=== PATIENT | female | born 1940 | race Caucasian/White ===

== ENCOUNTER 2023-12-19 08:12 | Inpatient (IN) | payer MEDICARE, SELFPAY ==
[2023-12-18 19:50] VITALS: BP 133/87
[2023-12-18 20:00] VITALS: BP 120/73
[2023-12-18 20:05] LABS: % Basophils 0.3 % (0-2); % Eosinophils 2.5 % (0-6); % Immature Granulocytes 0.3 % (0-0.5); % Monocytes 6.9 % (1.7-9.3); Absolute Eosinophils 0.2 10^3/uL (0-0.7); Absolute Lymphocytes 2.6 10^3/uL (1.2-3.4); Absolute Monocytes 0.6 10^3/uL (0.1-0.6); Absolute Neutrophils 5.4 10^3/uL (1.4-6.5); Hematocrit 39.6 % (37.0-47.0); Hemoglobin 13.8 g/dL (12.0-16.0); Mean Corp Hgb Conc. 34.8 g/dL (33.0-37.0); Mean Corpuscular Hgb 32.1 pg (27.0-31.0); Mean Corpuscular Volume 92.1 fL (81.0-99.0); Mean Platelet Volume 9.4 fL (7.4-10.4); Nucleated Red Blood Cells % 0 %; Platelet Count 282 10^3/uL (130-400); Red Cell Dist. Width 13.5 % (11.5-14.5); White Blood Cell Count 8.8 10^3/uL (4.8-10.8)
[2023-12-18 20:20] LABS: ALT (SGPT) 22 U/L (0-35); AST (SGOT) 38 U/L (14-36); Albumin 4.1 g/dl (3.5-5.0); Alkaline Phosphatase 89 U/L (38-126); Blood Urea Nitrogen 13 mg/dl (7-17); Calcium 9.8 mg/dl (8.4-10.2); Carbon Dioxide 27 mmol/L (22-30); Chloride 104 mmol/L (98-107); Glucose 111 mg/dl (70-99); Sodium 137 mmol/L (135-145); Total Bilirubin 0.6 mg/dl (0.2-1.3); Total Protein 7.1 g/dl (6.3-8.2); eGFR 49.86
[2023-12-18 20:22] LABS: Lipase 39 U/L (23-300)
[2023-12-18] MEDS: NSS 500 IV (22:00)
--- NOTE | 2023-12-18 22:15 | ED.GENMED ---
Addendum entered and electronically signed by Eduardo Cordova MD 12/19/23 02:24:
CT abd/pel report received from [facility], suggestive of possible RLL filling defect along with right hydronephrosis with stent in place - recommending CTA PE study. Notified admitting hospitalist.
Original Note:
History of Present Illness
General
Chief Complaint: Abdominal Symptoms
Source: patient
Exam Limitations: none
Time Seen by Provider: 12/18/23 20:41
Nursing documentation reviewed up to this point in time: agreed with
Travel History
Have you had any contact with someone who has COVID-19?: Unable to Answer
Do you have any symptoms of coronavirus? Fever > 100 degrees, chills, cough, shortness of breath, sore throat, loss of taste or smell, muscle aches, or headache?: No
History of Present Illness
History of Present Illness:
Patient discharged from [facility] yesterday, presents to ED secondary to worsening generalized weakness, along with intermittent abdominal pain and vomiting episode. Upon arrival, patient is found to be hypoxic, requiring oxygen.
During admission, patient was diagnosed with obstructing kidney stone, requiring stent placement, along with fluid. Patient has had upper respiratory symptoms, which now has resolved. During that admission, daughter states that patient had low
oxygen level, requiring oxygen. Patient is scheduled to have stent removed as an outpatient in 10 days. Upon arrival, patient denies any abdominal pain.
Review of Systems
Review of Systems
Allergies reviewed?: Yes
All Other Systems: ROS reviewed and negative except as documented in HPI and ROS
Constitutional: Denies fever or chills
EENT: Reports no symptoms
Respiratory: Reports no symptoms
Cardiac: Reports no symptoms
ABD/GI: Reports abdominal pain, nausea and vomiting; Denies diarrhea
: Reports no symptoms
Musculoskeletal: Reports no symptoms
Skin: Reports no symptoms
Neurological: Reports no symptoms
Phy Exam
Physical Exam
Physical Exam:
Physical Exam
General: no apparent distress, not acutely ill. afebrile. weak appearing. hypoxic
Head: nc/at. eomi
Neck: supple. no meningeal signs.
Heart: s1/s2 regular rate and rhythm, no murmur. equal radial pulses.
Lungs: no acute respiratory distress. clear bilaterally
Abdomen: normal bowel sounds. not tender.
Neuro: alert and oriented. no focal neurological deficits
Skin: no rash
Psychiatric: well kept. interactive and cooperative
Extremities: no edema. no calf tenderness.
Course
Orders/Labs/Results
Orders:
Orders
12/18/23 20:01
Complete Blood Count/With Diff Urgent
Comprehensive Metabolic Panel Urgent
Lipase Urgent
12/18/23 20:02
Electrocardiogram (*1) Urgent
Reason for Study: Abdominal Pain
EKG- Treatment ONCE
12/18/23 20:50
0.9% Sodium Chloride 500 ml [Nss] 500 ml IV BOLUS
12/18/23 20:51
US Legs, Left [US Periph Venous LOWER Ext LT] Urgent
Comment:
Reason For Exam: swelling, recent foot fx
12/18/23 22:49
Urinalysis Reflex To Culture Urgent
Date Specimen was Collected: 12/18/23
Time Specimen was Collected: 22:48
Urine Microscopic Reflex Cult Urgent
Urine Culture Urgent
MJ Source: U
Specimen Description:
Date Specimen was Collected: 12/18/23
Time Specimen was Collected: 22:48
12/18/23 23:13
CefTRIAXone [Rocephin] 1,000 mg IV NOW STA
12/18/23 23:40
Dexamethasone Sod Phosphate [Decadron] 10 mg IV NOW STA
Diphenhydramine [Benadryl] 25 mg IV NOW STA
12/19/23 01:00
CT Abd/pelvis W Iv Cont Urgent
Reason For Exam: flank pain with hx renal stent placement
Abnormal Lab Results
12/18/23 12/18/23
20:01 22:49
MCH 32.1 H pg
(27.0-31.0)
Creatinine 1.1 H mg/dL
(0.6-1.0)
Glucose 111 H mg/dl
(70-99)
AST 38 H U/L
(14-36)
Urine Ketones 1+ A
(Negative)
Ur Occult Blood Reflex 4+ A
(Negative)
Urine Nitrite (Reflex) Positive A
(Negative)
Leukocyte Esterase Rfl 2+ A
(Negative)
Urine RBC >100 A /HPF
(0-2)
Urine WBC (Reflex) 16-20 A /HPF
(0-5)
Urine Bacteria (Reflex) Few A
(Negative)
Urine Albumin (Reflex) 3+ A
(Neg - Trace)
12/18/23 20:01
12/18/23 20:01
Vital Signs
Initial and Last Documented VS:
Initial Vital Signs
Temp Pulse Resp BP Pulse Ox
98.1 F 81 21 133/87 88
12/18/23 19:50 12/18/23 19:50 12/18/23 19:50 12/18/23 19:50 12/18/23 19:50
Last Documented Vital Signs
Temp Pulse Resp BP Pulse Ox
97.6 F 67 18 144/79 93
12/19/23 01:57 12/19/23 01:57 12/19/23 01:57 12/19/23 01:57 12/19/23 01:57
MDM/Problems Addressed
MDM/Problems Addressed:
Patient has been wearing left Ortho boot, secondary to foot fracture, which occurred 3 weeks ago. As such, left lower leg ultrasound obtained to evaluate for potential DVT.
(urology) notified via [facility] - requests CT abd/pel.
UA noted. Rocephin started.
Urine cx and blood cx pending.
*Critical Care Note
Total Time (30-74mins, 75-104mins- exclusive of procedures): Not Applicable
ED Attending Note
-
Portions of this chart may have been created with voice recognition software.� Occasional wrong word or��sound alike� substitutions may have occurred due to the inherent limitations of voice recognition software.
Discharge Plan
Departure
Patient Disposition: Admit
Date of Disposition: 12/18/23
Time of Disposition: 23:17
Presentation/result/management discussed w/ accepting MD/DO: Hospitalist
Discharge Problem:
Urinary tract obstruction by kidney stone, Acute UTI
Interventions
Interventions:
*Risk Screen - Suicide Last Done: 12/18/23 19:50
*General Assessment Last Done: 12/18/23 19:50
*Neglect/Abuse Screening Last Done: 12/18/23 19:50
ED- Fall Risk Assessment Last Done: 12/19/23 00:38
*ED COVID-19 Vaccine History Last Done: 12/18/23 19:50
*Nursing Disposition Last Done: 12/19/23 01:41
SD-Yzascm-Svbivbnnrs Assessment Last Done: 12/19/23 00:38
Discharge Date and Time
Discharge Date/Time: 12/19/23 01:41
[2023-12-18 22:58] LABS: Urine Albumin 3+ (Neg - Trace); Urine Bilirubin Negative (Negative); Urine Character Slightly Cloudy (Clear); Urine Color Amber; Urine Glucose Negative (Negative); Urine Ketone 1+ (Negative); Urine Leukocyte 2+ (Negative); Urine Nitrite Positive (Negative); Urine Occult Blood 4+ (Negative); Urine Urobilinogen Negative (Neg - 1+)
[2023-12-18 23:00] VITALS: BP 115/65
[2023-12-18 23:05] LABS: Urine Red Blood Cell >100 /HPF (0-2); Urine Squamous Cell 0-2 /LPF (Few)
[2023-12-18 23:07] LABS: Urine Bacteria Few (Negative); Urine White Cell 16-20 /HPF (0-5)
--- NOTE | 2023-12-18 23:38 | HPS.HSE ---
Family Physician
-
Family Physician: Tamera Ruby DO
Chief Complaint
-
Weakness
History of Present Illness
83 woman discharged from yesterday, s/p stent, presents with worsening generalized weakness, intermittent abdominal pain and a vomiting episode. In our ED she was found to be hypoxic, requiring oxygen. During her recent
admission to [facility], she was diagnosed with an obstructing kidney stone, had stent placement, along with IV fluids. She also has had upper respiratory symptoms, which now has resolved. She is scheduled to have stent removed as an outpatient in 10
days. Upon arrival, patient denies any abdominal pain. At the time of my interview she was comfortable and dozing. History was from her daughter.
Medical History
Past Medical History
Past Medical History: Reports Other
Additional Past Medical History:
Recent kidney stone
GERD
Mood disorder
Dementia
Asthma
Past Surgical History: Reports Other
Additional Past Surgical History:
Recent stent placement
Social History
Tobacco: Non-smoker
Alcohol: None
Drug: None
Living: Snf
Family History
Family History: Not pertinent
Allergies / Home Medications
Allergies reflects when Allergies were last updated in [facility].
Home Medications with original date entered in [facility]
Allergy/Medication List:
Allergies
Allergy/AdvReac Type Severity Reaction Status Date / Time
Iodinated Contrast Media Allergy Unknown Unknown Verified 12/18/23 19:49
latex Allergy Unknown Unknown Verified 12/18/23 19:49
Home Medications
Lactobacillus rhamnosus GG 10 billion cell capsule (Culturelle) 1 cap PO DAILY 12/18/23
acetaminophen 325 mg tablet (Tylenol) 650 mg PO Q6H PRN mild pain/fever 12/18/23
albuterol sulfate 90 mcg/actuation aerosol inhaler 2 puff inhalation R Q4HPRN PRN wheezing 12/18/23
aspirin 81 mg tablet,delayed release 81 mg PO DAILY 12/18/23
calcium carbonate 600 mg-vitamin D3 20 mcg (800 unit) chewable tablet (Caltrate 600 plus D) 1 tab PO BID@0800,1700 12/18/23
carbamide peroxide 6.5 % ear drops (Ear Wax Drops) 5 drp EACH EAR BID@799,199912/18/23
cranberry extract 250 mg tablet 250 mg PO DAILY 12/18/23
cyanocobalamin (vitamin B-12) 100 mcg tablet 100 mcg PO DAILY 12/18/23
donepezil 10 mg tablet 10 mg PO DAILY@199912/18/23
fexofenadine 180 mg tablet 180 mg PO DAILY 12/18/23
fiber 2 cap PO BID@0800,199912/18/23
gabapentin 300 mg capsule 300 mg PO BID@0800,199912/18/23
guaifenesin 100 mg/5 mL oral liquid 200 mg PO Q6HPRN PRN cough 12/18/23
loperamide 2 mg tablet (Anti-Diarrheal (loperamide)) 2 mg PO Q8HPRN PRN loose stools 12/18/23
magnesium oxide 400 mg PO BID@0800,1700 12/18/23
meclizine 12.5 mg tablet 12.5 mg PO BIDPRN PRN dizziness 12/18/23
memantine 28 mg capsule sprinkle,extended release 24hr 28 mg PO DAILY 12/18/23
miconazole nitrate 2 % topical cream 1 applic topical BID@0800,1999 brenton-area/labia 12/18/23
mineral oil-hydrophil petrolat topical ointment 1 applic topical DAILY B/L arms and legs 12/18/23
mirtazapine 15 mg tablet 7.5 mg PO DAILY@199912/18/23
nystatin 100,000 unit/gram topical powder 1 applic topical TID@0800,1400,2000 breast/abdominal area 12/18/23
omega 4-ymp-ixi-fish oil 1,000 mg (120 mg-180 mg) capsule (Fish Oil) 1 cap PO DAILY 12/18/23
omeprazole 20 mg capsule,delayed release 40 mg PO BID@0800,1700 12/18/23
sertraline 50 mg tablet 50 mg PO DAILY 12/18/23
tamsulosin 0.4 mg capsule 0.4 mg PO DAILY 12/18/23
therapeutic multivitamin 1 tab PO DAILY 12/18/23
zinc oxide 20 % topical ointment 1 applic topical BID@0800,1999 sacrum 12/18/23
Review of Systems
-
Unable to obtain full review of systems at this time due to: Acuity
History Source: Patient
Physical Exam
Vital Signs
Vital Signs
Temp Pulse Resp BP Pulse Ox
98.1 F 70 16 120/73 94
12/18/23 19:50 12/18/23 21:58 12/18/23 21:58 12/18/23 20:00 12/18/23 21:58
Physical Exam
General: Well Developed, Well Nourished, No Apparent Distress and Comfortable
HEENT: NormoCephalic, Nose Appears Normal and Ears Appear Normal
Respiratory: Clear
Cardiac: S1/S2 and Regular Rhythm
GI: Soft, Non Tender and Non Distended
Musculoskeletal: No Clubbing, No Cyanosis and No Edema
Skin: Warm and Dry; No Rash
Psych: Calm
Laboratory Results
-
12/18/23 20:01
12/18/23 20:01
Laboratory Results
Total Bilirubin 0.6 mg/dl (0.2-1.3) 12/18/23 20:01
AST 38 U/L (14-36) H 12/18/23 20:01
ALT 22 U/L (0-35) 12/18/23 20:01
Alkaline Phosphatase 89 U/L (38-126) 12/18/23 20:01
Lipase 39 U/L (23-300) 12/18/23 20:01
Data Reviewed
-
Lab Data: Labs Reviewed by me
Impression/Plan
-
IMPRESSION:
83 woman who comes in with weakness after kidney stone
PLAN:
1. weakness s/p stone and stent, UA shows possible infection. NO WBC rise, no fever.
IV antibiotics
IV fluids
Urology eval in am
2. Otherwise stable, and will give usual meds.
Code: DNR
DVTp with VCD
[2023-12-19] MEDS: BENADRYL 25 MG IV ×2 (00:06→03:45)
[2023-12-19] MEDS: ROCEPHIN 1000 MG IV ×2 (00:06→22:19)
[2023-12-19] MEDS: DECADRON 10 MG IV ×2 (01:15→03:44)
[2023-12-19 01:57] VITALS: BP 144/79
[2023-12-19] MEDS: NSS 1000 IV ×2 (03:11→15:18)
--- NOTE | 2023-12-19 03:25 | PTCARENOTE ---
Addendum entered by Rell Simon RN 12/19/23 06:19:
Operations Staff Specialist Security contacted by radiologist Herber of pts newest CT results. ABA Ramirez made aware. PUBLIC RELATIONS ACCOUNT EXECUTIVE placed order for telemetry and heparin.
Original Note:
Operations Staff Specialist Security contacted by ABA Ramirez pt needed another CT d/t results and that prep was needed. Benadryl and Decadron given IV to pt per order, CT was contacted after. CT informed to bring pt down at 0445.
[2023-12-19 06:46] LABS: Hematocrit 42.2 % (37.0-47.0); Hemoglobin 14.5 g/dL (12.0-16.0); Mean Corp Hgb Conc. 34.4 g/dL (33.0-37.0); Mean Corpuscular Hgb 31.5 pg (27.0-31.0); Mean Corpuscular Volume 91.7 fL (81.0-99.0); Mean Platelet Volume 9.7 fL (7.4-10.4); Platelet Count 276 10^3/uL (130-400); Red Cell Dist. Width 13.2 % (11.5-14.5); White Blood Cell Count 7.4 10^3/uL (4.8-10.8)
[2023-12-19 07:17] LABS: Blood Urea Nitrogen 12 mg/dl (7-17); Calcium 9.1 mg/dl (8.4-10.2); Carbon Dioxide 24 mmol/L (22-30); Chloride 107 mmol/L (98-107); Glucose 159 mg/dl (70-99); Potassium 4.6 mmol/L (3.5-5.1); Sodium 137 mmol/L (135-145); eGFR > 60.00
[2023-12-19 07:30] VITALS: BP 158/82
[2023-12-19] MEDS: ASPIR LOW (ENTERIC COATED) 81 MG PO (08:17)
[2023-12-19] MEDS: FIBERCON 625 MG PO ×2 (08:17→20:25)
[2023-12-19] MEDS: PROTONIX 40 MG PO ×2 (08:17→16:25)
[2023-12-19] MEDS: CLARITIN 10 MG PO (08:17)
[2023-12-19] MEDS: NEURONTIN 300 MG PO ×2 (08:17→20:25)
[2023-12-19] MEDS: MAGNESIUM OXIDE 500 MG PO ×2 (08:17→16:25)
[2023-12-19] MEDS: OSCAL 500 + D 500 MG PO ×2 (08:17→16:25)
[2023-12-19] MEDS: FLOMAX 0.400000000000000022 MG PO (08:17)
[2023-12-19] MEDS: VITAMIN B-12 100 MCG PO (08:17)
[2023-12-19] MEDS: THERAGRAN 1 TABLET PO (08:18)
[2023-12-19] MEDS: NAMENDA 10 MG PO ×2 (08:18→20:25)
[2023-12-19] MEDS: ZOLOFT 50 MG PO (08:18)
[2023-12-19] MEDS: DEBROX EAR DROPS 5 DROP BOTH EARS ×2 (08:18→20:25)
[2023-12-19] MEDS: DESENEX/MITRAZOL/ZEASORB 1 APPLIC TOPICAL ×2 (08:18→20:26)
[2023-12-19] MEDS: VISBIOME 1 CAP PO (08:18)
[2023-12-19] MEDS: HYDROPHOR 1 APPLIC TOPICAL (08:19)
[2023-12-19] MEDS: ZINC OXIDE OINTMENT 1 APPLIC TOPICAL ×2 (08:19→20:26)
[2023-12-19] MEDS: HEPARIN 25000 UNITS/250 ML IV (08:24)
--- NOTE | 2023-12-19 11:13 | W.PN.HOSP.TC ---
Today's Communication/Plan
-
hep gtt
monitor HR and o2 sats
echo
iv abx
await urine culture
Assessment / Plan
Assessment / Plan
#Acute bilateral pulmonary embolism with mild right heart strain
With recent hospitalization ? Provoked due to decreased mobility
Started patient on heparin infusion
Eventual transition to Eliquis
Check echocardiogram
Lower extremity left Doppler negative
Will consult pulmonary
#Left foot fracture with Ortho boot
Venous Doppler negative for DVT
#Recent obstructive renal stone status post ureteral stent placement at [facility] by Dr. Gill
Abnormal UA
On prophylactic antibiotics until culture results
Urology has been consulted in ER
CT abdomen with stent in proper position. Hydronephrosis noted
Records requested.
#Dementia
Continue with memantine and donepezil
Unclear if with behavioral disturbances
#Mood disorder
Continue with sertraline and Remeron
#GERD
Continue with PPI
Neuropathy
Cont with gabapentin
DVT ppx-hep gtt
d/w with daughter Holley over the phone in details
Anticipated Discharge: > 48 hours
Subjective/Interval History
-
Date of Service: December 19, 2023
Denies any chest pain or sob
on room air
Objective Data
-
Labs:
Laboratory Results
12/19/23 12/19/23 12/19/23
06:15 06:15 06:15
WBC Cancelled 7.4
Hgb Cancelled 14.5
Hct Cancelled
Plt Count
APTT
Sodium
Potassium
Chloride
Carbon Dioxide
BUN
Creatinine
Glucose
Calcium
12/19/23 12/19/23 12/19/23
06:15 06:15 12:15
WBC
Hgb
Hct 42.2
Plt Count Cancelled 276
APTT 34.0 Pending
Sodium 137
Potassium 4.6
Chloride 107
Carbon Dioxide 24
BUN 12
Creatinine 0.9
Glucose 159 H
Calcium 9.1
Vital Signs:
Vital Signs
Temp Pulse Resp BP Pulse Ox
97.9 F 66 16 158/82 92
12/19/23 07:30 12/19/23 07:30 12/19/23 07:30 12/19/23 07:30 12/19/23 07:30
I&O
12/18/23 12/19/23 12/20/23
06:59 06:59 06:59
Intake Total 125 / 125
Balance 125 / 125
Physical Exam
-
General: Well Developed and No Apparent Distress
HEENT: Normocephalic, Atraumatic and Moist Mucous Membranes
Respiratory: Clear to Auscultation
Cardiac: Regular Rhythm and S1/S2; Negative Murmur, Rub or Gallop
GI: Soft, Nontender, Nondistended and Normal Bowel Sounds; Negative Organomegaly
Rectal: Deferred by Provider
Musculoskeletal: No Clubbing, No Cyanosis and No Edema
Skin: Negative Rash
Neuro: Awake, No Motor Deficits and Nonfocal/Grossly Intact
Psych: Calm and Apparent Dementia
Data Reviewed
-
Total Time Spent with Patient (in minutes): 56
[2023-12-19] MEDS: TYLENOL 1000 MG PO (12:03)
[2023-12-19] MEDS: MYLICON 80 MG PO (12:03)
--- NOTE | 2023-12-19 12:46 | W.PN.URO.CBU ---
Today's Communication / Plan
-
no gu creative intern[vention if family returns tid=dipika james-xt me
Assessment / Plan
-
stent pain and abd pi=ain after recent stenting Has 6 mm stone rt renal pelvis and some rt sided stranding. no fevr chils or wbc Await ur cxs. AT this poinr will defer to r]urology at [facility] for management of stone and stent in light of
pulm emboli . While at will encourage fluids and watch cxs Antibiotics per cx
Diagnosis
-
Date of Service: December 19, 2023
-
Patient Diagnosis:
stone with stent has stent pain stione not obstrucvting await cxs but sxs probably due to pulm emboli
Post Op Day:
Subjective
-
rlq discomfort
Objective
-
Vital Signs
Temp Pulse Resp BP Pulse Ox
97.9 F 66 16 158/82 92
12/19/23 07:30 12/19/23 07:30 12/19/23 07:30 12/19/23 07:30 12/19/23 07:30
Intake and Output
12/18/23 12/19/23 12/20/23
06:59 06:59 06:59
Intake Total 125 / 125
Balance 125 / 125
Intake:
IV fluids (Total) 125 / 125
Laboratory Results
12/19/23 06:15
12/19/23 06:15
Review of Systems
-
Constitutional: Fatigue
Respiratory: Cough and Trouble Breathing
Abdomen/GI: Abdominal Pain and Nausea
: Frequency and Flank Pain
Physical Exam
-
General - well developed, well nourished, no acute distress
Chest - clear bilaterally
Abdomen - soft, non-tender, positive bowel sounds, no CVAT, no incisional pain or distention
Genitalia - normal
Rectal - normal
Skin - warm & dry with no rash
Neuro - AOx3, no motor deficits
Extremities - no clubbing, no cyanosis, no edema
Incision - clean, dry
Dressing - clean, dry, intact
Counseling
-
per hospitalist
Care Review
Data Reviewed
Discussed with: Hospitalist and Nursing
CT Scan: Image Pers Reviewed
[2023-12-19 12:47] LABS: APTT 142.5 Sec (23.4-35.0)
--- NOTE | 2023-12-19 14:24 | CON.PUL ---
Consultation
Consultation Request
Date/Time Consultation Requested: 12/19/2023
Date/Time Consultation Performed: 12/19/2023
Requesting Provider: Dr. Mo
Performing Provider: Dr. Scott Merritt
Reason for Consultation: Acute pulmonary embolism
Medical History
-
History of Present Illness:
83-year-old woman discharged from [facility] yesterday after placement of urinary stent, presented with generalized weakness, intermittent abdominal pain and vomiting. Found to be hypoxic. During the hospital stay patient was diagnosed
with kidney stone.
Patient unable to provide history.
Evaluation in the hospital included a CT of the chest abdomen and pelvis. She was found to have bilateral pulmonary embolism.
Currently on very low rate ox supplementation.
Not on distress.
Due to to her underlying dementia unable to provide detailed history.
On a heparin drip.
Past Medical History
Past Medical History: Other (See assessment and plan section)
Social History
Tobacco: Non-smoker
Alcohol: None
Drug: None
Living: Senior Living
Family History
Family History: Reviewed & Not Pertinent
Allergies / Home Medications
Allergies
Allergy/AdvReac Type Severity Reaction Status Date / Time
Iodinated Contrast Media Allergy Unknown Unknown Verified 12/18/23 19:49
latex Allergy Unknown Unknown Verified 12/18/23 19:49
Home Medications
�Medication �Instructions �Recorded �Confirmed �Last Taken �Type
Lactobacillus rhamnosus GG 10 1 cap PO DAILY 12/18/23 12/18/23 Unknown History
billion cell capsule (Culturelle)
acetaminophen 325 mg tablet 650 mg PO Q6H PRN mild pain/fever 12/18/23 12/18/23 Unknown History
(Tylenol)
albuterol sulfate 90 mcg/actuation 2 puff inhalation R Q4HPRN PRN 12/18/23 12/18/23 Unknown History
aerosol inhaler wheezing
aspirin 81 mg tablet,delayed 81 mg PO DAILY Blood Clot 12/18/23 12/18/23 Unknown History
release Prevention/Tx
calcium carbonate 600 mg-vitamin 1 tab PO BID@0800,1700 Supplement 12/18/23 12/18/23 Unknown History
D3 20 mcg (800 unit) chewable
tablet (Caltrate 600 plus D)
carbamide peroxide 6.5 % ear drops 5 drp EACH EAR BID@799,1999 EAR 12/18/23 12/18/23 Unknown History
(Ear Wax Drops) WAX
cranberry extract 250 mg tablet 250 mg PO DAILY Supplement 12/18/23 12/18/23 Unknown History
cyanocobalamin (vitamin B-12) 100 100 mcg PO DAILY Supplement 12/18/23 12/18/23 Unknown History
mcg tablet
donepezil 10 mg tablet 10 mg PO DAILY@199912/18/23 12/18/23 Unknown History
fexofenadine 180 mg tablet 180 mg PO DAILY 12/18/23 12/18/23 Unknown History
fiber 2 cap PO BID@08,199912/18/23 12/18/23 Unknown History
gabapentin 300 mg capsule 300 mg PO BID@799,199912/18/23 12/18/23 Unknown History
guaifenesin 100 mg/5 mL oral liquid 200 mg PO Q6HPRN PRN cough 12/18/23 12/18/23 Unknown History
loperamide 2 mg tablet 2 mg PO Q8HPRN PRN loose stools 12/18/23 12/18/23 Unknown History
(Anti-Diarrheal (loperamide))
magnesium oxide 400 mg PO BID@0800,1700 12/18/23 12/18/23 Unknown History
meclizine 12.5 mg tablet 12.5 mg PO BIDPRN PRN dizziness 12/18/23 12/18/23 Unknown History
memantine 28 mg capsule 28 mg PO DAILY 12/18/23 12/18/23 Unknown History
sprinkle,extended release 24hr
miconazole nitrate 2 % topical 1 applic topical BID@799,199912/18/23 12/18/23 Unknown History
cream brenton-area/labia
mineral oil-hydrophil petrolat 1 applic topical DAILY B/L arms 12/18/23 12/18/23 Unknown History
topical ointment and legs
mirtazapine 15 mg tablet 7.5 mg PO DAILY@199912/18/23 12/18/23 Unknown History
nystatin 100,000 unit/gram topical 1 applic topical 12/18/23 12/18/23 Unknown History
powder TID@0800,1400,1999
breast/abdominal area
omega 2-ydd-ftt-fish oil 1,000 mg 1 cap PO DAILY 12/18/23 12/18/23 Unknown History
(120 mg-180 mg) capsule (Fish Oil)
omeprazole 20 mg capsule,delayed 40 mg PO BID@0800,1700 12/18/23 12/18/23 Unknown History
release Gastrointestinal Issue
sertraline 50 mg tablet 50 mg PO DAILY Mental 12/18/23 12/18/23 Unknown History
Health/Anxiety
tamsulosin 0.4 mg capsule 0.4 mg PO DAILY 12/18/23 12/18/23 Unknown History
therapeutic multivitamin 1 tab PO DAILY Supplement 12/18/23 12/18/23 Unknown History
zinc oxide 20 % topical ointment 1 applic topical BID@799,199912/18/23 12/18/23 Unknown History
sacrum
Review of Systems
-
History Source: Patient
All other systems: Negative unless noted
Vitals / Labs / Diagnostic Testing
Vital Signs
Temp Pulse Resp BP Pulse Ox
97.9 F 66 16 158/82 92
12/19/23 07:30 12/19/23 07:30 12/19/23 07:30 12/19/23 07:30 12/19/23 07:30
Lab Data
12/19/23 06:15
12/19/23 06:15
Laboratory Results
12/19/23 12/19/23
06:15 12:06
APTT 34.0 142.5 H
Diagnostic Testing:
Physical Exam
-
HEENT: Normocephalic
Cardiovascular: S1/S2
Respiratory: Clear
GI: Soft and Non Distended
Neurology: Awake
General: Respiratory Distress (n)
Assessment
-
83-year-old woman who recently was discharged from [facility] after developing obstructive uropathy, status post stent placement, found to have kidney stone. Back to the hospital not feeling well. Evaluation including CT chest abdomen
pelvis. Discovered to have bibasilar pulmonary embolism.
Acute respiratory insufficiency-2 L of oxygen.
Acute pulmonary embolism-provoked due to recent hospital stay
CT chest: Reviewed there are central pulmonary arterial filling defects in the right lower lobe pulmonary artery and in the segmental pulmonary arteries of both lower lobes consistent with acute bilateral pulmonary arterial embolic disease.
There is no pericardial or pleural effusion. There is a mild amount of subpleural subsegmental atelectasis and scarring in the basilar segments of both lower lobes and in the lingula.
Recent obstructive kidney stone [facility]: Status post stent.
Conditions present prior admission:
GERD
Kidney stones status post double-J stents [facility] 11/2023
Dementia
neuropathy
History of asthma
Left foot fracture: Orthopedic boot in place
Lower extremity Dopplers negative for DVT
Assessment and plan:
Provoked pulmonary embolism.
Hemodynamically stable, not tachycardic.
Minimal oxygen requirements.
Lower extremity Dopplers without DVT
Continue anticoagulation, okay to transition to oral anticoagulation in the next 24 hours if she remains stable.
Follow PTT.
Would recommend 3 months of anticoagulation as long as the patient is mobile at that time.
-
Incentive spirometry
Wean down oxygen as able. Maintain pulse ox above 90%.
-
Antibiotics for possible UTI.
Recent double-J stents placement.
-
Outpatient pulmonary follow-up.
[2023-12-19 16:00] VITALS: BP 144/71
--- NOTE | 2023-12-19 16:00 | CM ---
Patient seen bedside, unable to conduct initial assessment due to confusion, patient reports she lives with her siblings and her grandmother Yancy. CM left voicemail to [facility] requesting to speak to patients nurse to obtain PLOF, awaiting return call
back. CM spoke with patients daughter, Holley, to conduct initial assessment. Per Holley, patient resides in the memory care unit, uses a walker to ambulate. Holley reports patient has been to [facility] in 2018. Holley confirms patients PCP
Tamera Ruby, pharmacy [facility]. CM will continue to follow for discharge planning needs, per PT, no skilled need.
Plan; return to [facility] when stable
[2023-12-19 18:55] VITALS: BP 127/84
--- NOTE | 2023-12-19 18:55 | PTCARENOTE ---
Pt was changed and depends was soaked with bloody urine. Dr. Mo aware. BP is 127/84. Pt on heparin gtt at 16 ml/hr. If bleeding continues, will hold heparin.
[2023-12-19 20:06] LABS: Hematocrit 38.6 % (37.0-47.0); Hemoglobin 13.5 g/dL (12.0-16.0)
[2023-12-19 20:25] LABS: APTT 179.2 Sec (23.4-35.0)
[2023-12-19] MEDS: ARICEPT 10 MG PO (20:25)
[2023-12-19] MEDS: REMERON 7.5 MG PO (20:25)
[2023-12-19] MEDS: STERILE WATER FOR INJECTION 10 ML IV (22:18)
[2023-12-19 23:37] VITALS: BP 151/85
[2023-12-20] MEDS: HEPARIN 25000 UNITS/250 ML IV (03:46)
[2023-12-20] MEDS: NSS 1000 IV (03:58)
[2023-12-20 04:07] LABS: Hematocrit 36.3 % (37.0-47.0); Hemoglobin 12.5 g/dL (12.0-16.0)
[2023-12-20 04:17] LABS: APTT 78.2 Sec (23.4-35.0)
[2023-12-20 07:00] VITALS: BP 143/85
[2023-12-20] MEDS: DESENEX/MITRAZOL/ZEASORB 1 APPLIC TOPICAL ×2 (07:54→19:40)
[2023-12-20] MEDS: DEBROX EAR DROPS 5 DROP BOTH EARS (07:54)
[2023-12-20] MEDS: ZINC OXIDE OINTMENT 1 APPLIC TOPICAL ×2 (07:56→19:41)
[2023-12-20] MEDS: FLOMAX 0.400000000000000022 MG PO (07:56)
[2023-12-20] MEDS: FIBERCON 625 MG PO ×2 (07:56→19:40)
[2023-12-20] MEDS: NAMENDA 10 MG PO ×2 (07:56→19:40)
[2023-12-20] MEDS: MAGNESIUM OXIDE 500 MG PO ×2 (07:56→16:03)
[2023-12-20] MEDS: VISBIOME 1 CAP PO (07:56)
[2023-12-20] MEDS: CLARITIN 10 MG PO (07:56)
[2023-12-20] MEDS: OSCAL 500 + D 500 MG PO ×2 (07:56→16:03)
[2023-12-20] MEDS: THERAGRAN 1 TABLET PO (07:56)
[2023-12-20] MEDS: VITAMIN B-12 100 MCG PO (07:56)
[2023-12-20] MEDS: PROTONIX 40 MG PO ×2 (07:56→16:03)
[2023-12-20] MEDS: NEURONTIN 300 MG PO ×2 (07:56→19:40)
[2023-12-20] MEDS: ZOLOFT 50 MG PO (07:56)
[2023-12-20] MEDS: ASPIR LOW (ENTERIC COATED) 81 MG PO (07:56)
[2023-12-20] MEDS: HYDROPHOR 1 APPLIC TOPICAL (07:59)
[2023-12-20] MEDS: MAXIPIME 2000 MG IV ×2 (09:15→17:01)
[2023-12-20] MEDS: STERILE WATER FOR INJECTION 10 ML IV ×2 (09:15→17:01)
--- NOTE | 2023-12-20 10:09 | W.PN.PUL3 ---
Today's Communication / Plan
-
AC
Check RLE duplex US
Transition to NOAC tomorrow assuming it is affordable
Maintain SpO2>90%
Assessment
-
83-year-old woman who recently was discharged from [facility] after developing obstructive uropathy, status post stent placement, found to have kidney stone. Back to the hospital not feeling well. Evaluation including CT chest abdomen
pelvis. Discovered to have bibasilar pulmonary embolism.
Acute respiratory insufficiency-2 L of oxygen.
Acute submassive pulmonary embolism- likely provoked due to recent hospital stay
CTA chest: Reviewed there are central pulmonary arterial filling defects in the right lower lobe pulmonary artery and in the segmental pulmonary arteries of both lower lobes consistent with acute bilateral pulmonary arterial embolic disease.
There is no pericardial or pleural effusion. There is a mild amount of subpleural subsegmental atelectasis and scarring in the basilar segments of both lower lobes and in the lingula.
Recent obstructive kidney stone [facility]: Status post stent.
Conditions present prior admission:
GERD
Kidney stones status post double-J stents [facility] 11/2023
Dementia
neuropathy
Morbid obesity
History of asthma
Left foot fracture: Orthopedic boot in place
Lower extremity Dopplers negative for DVT
Assessment and plan:
Provoked pulmonary embolism.
Hemodynamically stable, not tachycardic.
Minimal oxygen requirements.
Left lower extremity Doppler without DVT and normal RV size and systolic function on TTE from 12/19/2023
Check right lower extremity Doppler to r/o DVT
Continue anticoagulation, okay to transition to oral anticoagulation in the next 24 hours if she remains stable.
Follow PTT while on heparin gtt.
Would recommend 3 months of anticoagulation as long as the patient is mobile at that time.
Outpatient hematology consultation recommended as she does carry risk factors for continued provoked PE given her morbid obesity and suspected sedentary lifestyle
-
Incentive spirometry
Wean down oxygen as able. Maintain pulse ox above 90%.
-
Antibiotics for possible UTI.
Recent double-J stents placement.
-
Outpatient pulmonary follow-up.
Total time spent today was 35 minutes for this encounter. Time includes reviewing laboratory test/imaging results, reviewing pertinent medical records, obtaining and reviewing medical history, performing an appropriate exam, ordering medications,
tests and procedures. Time also includes documentation of this encounter, coordinating patient care and communicating with other healthcare professionals. Total time does not include separately billed tests performed on this date of service.
Subjective Data
-
Date of Service:
Date of Service: December 20, 2023
Chief Complaint: Pulmonary Follow Up
Subjective:
Patient seen today at bedside. She feels well and denies shortness of breath. Currently on 2 L/min nasal cannula. She is on heparin drip as well. Per nursing staff, patient has baseline confusion/dementia.
Review of Systems
General: Other (Unable to obtain due to patient's acute clinical status/dementia)
Objective Data
Data Reviewed
Vital Signs / I&O / Oxygen:
Vital Signs
Temp Pulse Resp BP Pulse Ox
97.5 F 66 20 143/85 96
12/20/23 07:00 12/20/23 07:00 12/20/23 07:00 12/20/23 07:00 12/20/23 07:00
Intake and Output
12/19/23 12/20/23 12/21/23
06:59 06:59 06:59
Intake Total 125 / 125 600 / 600
Balance 125 / 125 600 / 600
SaO2 96
Nasal Cannula flow liters per 2
minute
Physical Exam
General: Respiratory Distress (negative), Comfortable and Other (Morbidly obese)
HEENT: Normocephalic and Anicteric
Cardiovascular: S1-S2 and Peripheral Edema (negative)
Respiratory: Wheeze (negative), Crackles (negative), Rhonchi (negative) and Non-Labored Respirations
GI: Soft, Non Tender, Normal Bowel Sounds and Other (Abdominal obesity)
Neurology: Awake and Alert
Skin: Warm, Dry and Cyanosis (negative)
Labs/Micro/Reports
Lab Data
12/19/23 06:15
Laboratory Results
12/19/23 12/19/23 12/20/23
12:06 19:56 03:53
APTT 142.5 H 179.2 H* 78.2 H
Microbiology
12/19/23 05:32 Nose MRSA Screen - Final
No Methicillin Resistant Staphylococcus aureus isolated.
12/18/23 22:49 Urine Urine Culture - Preliminary
Enterococcus species
Pseudomonas aeruginosa
[2023-12-20 10:12] LABS: Hematocrit 39.8 % (37.0-47.0); Hemoglobin 13.6 g/dL (12.0-16.0)
[2023-12-20] MEDS: AMPICILLIN 104 MG IV ×3 (10:14→22:19)
[2023-12-20 10:18] LABS: APTT 86.3 Sec (23.4-35.0)
[2023-12-20 11:00] VITALS: BP 120/69
--- NOTE | 2023-12-20 11:34 | W.PN.HOSP.TC ---
Today's Communication/Plan
-
Monitor urinary output
Continue with heparin for now
Hemoglobin trend daily
Switch to ampicillin and cefepime
Assessment / Plan
Assessment / Plan
#Acute bilateral pulmonary embolism with mild right heart strain
With recent hospitalization ? Provoked due to decreased mobility
Started patient on heparin infusion and continue for now. Patient with mild hematuria likely due to recent ureteral stent placement. Monitor for now. Hemoglobin has been stable.
Eventual transition to Eliquis
ECHO limited study as patient was argumentative. EF 55 to 60%. Diastolic function indeterminate. Right heart pressures could not be determined. Normal right ventricular size. Normal right ventricular systolic function.
Lower extremity left Doppler negative
Will consult pulmonary
#Left foot fracture with Ortho boot
Venous Doppler negative for DVT
#Recent obstructive renal stone status post ureteral stent placement at [place] by Dr. Gill
# Polymicrobial urinary tract infection with Enterococcus and Pseudomonas
Stop ceftriaxone. Patient on ampicillin and cefepime
Urology has been consulted in ER
CT abdomen with stent in proper position. Hydronephrosis noted
Records requested.
#Dementia
Continue with memantine and donepezil
Unclear if with behavioral disturbances
#Mood disorder
Continue with sertraline and Remeron
#GERD
Continue with PPI
Neuropathy
Cont with gabapentin
DVT ppx-hep gtt
d/w with daughter Holley over the phone in details on 12/18 and 12/19
Anticipated Discharge: > 48 hours
Subjective/Interval History
-
Date of Service: December 20, 2023
requiring 2L oxygen
no chest pain or sob
Objective Data
-
Labs:
Laboratory Results
12/20/23 12/20/23 12/20/23
03:53 10:01 16:00
Hgb 12.5 13.6
Hct 36.3 L 39.8
APTT 78.2 H 86.3 H Pending
Vital Signs:
Vital Signs
Temp Pulse Resp BP Pulse Ox
97.4 F 66 16 120/69 95
12/20/23 11:00 12/20/23 11:00 12/20/23 11:00 12/20/23 11:00 12/20/23 11:00
I&O
12/19/23 12/20/23 12/21/23
06:59 06:59 06:59
Intake Total 125 / 125 600 / 600
Balance 125 / 125 600 / 600
Physical Exam
-
General: Well Developed and No Apparent Distress
HEENT: Normocephalic, Atraumatic and Moist Mucous Membranes
Respiratory: Clear to Auscultation
Cardiac: Regular Rhythm and S1/S2; Negative Murmur, Rub or Gallop
GI: Soft, Nontender, Nondistended and Normal Bowel Sounds; Negative Organomegaly
Rectal: Deferred by Provider
Musculoskeletal: No Clubbing, No Cyanosis and No Edema
Skin: Negative Rash
Neuro: Awake, No Motor Deficits and Nonfocal/Grossly Intact
Psych: Calm and Apparent Dementia
Data Reviewed
-
Total Time Spent with Patient (in minutes): 56
[2023-12-20 15:00] VITALS: BP 118/79
[2023-12-20 18:19] LABS: APTT 103.2 Sec (23.4-35.0)
[2023-12-20 19:35] VITALS: BP 115/65
[2023-12-20] MEDS: ARICEPT 10 MG PO (19:40)
[2023-12-20] MEDS: REMERON 7.5 MG PO (19:40)
[2023-12-20] MEDS: DEBROX EAR DROPS 1 DROP BOTH EARS (19:41)
[2023-12-20] MEDS: STERILE WATER FOR INJECTION IV (22:31)
[2023-12-20 23:35] VITALS: BP 136/75
[2023-12-21] MEDS: HEPARIN 25000 UNITS/250 ML IV (00:52)
[2023-12-21] MEDS: STERILE WATER FOR INJECTION 10 ML IV ×3 (01:45→17:06)
[2023-12-21] MEDS: MAXIPIME 2000 MG IV ×3 (01:45→17:06)
[2023-12-21 03:29] VITALS: BP 135/83
[2023-12-21] MEDS: AMPICILLIN 104 MG IV ×2 (04:05→09:29)
[2023-12-21 07:03] LABS: APTT 93.1 Sec (23.4-35.0)
[2023-12-21 07:12] LABS: % Basophils 0.6 % (0-2); % Eosinophils 4.5 % (0-6); % Immature Granulocytes 0.3 % (0-0.5); % Monocytes 6.3 % (1.7-9.3); % Neutrophils 43.3 % (42.2-75.2); Absolute Eosinophils 0.3 10^3/uL (0-0.7); Absolute Lymphocytes 2.9 10^3/uL (1.2-3.4); Absolute Monocytes 0.4 10^3/uL (0.1-0.6); Absolute Neutrophils 2.8 10^3/uL (1.4-6.5); Hematocrit 38.9 % (37.0-47.0); Hemoglobin 13.1 g/dL (12.0-16.0); Mean Corp Hgb Conc. 33.7 g/dL (33.0-37.0); Mean Corpuscular Hgb 31.7 pg (27.0-31.0); Mean Corpuscular Volume 94.2 fL (81.0-99.0); Mean Platelet Volume 9.9 fL (7.4-10.4); Nucleated Red Blood Cells % 0 %; Platelet Count 276 10^3/uL (130-400); Red Blood Cell Count 4.13 10^6/uL (4.20-5.40); Red Cell Dist. Width 13.5 % (11.5-14.5); White Blood Cell Count 6.4 10^3/uL (4.8-10.8)
[2023-12-21 07:33] LABS: Blood Urea Nitrogen 14 mg/dl (7-17); Calcium 8.8 mg/dl (8.4-10.2); Carbon Dioxide 24 mmol/L (22-30); Chloride 112 mmol/L (98-107); Glucose 96 mg/dl (70-99); Sodium 141 mmol/L (135-145)
[2023-12-21 07:36] VITALS: BP 132/67
--- NOTE | 2023-12-21 07:57 | W.PN.HOSP.TC ---
Today's Communication/Plan
-
Will ask ID for input
Continue with heparin drip
Right lower extremity Doppler pending
PT and OT
Assessment / Plan
Assessment / Plan
#Acute bilateral pulmonary embolism with mild right heart strain
With recent hospitalization ? Provoked due to decreased mobility
Started patient on heparin infusion and continue for now. Patient with mild hematuria likely due to recent ureteral stent placement. Monitor for now. Hemoglobin has been stable.
Eventual transition to Eliquis
Right lower extremity Doppler pending
ECHO limited study as patient was argumentative. EF 55 to 60%. Diastolic function indeterminate. Right heart pressures could not be determined. Normal right ventricular size. Normal right ventricular systolic function.
Lower extremity left Doppler negative
Will consult pulmonary
#Left foot fracture with Ortho boot
Venous Doppler negative for DVT
Per daughter patient is able to ambulate with a walker and improved
#Recent obstructive renal stone status post ureteral stent placement at [place] by Dr. Gill
# Polymicrobial urinary tract infection with VRE Enterococcus and Pseudomonas
Culture data noted with clancy resistance to VRE and only susceptible to gentamicin and oral linezolid
Continue with cefepime. May require Zyvox or Gentamycin or may need additional susceptibility
If need for zyvox may need to hold SSRI and remeron
CT abdomen with stent in proper position. Hydronephrosis noted
Records requested.
Will request ID for input
#Dementia
Continue with memantine and donepezil
Unclear if with behavioral disturbances
#Mood disorder
Continue with sertraline and Remeron
#GERD
Continue with PPI
Neuropathy
History of sciatica
Cont with gabapentin
PT/OT ordered
DVT ppx-hep gtt
d/w with daughter Holley over the phone in details on daily basis. Last update 12/20
Anticipated Discharge: > 48 hours
Subjective/Interval History
-
Date of Service: December 21, 2023
on 2L oxygen
no chest pain or sob
Objective Data
-
Labs:
Laboratory Results
12/20/23 12/21/23
23:16 06:41
WBC 6.4
Hgb 13.1
Hct 38.9
Plt Count 276
APTT 116.0 H 93.1 H
Sodium 141
Potassium 4.0
Chloride 112 H
Carbon Dioxide 24
BUN 14
Creatinine 1.0
Glucose 96
Calcium 8.8
Vital Signs:
Vital Signs
Temp Pulse Resp BP Pulse Ox
98.8 F 75 20 135/83 94
12/21/23 03:29 12/21/23 03:29 12/21/23 03:29 12/21/23 03:29 12/21/23 03:29
I&O
12/20/23 12/21/23 12/22/23
06:59 06:59 06:59
Intake Total 600 / 600 810 / 810
Balance 600 / 600 810 / 810
Physical Exam
-
General: Well Developed and No Apparent Distress
HEENT: Normocephalic, Atraumatic and Moist Mucous Membranes
Respiratory: Clear to Auscultation
Cardiac: Regular Rhythm and S1/S2; Negative Murmur, Rub or Gallop
GI: Soft, Nontender, Nondistended and Normal Bowel Sounds; Negative Organomegaly
Rectal: Deferred by Provider
Musculoskeletal: No Clubbing, No Cyanosis and No Edema
Skin: Negative Rash
Neuro: Awake, No Motor Deficits and Nonfocal/Grossly Intact
Psych: Calm and Apparent Dementia
Data Reviewed
-
Total Time Spent with Patient (in minutes): 55
[2023-12-21] MEDS: VITAMIN B-12 100 MCG PO (09:27)
[2023-12-21] MEDS: CLARITIN 10 MG PO (09:27)
[2023-12-21] MEDS: ASPIR LOW (ENTERIC COATED) 81 MG PO (09:27)
[2023-12-21] MEDS: VISBIOME 1 CAP PO (09:27)
[2023-12-21] MEDS: THERAGRAN 1 TABLET PO (09:27)
[2023-12-21] MEDS: PROTONIX 40 MG PO ×2 (09:27→17:06)
[2023-12-21] MEDS: NAMENDA 10 MG PO (09:27)
[2023-12-21] MEDS: FIBERCON 625 MG PO (09:27)
[2023-12-21] MEDS: MAGNESIUM OXIDE 500 MG PO ×2 (09:27→17:06)
[2023-12-21] MEDS: FLOMAX 0.400000000000000022 MG PO (09:27)
[2023-12-21] MEDS: ZOLOFT 50 MG PO (09:27)
[2023-12-21] MEDS: NEURONTIN 300 MG PO (09:27)
[2023-12-21] MEDS: DEBROX EAR DROPS 1 DROP BOTH EARS (09:28)
[2023-12-21] MEDS: OSCAL 500 + D 500 MG PO ×2 (09:28→17:16)
[2023-12-21] MEDS: DESENEX/MITRAZOL/ZEASORB 1 APPLIC TOPICAL (09:28)
[2023-12-21] MEDS: HYDROPHOR 1 APPLIC TOPICAL (09:28)
[2023-12-21] MEDS: ZINC OXIDE OINTMENT 1 APPLIC TOPICAL (09:28)
--- NOTE | 2023-12-21 09:53 | CM ---
CM referral re Eliquis cost.
Verified Pharmacy with [facility].
Per [facility]- medication lookup, cost will be $47 per month.
Plan: back to [facility] when stable.
PT/OT (P)
--- NOTE | 2023-12-21 11:04 | PTCARENOTE ---
Notified provider that the patient had continued dark red blood in her urine and that it was foul smelling.
[2023-12-21 11:30] LABS: Glucose - Point of Care 102 mg/dl (70-99)
[2023-12-21 11:38] VITALS: BP 140/76
[2023-12-21 13:59] LABS: APTT 90.7 Sec (23.4-35.0)
--- NOTE | 2023-12-21 15:22 | CON.ID ---
Consultation
-
Date/Time Consultation Requested: December 21, 2023 1210
Date/Time Consultation Performed: December 21, 2023 1522
Requesting Provider: Dr. Ibrahima Mo
Performing Provider: Dr. Shyla Lucas
Reason for Consultation: VRE, Pseudomonas UTI
Chief Complaint / Past History
Chief Complaint
Shortness of breath and abdominal pain
History of Present Illness
History obtained from her daughter at bedside since patient has dementia and unable to provide full history. She is an 83-year-old female with history of recurrent UTI, nephrolithiasis, who was recently hospitalized at [facility] for 4 days due
to obstructive right uropathy status post right ureter stent placement. She was discharged from the hospital December 16. She was sent to the ER on December 17 due to shortness of breath, hypoxia, nausea, abdominal pain. CAT scan of the abdomen and
pelvis showed large PE, right stent in place with mild to moderate hydronephrosis and mild KAEL-ureteral inflammation. Patient was placed on cefepime. The urine culture came back positive for Pseudomonas and VRE resistant to ampicillin. Per
daughter, patient has been complaining of pain with urination and the abdomen abdominal pain located on the right side. Also she noticed gross hematuria. No fever or chills. There is slight change in her mental status.
Past History
Additional Past Medical History:
Dementia
Asthma
nephrolithiasis
Recent obstructive uropathy s/p right ureter stent
Neuropathy
Sciatica
Mood disorder
Recurrent UTI
Class III obesity BMI 47
left foot fracture
h/o obstipation/perforated bowel s/p repair
B TKA
Allergy History:
Iodinated Contrast Media Allergy (Unknown, Verified 12/18/23 19:49)
Unknown
latex Allergy (Unknown, Verified 12/18/23 19:49)
Unknown
Medications Reviewed: Yes
Current Antibiotics:
Unasyn
Cefepime
Social History
Tobacco: Non-Smoker
Alcohol: None
Drug: None
Living: Retirement ([facility] care)
Family History
Family History: Not Pertinent
Review of Systems
Review of Systems
General: Negative Fever or Chills
Cardiovascular: Negative Chest Pain
Respiratory: Dyspnea; Negative Cough
Gasteroenterology: Nausea
Genital / Urological: Dysuria
Endocrine: Weakness
Neurological: Negative Headache or Dizziness
All systems: All other systems were reviewed and were negative
Vital Signs
Temp Pulse Resp BP Pulse Ox
98.1 F 64 12 140/76 93
12/21/23 11:38 12/21/23 11:38 12/21/23 11:38 12/21/23 11:38 12/21/23 11:38
Physical Exam
Physical Exam
Constitutional: No Acute Distress
Eyes: No Conjunctival Hemorrhage and Sclera Anicteric
Cardiovascular: Regular Rate and S1/S2
Pulmonary: Clear
Gastrointestinal: Soft, Tender (right pelvis), Non Distended and Normal Bowel Sounds
Genito-Urinary: Suprapubic Tenderness (right pelvis); Negative CVA Tenderness
Extremities: Negative Edema
Musculoskeletal: Negative Joint Swelling (Bilateral knees) or Joint Effusion (bilateral knees)
Neurological: Awake and Alert
Psychological: Confused
Lab / Diagnostic Study Results
12/21/23 06:41
12/21/23 06:41
Abs Immat Gran (auto) 0.0 10^3/uL (0-0.05) 12/21/23 06:41
Absolute Neuts (auto) 2.8 10^3/uL (1.4-6.5) 12/21/23 06:41
Absolute Lymphs (auto) 2.9 10^3/uL (1.2-3.4) 12/21/23 06:41
Absolute Monos (auto) 0.4 10^3/uL (0.1-0.6) 12/21/23 06:41
Absolute Basos (auto) 0.0 10^3/uL (0-0.2) 12/21/23 06:41
Immature Gran % 0.3 % (0-0.5) 12/21/23 06:41
Neutrophils % 43.3 % (42.2-75.2) 12/21/23 06:41
Lymphocytes % 45.0 % (20.5-51.1) 12/21/23 06:41
Monocytes % 6.3 % (1.7-9.3) 12/21/23 06:41
Eosinophils % 4.5 % (0-6) 12/21/23 06:41
Basophils % 0.6 % (0-2) 12/21/23 06:41
Ur Squamous Epith Cells 0-2 /LPF (Few) 12/18/23 22:49
Microbiology Results
Micro:
12/18/23 22:49 Urine Culture - Final
Urine Enterococcus faecium - VRE
Pseudomonas aeruginosa
12/19/23 05:32 MRSA Screen - Final
Nose No Methicillin Resistant Staphylococcus aureus isolated.
12/19/23 CTa/p: ACUTE BILATERAL LOWER LOBE PULMONARY ARTERIAL EMBOLIC DISEASE. Mild to moderate right hydronephrosis with a right ureteral stent in normal position. Mild right periureteral inflammation which could be infectious or inflammatory in
etiology. 6.7 mm nonobstructing right intrarenal calculus.
12/19/[address]: SEVERE ACUTE BILATERAL PULMONARY ARTERIAL EMBOLIC DISEASE with suggestion of mild right heart strain.
Assessment / Plan
# Symptomatic complicated UTI
-Recent obstructive uropathy s/p stent placement at [place]' last week
-Ucx: 100K CFU VRE (sensitive to linezolid and gent only), 50K CFU Pseudomonas
- Start gentamicin IV. Follow for nephrotoxicicy/ototoxicity.
(Avoiding linezolid due to drug interaction with sertraline and remeron)
- Continue cefepime (d2) for now.
- DC ampicillin.
-Contact isolation
# Acute Large PE with cardiac strain
Care Review
Plan reviewed with: Other (Pharmacist Getachew)
--- NOTE | 2023-12-21 15:48 | PHA.KIN.INIT ---
Assessment / Plan
- Assessment
Renal Function: Unknown baseline
- Plan
Dosing Weight: 74 kg (adjusted body weight)
Initiate Gentamicin 400mg IV Q24H, which is estimated to provide the following using population-based PK:
Vd 22.1 L
ke 0.159
half-life 4.4 H
Peak 18.5
Trough < 0.5
Give first dose now then Q24H from 12/21 1000.
Consider levels in next few days
Thank you for the consult.
Initial Pharmacokinetics Note
- -
Patient Age: 83
Patient Sex: Female
Antibiotic: Gentamicin
Antibiotic Day #: 1
Indication: Genito-Urinary Tract
Requesting Provider: Dr. Lucas
Pertinent Antimicrobial Allergies:
no pertinent antibiotic allergies
Height / Weight:
Height 5 ft 1 in
Actual Weight 112.746 kg
IBW in k.8
Adjusted BW in k.8
Pertinent Past Medical History: BMI ~47, renal stone s/p uretal stent
- Vital Signs / Lab results
Temp Pulse Resp BP Pulse Ox
98.1 F 64 12 140/76 93
12/21/23 11:38 12/21/23 11:38 12/21/23 11:38 12/21/23 11:38 12/21/23 11:38
Lab Results - Hematology
12/18/23 12/19/23 12/19/23
20:01 06:15 06:15
WBC 8.8 Cancelled 7.4
12/21/23
06:41
WBC 6.4
Lab Results - Chemistry
12/18/23 12/19/23 12/21/23
20:01 06:15 06:41
BUN 13 12 14
Creatinine 1.1 H 0.9 1.0
Albumin 4.1
Lab Results - Urine
12/18/23
22:49
Urine Nitrite (Reflex) Positive A
Leukocyte Esterase Rfl 2+ A
Urine WBC (Reflex) 16-20 A
Ur Squamous Epith Cells 0-2
Urine Bacteria (Reflex) Few A
Microbiology Results
12/18/23 22:49 Urine Culture - Final
Urine Enterococcus faecium - VRE
Pseudomonas aeruginosa
12/19/23 05:32 MRSA Screen - Final
Nose No Methicillin Resistant Staphylococcus aureus isolated.
Concomitant Antimicrobials: cefepime
--- NOTE | 2023-12-21 16:06 | PTCARENOTE ---
Reported off to receiving nurse. No questions indicated at this time.
--- NOTE | 2023-12-21 16:17 | W.PN.PUL3 ---
Today's Communication / Plan
-
AC
Check RLE duplex US
Transition to NOAC tomorrow assuming it is affordable
Maintain SpO2>90%
Assessment
-
83-year-old woman who recently was discharged from [facility] after developing obstructive uropathy, status post stent placement, found to have kidney stone. Back to the hospital not feeling well. Evaluation including CT chest abdomen
pelvis. Discovered to have bibasilar pulmonary embolism.
Acute respiratory insufficiency- on 2 L/min of oxygen.
Acute submassive pulmonary embolism- likely provoked due to recent hospital stay
CTA chest: Reviewed there are central pulmonary arterial filling defects in the right lower lobe pulmonary artery and in the segmental pulmonary arteries of both lower lobes consistent with acute bilateral pulmonary arterial embolic disease.
There is no pericardial or pleural effusion. There is a mild amount of subpleural subsegmental atelectasis and scarring in the basilar segments of both lower lobes and in the lingula.
Recent obstructive kidney stone [facility]: Status post stent.
Conditions present prior admission:
GERD
Kidney stones status post double-J stents [facility] 11/2023
Dementia
neuropathy
Morbid obesity
History of asthma
Left foot fracture: Orthopedic boot in place
Lower extremity Dopplers negative for DVT
Assessment and plan:
Provoked pulmonary embolism.
Hemodynamically stable, not tachycardic.
Minimal oxygen requirements.
Left lower extremity Doppler without DVT and normal RV size and systolic function on TTE from 12/19/2023
Check right lower extremity Doppler to r/o DVT
Continue anticoagulation, okay to transition to oral anticoagulation in the next 24 hours if she remains stable.
Follow PTT while on heparin gtt.
Would recommend 3 months of anticoagulation as long as the patient is mobile at that time.
Outpatient hematology consultation recommended as she does carry risk factors for continued provoked PE given her morbid obesity and suspected sedentary lifestyle
-
Incentive spirometry
Wean down oxygen as able. Maintain pulse ox above 90%.
-
Antibiotics for possible UTI.
Recent double-J stents placement.
-
Outpatient pulmonary follow-up.
Total time spent today was 35 minutes for this encounter. Time includes reviewing laboratory test/imaging results, reviewing pertinent medical records, obtaining and reviewing medical history, performing an appropriate exam, ordering medications,
tests and procedures. Time also includes documentation of this encounter, coordinating patient care and communicating with other healthcare professionals. Total time does not include separately billed tests performed on this date of service.
Subjective Data
-
Date of Service:
Date of Service: December 21, 2023
Chief Complaint: Pulmonary Follow Up
Subjective:
Patient seen today. Remains on heparin drip. On 2 L/min nasal cannula breathing comfortably. No acute events reported overnight. She is eager to go home. Denies chest pain, headache, fevers or chills.
Review of Systems
General: Other (Negative unless mentioned above)
Objective Data
Data Reviewed
Vital Signs / I&O / Oxygen:
Vital Signs
Temp Pulse Resp BP Pulse Ox
98.1 F 64 12 140/76 93
12/21/23 11:38 12/21/23 11:38 12/21/23 11:38 12/21/23 11:38 12/21/23 11:38
Intake and Output
12/20/23 12/21/23 12/22/23
06:59 06:59 06:59
Intake Total 600 / 600 810 / 810
Balance 600 / 600 810 / 810
SaO2 93
Nasal Cannula flow liters per 2
minute
Physical Exam
General: Respiratory Distress (negative), Comfortable and Other (Morbidly obese)
HEENT: Normocephalic and Anicteric
Cardiovascular: S1-S2 and Peripheral Edema (negative)
Respiratory: Wheeze (negative), Crackles (negative), Rhonchi (negative) and Non-Labored Respirations
GI: Soft, Non Tender, Normal Bowel Sounds and Other (Abdominal obesity)
Neurology: Awake and Alert
Skin: Warm, Dry and Cyanosis (negative)
Labs/Micro/Reports
Lab Data
12/21/23 06:41
12/21/23 06:41
Laboratory Results
12/20/23 12/20/23 12/20/23
16:00 17:21 23:16
APTT Cancelled 103.2 H 116.0 H
12/21/23 12/21/23
06:41 13:40
APTT 93.1 H 90.7 H
Microbiology
12/18/23 22:49 Urine Urine Culture - Final
Enterococcus faecium - VRE
Pseudomonas aeruginosa
12/19/23 05:32 Nose MRSA Screen - Final
No Methicillin Resistant Staphylococcus aureus isolated.
[2023-12-21] MEDS: GENTAMICIN 60 MG IV (16:29)
[2023-12-21 16:40] VITALS: BP 111/63
[2023-12-21 19:25] VITALS: BP 119/89
[2023-12-21 23:25] VITALS: BP 136/85
[2023-12-22] VITALS (7 sets, daily range): BP systolic 105–143; BP diastolic 61–78; PULSE 61; O2SAT 94; BMI 47.0
[2023-12-22] MEDS: NEURONTIN 300 MG PO ×3 (00:08→20:03)
[2023-12-22] MEDS: FIBERCON 625 MG PO (00:08)
[2023-12-22] MEDS: NAMENDA 10 MG PO ×3 (00:08→20:03)
[2023-12-22] MEDS: REMERON 7.5 MG PO ×2 (00:08→20:03)
[2023-12-22] MEDS: ARICEPT 10 MG PO ×2 (00:09→20:03)
[2023-12-22] MEDS: ZINC OXIDE OINTMENT 1 APPLIC TOPICAL ×3 (00:09→20:04)
[2023-12-22] MEDS: DEBROX EAR DROPS 1 DROP BOTH EARS ×2 (00:09→20:02)
[2023-12-22] MEDS: DESENEX/MITRAZOL/ZEASORB 1 APPLIC TOPICAL ×3 (00:10→20:04)
[2023-12-22] MEDS: HEPARIN 25000 UNITS/250 ML IV (00:12)
[2023-12-22] MEDS: MAXIPIME 2000 MG IV ×3 (02:33→17:46)
[2023-12-22] MEDS: STERILE WATER FOR INJECTION 10 ML IV ×3 (02:34→17:46)
[2023-12-22 08:03] LABS: % Basophils 0.8 % (0-2); % Eosinophils 6.4 % (0-6); % Immature Granulocytes 0.3 % (0-0.5); % Lymphocytes 34.9 % (20.5-51.1); % Monocytes 5.9 % (1.7-9.3); % Neutrophils 51.7 % (42.2-75.2); Absolute Basophils 0.1 10^3/uL (0-0.2); Absolute Eosinophils 0.4 10^3/uL (0-0.7); Absolute Lymphocytes 2.2 10^3/uL (1.2-3.4); Absolute Monocytes 0.4 10^3/uL (0.1-0.6); Absolute Neutrophils 3.2 10^3/uL (1.4-6.5); Hematocrit 39.6 % (37.0-47.0); Hemoglobin 13.6 g/dL (12.0-16.0); Mean Corp Hgb Conc. 34.3 g/dL (33.0-37.0); Mean Corpuscular Hgb 32.1 pg (27.0-31.0); Mean Corpuscular Volume 93.4 fL (81.0-99.0); Mean Platelet Volume 9.9 fL (7.4-10.4); Nucleated Red Blood Cells % 0 %; Platelet Count 265 10^3/uL (130-400); Red Blood Cell Count 4.24 10^6/uL (4.20-5.40); Red Cell Dist. Width 13.7 % (11.5-14.5); White Blood Cell Count 6.2 10^3/uL (4.8-10.8)
[2023-12-22 08:15] LABS: APTT 76.5 Sec (23.4-35.0)
[2023-12-22 09:24] LABS: Blood Urea Nitrogen 13 mg/dl (7-17); Calcium 8.8 mg/dl (8.4-10.2); Carbon Dioxide 23 mmol/L (22-30); Chloride 109 mmol/L (98-107); Estimated Creatinine Clearance 55 ml/min; Glucose 100 mg/dl (70-99); Potassium 3.7 mmol/L (3.5-5.1); Sodium 137 mmol/L (135-145); eGFR > 60.00
[2023-12-22] MEDS: FLOMAX 0.400000000000000022 MG PO (09:30)
[2023-12-22] MEDS: VITAMIN B-12 100 MCG PO (09:30)
[2023-12-22] MEDS: THERAGRAN 1 TABLET PO (09:30)
[2023-12-22] MEDS: ZOLOFT 50 MG PO (09:30)
[2023-12-22] MEDS: PROTONIX 40 MG PO ×2 (09:30→17:45)
[2023-12-22] MEDS: MAGNESIUM OXIDE 500 MG PO ×2 (09:30→17:46)
[2023-12-22] MEDS: OSCAL 500 + D 500 MG PO ×2 (09:30→17:45)
[2023-12-22] MEDS: CLARITIN 10 MG PO (09:30)
[2023-12-22] MEDS: VISBIOME 1 CAP PO (09:30)
[2023-12-22] MEDS: ASPIR LOW (ENTERIC COATED) 81 MG PO (09:30)
[2023-12-22] MEDS: DEBROX EAR DROPS 5 DROP BOTH EARS (09:30)
--- NOTE | 2023-12-22 11:03 | CM ---
CM reviewed pt with Dr Hong- no set ADC at this time
May need IV abx on dc- awaiting ID final tx plan
Per request, call with dtr and Darius donovan
Update to Dr Hong
PT/OT following- SNF recommendations right now as pt a 1 person assist
Once medical plan determined, CM will coordinate dc planning
Dtr aware pt may need SNF level of care based on dc medical needs
If SNF, pt will require [facility] auth
Discharge Disposition- return to [facility] vs SNF, watch ID tx plan
[2023-12-22] MEDS: FIBERCON PO ×2 (11:28→20:03)
[2023-12-22] MEDS: HYDROPHOR 1 APPLIC TOPICAL (11:29)
[2023-12-22] MEDS: GENTAMICIN 60 MG IV (11:33)
--- NOTE | 2023-12-22 13:48 | W.PN.ID1 ---
Date of Service
Date of Service: December 22, 2023
Today's Communication
Continue IV gentamicin and cefepime.
At time of discharge, IF able to hold sertraline and remeron, transition to Linezolid 600mg po bid (through 12/27/23) and cipro 500mg po bid (through 12/26/23)
Assessment / Plan
# Symptomatic complicated UTI
-Recent obstructive uropathy s/p stent placement at [place] last week
-Ucx: 100K CFU VRE (sensitive to linezolid and gent only), 50K CFU Pseudomonas
- Continue gentamicin IV (d2 of 7) . Follow for nephrotoxicity/ototoxicity.
(Avoiding linezolid due to drug interaction with sertraline and remeron)
- Continue cefepime (d3 of 7)
- At time of discharge, IF able to hold sertraline and remeron, transition to Linezolid 600mg po bid (through 12/27/23) and cipro 500mg po bid (through 12/26/23)
# Acute Large PE
#Additional Past Medical History:
Dementia
Asthma
nephrolithiasis
Recent obstructive uropathy s/p right ureter stent
Neuropathy
Sciatica
Mood disorder
Recurrent UTI
Class III obesity BMI 47
left foot fracture
h/o obstipation/perforated bowel s/p repair
B TKA
Chief Complaint
-: UTI
Subjective / Review of Systems
Right pelvic pain better today. No ringing in the ears.
Vital Signs / Physical Exam
Vital Signs
Vital Signs
Temp Pulse Resp BP Pulse Ox
97.5 F 79 16 105/77 95
12/22/23 13:00 12/22/23 08:00 12/22/23 13:00 12/22/23 08:00 12/22/23 08:00
Physical Exam
Constitutional: No Acute Distress and Comfortable
Cardiovascular: Regular Rate and S1/S2
Gastrointestinal: Tender (right lower abdomen decreased tenderness)
Neurological: Awake and Alert
Objective Data
Lab Data
Lab Results
12/22/23 07:11
12/22/23 07:11
APTT 76.5 Sec (23.4-35.0) H 12/22/23 07:11
Estimated Creat Clear 55 ml/min 12/22/23 07:11
Total Bilirubin 0.6 mg/dl (0.2-1.3) 12/18/23 20:01
AST 38 U/L (14-36) H 12/18/23 20:01
ALT 22 U/L (0-35) 12/18/23 20:01
Alkaline Phosphatase 89 U/L (38-126) 12/18/23 20:01
Most recent labs reviewed.
Micro Results:
12/18/23 22:49 Urine Culture - Final
Urine Enterococcus faecium - VRE
Pseudomonas aeruginosa
12/19/23 05:32 MRSA Screen - Final
Nose No Methicillin Resistant Staphylococcus aureus isolated.
12/19/23 CTa/p: ACUTE BILATERAL LOWER LOBE PULMONARY ARTERIAL EMBOLIC DISEASE. Mild to moderate right hydronephrosis with a right ureteral stent in normal position. Mild right periureteral inflammation which could be infectious or inflammatory in
etiology. 6.7 mm nonobstructing right intrarenal calculus.
12/19/[address]: SEVERE ACUTE BILATERAL PULMONARY ARTERIAL EMBOLIC DISEASE with suggestion of mild right heart strain.
--- NOTE | 2023-12-22 13:48 | W.PN.HOSP.TC ---
Today's Communication/Plan
-
transition to Eliquis
continue Gentamycin
Assessment / Plan
Assessment / Plan
#Acute bilateral pulmonary embolism with mild right heart strain
With recent hospitalization ? Provoked due to decreased mobility
Started patient on heparin infusion and will transition to Eliquis
Right lower extremity Doppler No sonographic evidence for right lower extremity deep venous thrombosis.
Left LE: No sonographic evidence for left lower extremity deep venous thrombosis.
ECHO limited study as patient was argumentative. EF 55 to 60%. Diastolic function indeterminate. Right heart pressures could not be determined. Normal right ventricular size. Normal right ventricular systolic function.
appreciate input from pulmonary
#Left foot fracture with Ortho boot
Venous Doppler negative for DVT
Per daughter patient is able to ambulate with a walker and improved
#Recent obstructive renal stone status post ureteral stent placement at [place] by Dr. Gill
# Polymicrobial urinary tract infection with VRE Enterococcus and Pseudomonas
Culture data noted with clancy resistance to VRE and only susceptible to gentamicin and oral linezolid
Continue with cefepime. Gentamycin 400 mg daily has been ordered
CT abdomen with stent: 1. ACUTE BILATERAL LOWER LOBE PULMONARY ARTERIAL EMBOLIC DISEASE.
2. Mild to moderate right hydronephrosis with a right ureteral stent in normal position. Mild right periureteral inflammation which could be infectious or inflammatory in etiology. 6.7 mm nonobstructing right intrarenal calculus.
3. Multiple small nonobstructing left intrarenal calculi.
4. Mild to moderate chronic bilateral renal disease.
5. Moderate diffuse hepatic steatosis.
6. Severe diffuse pancreatic lipomatosis.
7. Severe colonic diverticulosis.
8. Previous sigmoidectomy and cholecystectomy.
Records requested.
appreciate ID input
#Dementia
Continue with memantine and donepezil
Unclear if with behavioral disturbances
#Mood disorder
Continue with sertraline and Remeron
#GERD
Continue with PPI
Neuropathy
History of sciatica
Cont with gabapentin
PT/OT ordered
DVT ppx-hep gtt
d/w with daughter Holley over the phone in details on daily basis, many questions and concerns 20 minutes in extensive review. update 12/21
total time >50 minutes
Anticipated Discharge: > 48 hours
Subjective/Interval History
-
Date of Service: December 22, 2023
Poor appetite
Objective Data
-
Labs:
Laboratory Results
12/22/23
07:11
WBC 6.2
Hgb 13.6
Hct 39.6
Plt Count 265
APTT 76.5 H
Sodium 137
Potassium 3.7
Chloride 109 H
Carbon Dioxide 23
BUN 13
Creatinine 0.9
Glucose 100 H
Calcium 8.8
Vital Signs:
Vital Signs
Temp Pulse Resp BP Pulse Ox
97.5 F 79 16 105/77 95
12/22/23 13:00 12/22/23 08:00 12/22/23 13:00 12/22/23 08:00 12/22/23 08:00
I&O
12/21/23 12/22/23 12/23/23
06:59 06:59 06:59
Intake Total 810 / 810 650 / 650 240 / 240
Balance 810 / 810 650 / 650 240 / 240
Review of Systems
-
History Source: Coordinated Provider
Constitutional: Denies Fever
Respiratory: Reports No Symptoms
Cardiac: Reports No Symptoms
Abdomen/GI: Reports No Symptoms
Genitourinary: Denies Dysuria
Physical Exam
-
General: Well Developed, Well Nourished, No Apparent Distress and Appears Chronically Ill
HEENT: Normocephalic, Atraumatic and Moist Mucous Membranes
Respiratory: Clear to Auscultation; Negative Wheezes, Rales or Rhonchi
Cardiac: Regular Rhythm and S1/S2
GI: Soft, Nontender and Nondistended
Musculoskeletal: No Clubbing, No Cyanosis and No Edema
Skin: Warm and Dry
Neuro: Awake (somewhat lethargic) and Alert
--- NOTE | 2023-12-22 14:30 | PTCARENOTE ---
[address] Hong regarding Telemetry, recommended to continue to heart monitor, continue to monitor pt closely,
--- NOTE | 2023-12-22 17:14 | W.PN.PUL3 ---
Today's Communication / Plan
-
Transition to oral anticoagulation
Consider polypharmacy with regards to fatigue
Antibiotics per primary service
Follow-up with pulmonary in 3 months regarding anticoagulation for PE
We will sign off. Please call with questions
Assessment
-
83-year-old woman who recently was discharged from [facility] after developing obstructive uropathy, status post stent placement, found to have kidney stone. Back to the hospital not feeling well. Evaluation including CT chest abdomen
pelvis. Discovered to have bibasilar pulmonary embolism.
Acute respiratory insufficiency- on 2 L/min of oxygen.
Acute submassive pulmonary embolism- likely provoked due to recent hospital stay
Recent obstructive kidney stone [facility]: Status post stent.
Conditions present prior admission:
GERD
Kidney stones status post double-J stents [facility] 11/2023
Dementia
neuropathy
Morbid obesity
History of asthma
Left foot fracture: Orthopedic boot in place
Lower extremity Dopplers negative for DVT
Assessment and plan:
At this time, patient appears to be comfortable
Lower extremity Dopplers negative for DVT
Echocardiogram with normal biventricular function, right heart pressures cannot be determined
Moving forward
Continue with treatment for provoked pulmonary embolism
Patient remains on heparin therapy, okay to transition to oral agent. Will defer to primary service
Would recommend 3 months of anticoagulation as long as the patient is mobile at that time, followed by evaluation for discontinuation.
Incentive spirometry
Wean down oxygen as able. Maintain pulse ox above 90%.
Continue oxygen therapy as needed. Presently patient is off oxygen
Antibiotics for possible UTI.
Recent double-J stents placement.
Patient with significant fatigue
Normal serum bicarbonate
Patient is on Aricept, Neurontin, Namenda, Remeron, Zoloft
Consider polypharmacy. Defer to primary service
Once transition to oral anticoagulation, we will sign off. Please call with questions
Subjective Data
-
Date of Service:
Date of Service: December 22, 2023
Chief Complaint: Pulmonary Follow Up
Subjective:
Patient primary complaint is fatigue. Denies chest pain. Denies significant cough, nausea, abdominal pain. Shortness of breath has improved
Objective Data
Data Reviewed
Vital Signs / I&O / Oxygen:
Vital Signs
Temp Pulse Resp BP Pulse Ox
97.5 F 79 16 105/77 95
12/22/23 13:00 12/22/23 08:00 12/22/23 13:00 12/22/23 08:00 12/22/23 08:00
Intake and Output
12/21/23 12/22/23 12/23/23
06:59 06:59 06:59
Intake Total 810 / 810 650 / 650 240 / 240
Balance 810 / 810 650 / 650 240 / 240
SaO2 95
Nasal Cannula flow liters per 2
minute
Physical Exam
General: Comfortable and Other (Morbidly obese)
HEENT: Normocephalic and Anicteric
Cardiovascular: S1-S2, Regular Rhythm, Murmur (n) and Peripheral Edema (negative)
Respiratory: Wheeze (negative), Crackles (negative), Rhonchi (negative), Non-Labored Respirations and Stridor (n)
GI: Soft, Non Distended (Morbidly obese), Non Tender and Normal Bowel Sounds
Neurology: Awake, Alert and No Motor Deficits (Generally weak)
Skin: Warm, Dry and Cyanosis (negative)
Labs/Micro/Reports
Lab Data
12/22/23 07:11
12/22/23 07:11
Laboratory Results
12/22/23
07:11
APTT 76.5 H
Microbiology
12/18/23 22:49 Urine Urine Culture - Final
Enterococcus faecium - VRE
Pseudomonas aeruginosa
12/19/23 05:32 Nose MRSA Screen - Final
No Methicillin Resistant Staphylococcus aureus isolated.
--- NOTE | 2023-12-22 20:00 | PTCARENOTE ---
Heparin gtt turned off at 1999 by this RN and first dose of Eliquis 10mg provided to patient.
[2023-12-22] MEDS: ELIQUIS 10 MG PO (20:03)
[2023-12-23] MEDS: MAXIPIME 2000 MG IV ×3 (02:47→16:52)
[2023-12-23] MEDS: STERILE WATER FOR INJECTION 10 ML IV ×3 (02:47→16:52)
[2023-12-23 03:23] VITALS: BP 118/62
[2023-12-23] MEDS: DESENEX/MITRAZOL/ZEASORB 1 APPLIC TOPICAL ×2 (08:11→19:54)
[2023-12-23] MEDS: DEBROX EAR DROPS 5 DROP BOTH EARS (08:11)
[2023-12-23] MEDS: ZINC OXIDE OINTMENT 1 APPLIC TOPICAL ×2 (08:12→20:08)
[2023-12-23] MEDS: HYDROPHOR 1 APPLIC TOPICAL (08:12)
[2023-12-23] MEDS: PROTONIX 40 MG PO ×2 (08:13→16:52)
[2023-12-23] MEDS: FIBERCON 625 MG PO (08:13)
[2023-12-23] MEDS: VITAMIN B-12 100 MCG PO (08:13)
[2023-12-23] MEDS: NEURONTIN 300 MG PO ×2 (08:13→19:53)
[2023-12-23] MEDS: MAGNESIUM OXIDE 500 MG PO ×2 (08:13→16:48)
[2023-12-23] MEDS: FLOMAX 0.400000000000000022 MG PO (08:13)
[2023-12-23] MEDS: ELIQUIS 10 MG PO ×2 (08:13→19:53)
[2023-12-23] MEDS: CLARITIN 10 MG PO (08:13)
[2023-12-23] MEDS: ZOLOFT 50 MG PO (08:13)
[2023-12-23] MEDS: VISBIOME 1 CAP PO (08:13)
[2023-12-23] MEDS: ASPIR LOW (ENTERIC COATED) 81 MG PO (08:13)
[2023-12-23] MEDS: NAMENDA 10 MG PO ×2 (08:14→19:53)
[2023-12-23] MEDS: GENTAMICIN 60 MG IV (08:14)
[2023-12-23] MEDS: THERAGRAN 1 TABLET PO (08:14)
[2023-12-23] MEDS: OSCAL 500 + D 500 MG PO ×2 (08:14→16:48)
[2023-12-23 08:40] VITALS: BP 138/81
--- NOTE | 2023-12-23 09:30 | PHA.KIN.UP ---
Addendum entered and electronically signed by Daly Chilel [facility] 12/23/23 16:18:
BUN & SCR ordered per protocol
Addendum entered and electronically signed by Daly Chilel [facility] 12/23/23 12:32:
Laboratory Tests
12/23/23
10:38
Gentamicin Peak > 20.0 H*
Goal peak for extended interval dosing is 18-22
Exact value of level unknown - will obtain additional random level at 1800 to give time for peak to clear and assess with a second random level with AM labs to perform PK calculations
Original Note:
Assessment / Plan
- Assessment
Renal Function: No New Labs Today
WBC's are: WNL
In the past 24 hrs, patient has been: Afebrile
- Plan: Continue Present Regimen
Continue: Gent 400mg Q24H
Peak - obtain now
Trough - obtain with AM labs tomorrow
Level will be prior to 1000 dose
Since goal with extended interval dosing is to have low to undetectable levels, will obtain trough a few hours prior to dose being due
Levels drawn after 3rd dose to assess extended interval regimen
- Follow Up
Pharmacy will continue to follow.
FollowUp Pharmacokinetics Note
- -
Patient Age: 83
Patient Sex: Female
Antibiotic: Gentamicin
Antibiotic Day #: 3
Indication: Genito-Urinary Tract
Requesting Provider: Dr. Lucas
Pertinent Antimicrobial Allergies:
no pertinent antibiotic allergies
Height / Weight:
Height 5 ft 1 in
Actual Weight 112.746 kg
IBW in k.8
Adjusted BW in k.8
Pertinent Past Medical History: BMI ~47, renal stone s/p uretal stent
- Vital Signs / Lab Results
Temp Pulse Resp BP Pulse Ox
97.9 F 69 18 138/81 93
12/23/23 08:40 12/23/23 08:40 12/23/23 08:40 12/23/23 08:40 12/23/23 08:40
Lab Results - Hematology
12/21/23 12/22/23
06:41 07:11
WBC 6.4 6.2
Lab Results - Chemistry
12/21/23 12/22/23
06:41 07:11
BUN 14 13
Creatinine 1.0 0.9
Estimated Creat Clear 55
Microbiology Results
12/18/23 22:49 Urine Culture - Final
Urine Enterococcus faecium - VRE
Pseudomonas aeruginosa
Concomitant Antimicrobials:
[2023-12-23 11:30] VITALS: BP 119/71
--- NOTE | 2023-12-23 12:09 | WOUNDNOTE ---
L ANTERIOR LOWER LEG
--- NOTE | 2023-12-23 12:10 | WOUNDNOTE ---
BACK AND SACRUM
--- NOTE | 2023-12-23 12:11 | WOUNDNOTE ---
WON RN note: Patient admitted with Acute UTI and Acute Pulmonary Embolism.
See H&P for complete history.
PMH: Stent with kidney stone, Obesity, Dementia, UTI, sepsis, Ostomy 2018,
Wound Location and type/assessment: Patient admitted with: Tiny L leg abrasion and dry intact scab on abdomen. Asked to see patient by nursing for swelling and pain to labia. Nurse Swetha assisted in turning patient and with skin care to perineum,
patient incontinent of blood tinged urine. No open wounds on Labia, mild swelling and MASD, fungal powder in use. Patient denies any pain to labia at this time. Back with rash, patient states is mildly itchy. Suspect rash related to moisture. Using
oxygen via NC, ear rims intact. Sacrum and heels are intact.
Appetite: Good.
Pressure redistribution devices in place: On Accumax, turning schedule in effect. Pillow under calves.
Plan: Continue to use fungal powder to Labia and skin folds. Dressing changed on L leg with silicone foam. Calazime applied to buttocks/sacrum by nurse after skin care. Asked nurse to change NC tubing to silicone tubing.
Updated care plan and will sign off unless needed.
[2023-12-23 12:17] LABS: Gentamicin Peak > 20.0 ug/ml
[2023-12-23 15:02] VITALS: BP 121/65; PULSE 75; O2SAT 93
[2023-12-23 15:35] VITALS: BP 99/59
--- NOTE | 2023-12-23 15:52 | W.PN.ID1 ---
Addendum entered and electronically signed by Shyla Lucas MD 12/23/23 17:15:
Correction: Continue IV gentamicin (not linezolid) and cefepime for now.
Spoke to Dr. Hong who opted for her to complete the IV gentamicin (d3 of 7) and cefepime (d4 of 7) inpatient then dc to SNF.
Due to PE, stone manipulation and stent removal delayed for 3 months. Prior to urological procedure, should check Ucx and treat bacteruria.
Original Note:
Date of Service
Date of Service: December 23, 2023
Today's Communication
Continue linezolid and cefepime for now.
At time of discharge, IF able to hold sertraline and remeron, transition to Linezolid 600mg po bid (through 12/27/23) and cipro 500mg po bid (through 12/26/23)
Assessment / Plan
# Symptomatic complicated UTI
-Recent obstructive uropathy s/p stent placement at [place] last week
-Ucx: 100K CFU VRE (sensitive to linezolid and gent only), 50K CFU Pseudomonas
- Continue gentamicin IV (d3 of 7) . Monitor for nephrotoxicity/ototoxicity.
appreciate pharmacy for following gentamicin trough and peak. pt currently on the correct dose.
(Avoiding linezolid for now due to drug interaction with sertraline and remeron)
- Continue cefepime (d4 of 7)
- At time of discharge, IF able to hold sertraline and remeron, transition to Linezolid 600mg po bid (through 12/27/23) and cipro 500mg po bid (through 12/26/23)
# Acute Large PE
#Additional Past Medical History:
Dementia
Asthma
nephrolithiasis
Recent obstructive uropathy s/p right ureter stent
Neuropathy
Sciatica
Mood disorder
Recurrent UTI
Class III obesity BMI 47
left foot fracture
h/o obstipation/perforated bowel s/p repair
B TKA
Chief Complaint
-: UTI
Subjective / Review of Systems
Sitting up in chair. Feels better.
No change in hearing.
Vital Signs / Physical Exam
Vital Signs
Vital Signs
Temp Pulse Resp BP Pulse Ox
97.4 F 71 18 119/71 94
12/23/23 11:30 12/23/23 11:30 12/23/23 11:30 12/23/23 11:30 12/23/23 11:30
Physical Exam
Constitutional: No Acute Distress
Gastrointestinal: Soft, Non Tender and Non Distended
Genito-Urinary: Negative CVA Tenderness
Objective Data
Lab Data
Lab Results
12/22/23 07:11
12/22/23 07:11
APTT 76.5 Sec (23.4-35.0) H 12/22/23 07:11
Estimated Creat Clear 55 ml/min 12/22/23 07:11
Total Bilirubin 0.6 mg/dl (0.2-1.3) 12/18/23 20:01
AST 38 U/L (14-36) H 12/18/23 20:01
ALT 22 U/L (0-35) 12/18/23 20:01
Alkaline Phosphatase 89 U/L (38-126) 12/18/23 20:01
Most recent labs reviewed.
Micro Results:
12/18/23 22:49 Urine Culture - Final
Urine Enterococcus faecium - VRE
Pseudomonas aeruginosa
12/19/23 05:32 MRSA Screen - Final
Nose No Methicillin Resistant Staphylococcus aureus isolated.
12/19/23 CTa/p: ACUTE BILATERAL LOWER LOBE PULMONARY ARTERIAL EMBOLIC DISEASE. Mild to moderate right hydronephrosis with a right ureteral stent in normal position. Mild right periureteral inflammation which could be infectious or inflammatory in
etiology. 6.7 mm nonobstructing right intrarenal calculus.
12/19/[address]: SEVERE ACUTE BILATERAL PULMONARY ARTERIAL EMBOLIC DISEASE with suggestion of mild right heart strain.
--- NOTE | 2023-12-23 16:50 | W.PN.HOSP.TC ---
Today's Communication/Plan
-
Continue Gent and Cefepime for now. Timing of holding Eliquis complicated and would need clearance to stop by [facility] with lithotripsy and stent extraction to follow
Assessment / Plan
Assessment / Plan
#Acute bilateral pulmonary embolism with mild right heart strain
With recent hospitalization ? Provoked due to decreased mobility
Started patient on heparin infusion and was transitioned to Eliquis
Right lower extremity Doppler No sonographic evidence for right lower extremity deep venous thrombosis.
Left LE: No sonographic evidence for left lower extremity deep venous thrombosis.
ECHO limited study as patient was argumentative. EF 55 to 60%. Diastolic function indeterminate. Right heart pressures could not be determined. Normal right ventricular size. Normal right ventricular systolic function.
appreciate input from pulmonary
#Left foot fracture with Ortho boot
Venous Doppler negative for DVT
Per daughter patient is able to ambulate with a walker and improved
#Recent obstructive renal stone status post ureteral stent placement at [place] by Dr. Gill
# Polymicrobial urinary tract infection with VRE Enterococcus and Pseudomonas
Culture data noted with clancy resistance to VRE and only susceptible to gentamicin and oral linezolid
Continue with cefepime. Gentamycin 400 mg daily has been ordered
CT abdomen with stent: 1. ACUTE BILATERAL LOWER LOBE PULMONARY ARTERIAL EMBOLIC DISEASE.
2. Mild to moderate right hydronephrosis with a right ureteral stent in normal position. Mild right periureteral inflammation which could be infectious or inflammatory in etiology. 6.7 mm nonobstructing right intrarenal calculus.
3. Multiple small nonobstructing left intrarenal calculi.
4. Mild to moderate chronic bilateral renal disease.
5. Moderate diffuse hepatic steatosis.
6. Severe diffuse pancreatic lipomatosis.
7. Severe colonic diverticulosis.
8. Previous sigmoidectomy and cholecystectomy.
Records requested.
appreciate ID input
Recommendation is for Gent now with transition to Linezolid 600 mg bid through 12/26 vs complete course of abx here with Gent
Discussed with Dr. Sy, feels very strongly that pt should follow up with usual Urologist ([facility]) post dc for stent and stone removal. Timing will be complicated, as should be treated for PE prior to stopping OAC in order to remove
stent/stone
#Dementia
Continue with memantine and donepezil
Unclear if with behavioral disturbances
#Mood disorder
Continue with sertraline and Remeron
#GERD
Continue with PPI
Neuropathy
History of sciatica
Cont with gabapentin
PT/OT ordered
DVT ppx-hep gtt
d/w with daughter Holley over the phone in details, many questions and concerns 20 minutes in extensive review. update 12/21
Anticipated Discharge: > 48 hours
Subjective/Interval History
-
Date of Service: December 23, 2023
Generally appears comfortable
Objective Data
-
Vital Signs:
Vital Signs
Temp Pulse Resp BP Pulse Ox
98.3 F 77 20 99/59 96
12/23/23 15:35 12/23/23 15:35 12/23/23 15:35 12/23/23 15:35 12/23/23 15:35
I&O
12/22/23 12/23/23 12/24/23
06:59 06:59 06:59
Intake Total 650 / 650 420 / 420 120 / 120
Balance 650 / 650 420 / 420 120 / 120
Review of Systems
-
History Source: Coordinated Provider
Constitutional: Denies Fever
Respiratory: Reports No Symptoms
Cardiac: Reports No Symptoms
Abdomen/GI: Reports No Symptoms
Genitourinary: Denies Dysuria
Physical Exam
-
General: Well Developed, Well Nourished, No Apparent Distress and Appears Chronically Ill
HEENT: Normocephalic, Atraumatic and Moist Mucous Membranes
Respiratory: Clear to Auscultation; Negative Wheezes, Rales or Rhonchi
Cardiac: Regular Rhythm and S1/S2
GI: Soft, Nontender and Nondistended
Musculoskeletal: No Clubbing, No Cyanosis and No Edema
Skin: Warm and Dry
Neuro: Awake (somewhat lethargic, but better than yesterday) and Alert
[2023-12-23 19:00] LABS: Gentamicin Random 13.8 ug/ml
[2023-12-23] MEDS: ARICEPT 10 MG PO (19:53)
[2023-12-23] MEDS: REMERON 7.5 MG PO (19:53)
[2023-12-23] MEDS: FIBERCON PO (19:54)
[2023-12-23] MEDS: DEBROX EAR DROPS 1 DROP BOTH EARS (19:54)
[2023-12-23 23:56] VITALS: BP 109/61
[2023-12-24] MEDS: STERILE WATER FOR INJECTION 10 ML IV ×3 (02:54→23:07)
[2023-12-24] MEDS: MAXIPIME 2000 MG IV ×3 (02:54→23:07)
--- NOTE | 2023-12-24 06:02 | PTCARENOTE ---
Pt with a large amount of blood-tinged urine during this shift and throughout the nights of 12/20 and 12/21. Pt was on a heparin drip and then transitioned to Eliquis 10mg BID on 12/21. [employer] Jodie Ramirez notified, order placed for CBC to be
drawn this AM.
[2023-12-24 06:18] LABS: Blood Urea Nitrogen 16 mg/dl (7-17); Estimated Creatinine Clearance 45 ml/min
[2023-12-24 06:27] LABS: Gentamicin Random 5.1 ug/ml
[2023-12-24 07:30] VITALS: BP 113/59
[2023-12-24 07:39] LABS: Hematocrit 39.4 % (37.0-47.0); Hemoglobin 13.2 g/dL (12.0-16.0); Mean Corp Hgb Conc. 33.5 g/dL (33.0-37.0); Mean Corpuscular Hgb 31.4 pg (27.0-31.0); Mean Corpuscular Volume 93.8 fL (81.0-99.0); Mean Platelet Volume 10.1 fL (7.4-10.4); Platelet Count 263 10^3/uL (130-400); Red Cell Dist. Width 13.7 % (11.5-14.5); White Blood Cell Count 7.3 10^3/uL (4.8-10.8)
--- NOTE | 2023-12-24 08:03 | PHA.KIN.UP ---
Addendum entered and electronically signed by Daly Chilel [facility] 12/24/23 16:12:
BUN & SCR ordered per protocol
Original Note:
Assessment / Plan
- Assessment
Renal Function: SCR Increasing
In the past 24 hrs, patient has been: Afebrile
Level Comments: cefepime
Laboratory Tests
12/23/23 12/24/23
18:15 05:39
Random Gentamicin 13.8 5.1
Regimen provided the following patient-specific PK
ke = 0.0873
half-life = 7.94 H
Extrapolated Cmax = 30.3 mcg/ml
Extrapolated Cmin = 4.1 mcg/ml
Vd = 12.6 L (~0.11 L/kg)
- Plan: Adjust Regimen Based on Level
Dose will be adjusted to: dosing by level to ensure Gent clearing appropriately
Repeat Level due (date): random 12/24 0600
Patient-specific PK predicts Gent 240mg Q48H would provide Cmax 19 and Cmin < 0.5
Will hold off on scheduling further dosing at this point
- Follow Up
Pharmacy will continue to follow.
FollowUp Pharmacokinetics Note
- -
Patient Age: 83
Patient Sex: Female
Antibiotic: Gentamicin
Antibiotic Day #: 4
Indication: Genito-Urinary Tract
Requesting Provider: Dr. Lucas
Pertinent Antimicrobial Allergies:
no pertinent antibiotic allergies
Height / Weight:
Height 5 ft 1 in
Actual Weight 112.746 kg
IBW in k.8
Adjusted BW in k.8
Pertinent Past Medical History: BMI ~47, renal stone s/p uretal stent
- Vital Signs / Lab Results
Temp Pulse Resp BP Pulse Ox
97.8 F 71 18 109/61 95
12/23/23 23:56 12/23/23 23:56 12/23/23 23:56 12/23/23 23:56 12/23/23 23:56
Lab Results - Hematology
12/22/23
07:11
WBC 6.2
Lab Results - Chemistry
12/22/23 12/24/23
07:11 05:39
BUN 13 16
Creatinine 0.9 1.1 H
Estimated Creat Clear 55 45
Concomitant Antimicrobials:
Therapeutic Drug Monitoring
Gentamicin Peak > 20.0 ug/ml H* 12/23/23 10:38
Random Gentamicin 5.1 ug/ml 12/24/23 05:39
[2023-12-24] MEDS: DEBROX EAR DROPS 1 DROP BOTH EARS (10:41)
[2023-12-24] MEDS: DESENEX/MITRAZOL/ZEASORB 1 APPLIC TOPICAL ×2 (10:42→20:17)
[2023-12-24] MEDS: HYDROPHOR 1 APPLIC TOPICAL (10:42)
[2023-12-24] MEDS: ZINC OXIDE OINTMENT 1 APPLIC TOPICAL ×2 (10:44→20:18)
[2023-12-24] MEDS: FLUSH (NSS) 2 FLUSH IV (10:52)
[2023-12-24] MEDS: FIBERCON 625 MG PO ×2 (10:52→20:14)
[2023-12-24] MEDS: VITAMIN B-12 100 MCG PO (10:52)
[2023-12-24] MEDS: ELIQUIS 10 MG PO ×2 (10:53→20:12)
[2023-12-24] MEDS: THERAGRAN 1 TABLET PO (10:53)
[2023-12-24] MEDS: ASPIR LOW (ENTERIC COATED) 81 MG PO (10:53)
[2023-12-24] MEDS: MAGNESIUM OXIDE 500 MG PO ×2 (10:53→17:28)
[2023-12-24] MEDS: NEURONTIN 300 MG PO ×2 (10:54→20:11)
[2023-12-24] MEDS: PROTONIX 40 MG PO ×2 (10:54→17:29)
[2023-12-24] MEDS: FLOMAX 0.400000000000000022 MG PO (10:54)
[2023-12-24] MEDS: OSCAL 500 + D 500 MG PO ×2 (10:54→17:29)
[2023-12-24] MEDS: VISBIOME 1 CAP PO (10:55)
[2023-12-24] MEDS: CLARITIN 10 MG PO (11:05)
[2023-12-24] MEDS: NAMENDA 10 MG PO ×2 (11:05→20:15)
[2023-12-24] MEDS: ZOLOFT 50 MG PO (11:05)
--- NOTE | 2023-12-24 12:21 | W.PN.ID1 ---
Addendum entered and electronically signed by Kim Nuñez MD 12/25/23 13:16:
physical exam was done on day on service december 24, 2023 - inadvertently not documented. Addendum as below
Gen: awake, alert, no acute distress
pulm: clear to auscultation
heart: s1/s2, RRR, no m/g/r
abd: soft, ND, NT, NABS
: no suprapubic tenderness
Skin: no rashes
DLOA: PIV no erythema or tenderness
Addendum entered and electronically signed by Kim Nuñez MD 12/24/23 15:21:
reviewed case in detail with Dr Rossi, offered transfer, he declines, he will follow up patient outpatient; aware of the VRE with limited treatment options
would start to taper sertraline, mirtazapine if feasible
Original Note:
Date of Service
Date of Service: December 24, 2023
Today's Communication
awaiting call back from [facility] urology
continue current antibiotics
Assessment / Plan
# Symptomatic complicated UTI
-Recent obstructive uropathy s/p stent placement at [facility] last week
-Ucx: 100K CFU VRE (sensitive to linezolid and gent only), 50K CFU Pseudomonas
- isolate confirmed resistant to daptomycin
- Continue gentamicin IV (d4 of 7) . Monitor for nephrotoxicity/ototoxicity.
appreciate pharmacy for following gentamicin trough and peak. pt has an effective level at this point
(Avoiding linezolid due to drug interaction with sertraline and remeron)
- explored possibility of oritavancin - discussed with clinical pharmacy ([facility]), outpatient case manager and patients adult daugther, unfortunately limited due to formulary etc;
- QTc acceptable for 441
- Continue cefepime (d5 of 7)
- agree that prior to urologic procedures urine culture should be checked and any noted bacteria treated
# Acute Large PE
#Additional Past Medical History:
Dementia
Asthma
nephrolithiasis
Recent obstructive uropathy s/p right ureter stent
Neuropathy
Sciatica
Mood disorder
Recurrent UTI
Class III obesity BMI 47
left foot fracture
h/o obstipation/perforated bowel s/p repair
B TKA
Chief Complaint
-: UTI
Subjective / Review of Systems
Note Dr hassan's previous addendum - 'Due to PE, stone manipulation and stent removal delayed for 3 months. Prior to urological procedure, should check Ucx and treat bacteruria.'
patients urologist is Dr Saab at [facility] - left message at his office with my cell phone to give him update
lab confirmed isolate is resistant to dapto
afebrile
bp stable
without leukocytosis
cr is uptrending now 1.1 with crcl 45
random gent 5.1
would not abruptly stop the sertraline and remeron
Vital Signs / Physical Exam
Vital Signs
Vital Signs
Temp Pulse Resp BP Pulse Ox
97.6 F 66 17 113/59 96
12/24/23 07:30 12/24/23 07:30 12/24/23 07:30 12/24/23 07:30 12/24/23 07:30
Objective Data
Lab Data
Lab Results
12/24/23 05:48
12/24/23 05:39
APTT 76.5 Sec (23.4-35.0) H 12/22/23 07:11
Estimated Creat Clear 45 ml/min 12/24/23 05:39
Total Bilirubin 0.6 mg/dl (0.2-1.3) 12/18/23 20:01
AST 38 U/L (14-36) H 12/18/23 20:01
ALT 22 U/L (0-35) 12/18/23 20:01
Alkaline Phosphatase 89 U/L (38-126) 12/18/23 20:01
Most recent labs reviewed.
Micro Results:
12/18/23 22:49 Urine Culture - Final
Urine Enterococcus faecium - VRE
Pseudomonas aeruginosa
12/19/23 05:32 MRSA Screen - Final
Nose No Methicillin Resistant Staphylococcus aureus isolated.
12/19/23 CTa/p: ACUTE BILATERAL LOWER LOBE PULMONARY ARTERIAL EMBOLIC DISEASE. Mild to moderate right hydronephrosis with a right ureteral stent in normal position. Mild right periureteral inflammation which could be infectious or inflammatory in
etiology. 6.7 mm nonobstructing right intrarenal calculus.
12/19/[address]: SEVERE ACUTE BILATERAL PULMONARY ARTERIAL EMBOLIC DISEASE with suggestion of mild right heart strain.
Care Review
Plan reviewed with: Physician (Dr Caceres - dispo)
[2023-12-24 13:05] VITALS: BP 110/72
--- NOTE | 2023-12-24 13:29 | CM ---
Discussed case with ID and MD to discuss case.
TC to daughter Holley re skilled rehab facilities.
Daughter would like referrals to [facility], [facility] and [facility] for short term rehab.
Discussed with daughter process for skilled rehab, needing to find a bed and obtain and insurance auth which could take a few days.
Daughter Holley will be in this afternoon to see Mom.
Continue IV anbx per ID.
Plan: skilled rehab when medically stable and auth obtained.
[2023-12-24 15:00] VITALS: BP 104/61
--- NOTE | 2023-12-24 17:10 | W.PN.HOSP.TC ---
Today's Communication/Plan
-
continue IV abx, as per ID
Assessment / Plan
Assessment / Plan
#Acute bilateral pulmonary embolism with mild right heart strain
With recent hospitalization ? Provoked due to decreased mobility
Started patient on heparin infusion and was transitioned to Eliquis
Right lower extremity Doppler No sonographic evidence for right lower extremity deep venous thrombosis.
Left LE: No sonographic evidence for left lower extremity deep venous thrombosis.
ECHO limited study as patient was argumentative. EF 55 to 60%. Diastolic function indeterminate. Right heart pressures could not be determined. Normal right ventricular size. Normal right ventricular systolic function.
appreciate input from pulmonary
Gent level today 5.1
#Left foot fracture with Ortho boot
Venous Doppler negative for DVT
Per daughter patient is able to ambulate with a walker and improved
#Recent obstructive renal stone status post ureteral stent placement at [place] by Dr. Gill
# Polymicrobial urinary tract infection with VRE Enterococcus and Pseudomonas
Culture data noted with clancy resistance to VRE and only susceptible to gentamicin and oral linezolid
Continue with cefepime. Gentamycin 400 mg daily has been ordered
CT abdomen with stent: 1. ACUTE BILATERAL LOWER LOBE PULMONARY ARTERIAL EMBOLIC DISEASE.
2. Mild to moderate right hydronephrosis with a right ureteral stent in normal position. Mild right periureteral inflammation which could be infectious or inflammatory in etiology. 6.7 mm nonobstructing right intrarenal calculus.
3. Multiple small nonobstructing left intrarenal calculi.
4. Mild to moderate chronic bilateral renal disease.
5. Moderate diffuse hepatic steatosis.
6. Severe diffuse pancreatic lipomatosis.
7. Severe colonic diverticulosis.
8. Previous sigmoidectomy and cholecystectomy.
Records requested.
appreciate ID input
Recommendation is for Gent now with transition to Linezolid 600 mg bid through 12/26 vs complete course of abx here with Gent
would complete course of abx here, then dc to SNF with planned follow up of renal stone
Discussed with Dr. Sy, feels very strongly that pt should follow up with usual [facility]rologist ([facility]) post dc for stent and stone removal. Timing will be complicated, as should be treated for PE prior to stopping OAC in order to remove
stent/stone
#Dementia
Continue with memantine and donepezil
Unclear if with behavioral disturbances
#Mood disorder
Continue with sertraline and Remeron
#GERD
Continue with PPI
Neuropathy
History of sciatica
Cont with gabapentin
PT/OT ordered
DVT ppx-hep gtt
d/w with daughter Holley over the phone in details, many questions and concerns 20 minutes in extensive review. update 12/21
Anticipated Discharge: > 48 hours
Subjective/Interval History
-
Date of Service: December 24, 2023
Appears comfortable
Objective Data
-
Labs:
Laboratory Results
12/24/23 12/24/23
05:39 05:48
WBC 7.3
Hgb 13.2
Hct 39.4
Plt Count 263
BUN 16
Creatinine 1.1 H
Vital Signs:
Vital Signs
Temp Pulse Resp BP Pulse Ox
97.8 F 80 17 104/61 93
12/24/23 15:00 12/24/23 15:00 12/24/23 15:00 12/24/23 15:00 12/24/23 15:00
I&O
12/23/23 12/24/23 12/25/23
06:59 06:59 06:59
Intake Total 420 / 420 1240 / 1240
Balance 420 / 420 1240 / 1240
Review of Systems
-
History Source: Coordinated Provider
Constitutional: Denies Fever
Respiratory: Reports No Symptoms
Cardiac: Reports No Symptoms
Abdomen/GI: Reports No Symptoms
Genitourinary: Denies Dysuria
Physical Exam
-
General: Well Developed, Well Nourished, No Apparent Distress and Appears Chronically Ill
HEENT: Normocephalic, Atraumatic and Moist Mucous Membranes
Respiratory: Clear to Auscultation; Negative Wheezes, Rales or Rhonchi
Cardiac: Regular Rhythm and S1/S2
GI: Soft, Nontender and Nondistended
Musculoskeletal: No Clubbing, No Cyanosis and No Edema
Skin: Warm and Dry
Neuro: Awake and Alert; Negative Oriented (more conversant than previous visit, but obvious cognitive impairment)
Psych: Calm
[2023-12-24 17:26] LABS: Glucose - Point of Care 114 mg/dl (70-99)
--- NOTE | 2023-12-24 17:49 | PTCARENOTE ---
Patient with c/o new b/l blurry vision upon awakening that lasted a few minutes. Face and eyes cleansed with water, vital signs and blood sugar stable, no notable neuro deficits- patient remains confused but alert and is now eating dinner. Patient
verbalizes blurriness now resolved. Daughter expressed concern as this being new for patient. Dr. Hong made aware.
[2023-12-24] MEDS: DEBROX EAR DROPS 5 DROP BOTH EARS (20:16)
[2023-12-24] MEDS: REMERON 7.5 MG PO (20:16)
[2023-12-24] MEDS: ARICEPT 10 MG PO (20:16)
[2023-12-24 21:01] VITALS: BP 117/60
[2023-12-24 21:15] LABS: Hematocrit 39.9 % (37.0-47.0); Hemoglobin 13.4 g/dL (12.0-16.0)
[2023-12-24 23:23] VITALS: BP 101/55
--- NOTE | 2023-12-25 04:35 | PTCARENOTE ---
~20:45 one episode of bloody urine in bedside commode. AAXO1. VS: BP 117/60, HR 76, O2 96% on 2.5 L, Temp 98.3, and Resp Rate 16. Pt denies SOB, difficulty breathing, dizziness, lightheadedness, and chest pain. Pt states 'I just want to go to
sleep.' Notified ALDA Hicks. New orders placed. Plan of care ongoing.
~23:25 PCT reports second episode of 'bloody urine in bedside commode after vital signs taken.' Pt denies SOB, dizziness, lightheadedness, difficulty breathing, and chest pain. Pt states again 'I just want to go to sleep again.' Notified ALDA
Hephziba Kurt. No new orders at this time. Plan of care ongoing.
[2023-12-25 07:17] VITALS: BP 126/68
[2023-12-25 07:32] LABS: Gentamicin Random 1.1 ug/ml
[2023-12-25 07:40] LABS: Hematocrit 39.5 % (37.0-47.0); Hemoglobin 13.5 g/dL (12.0-16.0); Mean Corp Hgb Conc. 34.2 g/dL (33.0-37.0); Mean Corpuscular Hgb 31.8 pg (27.0-31.0); Mean Corpuscular Volume 92.9 fL (81.0-99.0); Mean Platelet Volume 9.8 fL (7.4-10.4); Platelet Count 234 10^3/uL (130-400); Red Blood Cell Count 4.25 10^6/uL (4.20-5.40); Red Cell Dist. Width 13.8 % (11.5-14.5); White Blood Cell Count 7.1 10^3/uL (4.8-10.8)
[2023-12-25 07:43] LABS: Blood Urea Nitrogen 18 mg/dl (7-17); Estimated Creatinine Clearance 45 ml/min
--- NOTE | 2023-12-25 09:24 | PHA.KIN.UP ---
Assessment / Plan
- Assessment
Renal Function: Stable
WBC's are: WNL
Laboratory Tests
12/24/23 12/25/23
05:39 06:59
Random Gentamicin 5.1 1.1
Level remains > 0.5
PK between levels 5.1 and 1.1:
ke = 0.0605
half-life 11 H
Expected to maintain level > 0.5 for 16H based on ke 0.0605 and level anticipated to be 0.26 in 24H
- Dosing by Levels
Dosing Today: Hold off on dosing today
Will schedule Gentamicin 240mg x1 to be administered tomorrow 12/25 0600
Will re-evaluate for levels tomorrow
- Follow Up
Pharmacy will continue to follow.
FollowUp Pharmacokinetics Note
- -
Patient Age: 83
Patient Sex: Female
Antibiotic: Gentamicin
Antibiotic Day #: 5
Indication: Genito-Urinary Tract
Requesting Provider: Dr. Lucas
Pertinent Antimicrobial Allergies:
no pertinent antibiotic allergies
Height / Weight:
Height 5 ft 1 in
Actual Weight 112.746 kg
IBW in k.8
Adjusted BW in k.8
Pertinent Past Medical History: BMI ~47, renal stone s/p uretal stent
- Vital Signs / Lab Results
Temp Pulse Resp BP Pulse Ox
97.9 F 68 16 126/68 95
12/25/23 07:17 12/25/23 07:17 12/25/23 07:17 12/25/23 07:17 12/25/23 07:17
Lab Results - Hematology
12/24/23 12/25/23
05:48 06:59
WBC 7.3 7.1
Lab Results - Chemistry
12/22/23 12/24/23 12/25/23
07:11 05:39 06:59
BUN 13 16 18 H
Creatinine 0.9 1.1 H 1.1 H
Estimated Creat Clear 55 45 45
Microbiology Results
12/18/23 22:49 Urine Culture - Final
Urine Enterococcus faecium - VRE
Pseudomonas aeruginosa
Concomitant Antimicrobials: Cefepime
Therapeutic Drug Monitoring
Gentamicin Peak > 20.0 ug/ml H* 12/23/23 10:38
Random Gentamicin 1.1 ug/ml 12/25/23 06:59
[2023-12-25] MEDS: VISBIOME 1 CAP PO (10:01)
[2023-12-25] MEDS: CLARITIN 10 MG PO (10:01)
[2023-12-25] MEDS: FIBERCON 625 MG PO ×2 (10:02→20:42)
[2023-12-25] MEDS: NAMENDA 10 MG PO ×2 (10:02→20:42)
[2023-12-25] MEDS: MAGNESIUM OXIDE 500 MG PO ×2 (10:02→17:39)
[2023-12-25] MEDS: NEURONTIN 300 MG PO ×2 (10:02→20:41)
[2023-12-25] MEDS: VITAMIN B-12 100 MCG PO (10:02)
[2023-12-25] MEDS: ASPIR LOW (ENTERIC COATED) 81 MG PO (10:02)
[2023-12-25] MEDS: OSCAL 500 + D 500 MG PO ×2 (10:02→17:39)
[2023-12-25] MEDS: ZOLOFT 50 MG PO (10:02)
[2023-12-25] MEDS: FLOMAX 0.400000000000000022 MG PO (10:02)
[2023-12-25] MEDS: ELIQUIS 10 MG PO ×2 (10:03→20:41)
[2023-12-25] MEDS: PROTONIX 40 MG PO ×2 (10:03→17:39)
[2023-12-25] MEDS: THERAGRAN 1 TABLET PO (10:03)
[2023-12-25] MEDS: MAXIPIME 2000 MG IV ×2 (10:03→21:37)
[2023-12-25] MEDS: STERILE WATER FOR INJECTION 10 ML IV ×2 (10:04→21:37)
[2023-12-25] MEDS: HYDROPHOR 1 APPLIC TOPICAL (10:04)
[2023-12-25] MEDS: ZINC OXIDE OINTMENT 1 APPLIC TOPICAL ×2 (10:05→20:42)
[2023-12-25] MEDS: DESENEX/MITRAZOL/ZEASORB 1 APPLIC TOPICAL ×2 (10:05→20:41)
[2023-12-25] MEDS: DEBROX EAR DROPS 1 DROP BOTH EARS ×2 (10:06→20:41)
--- NOTE | 2023-12-25 13:47 | W.PN.HOSP.TC ---
Today's Communication/Plan
-
continue Gent for now
Assessment / Plan
Assessment / Plan
#Acute bilateral pulmonary embolism with mild right heart strain
With recent hospitalization ? Provoked due to decreased mobility
Started patient on heparin infusion and was transitioned to Eliquis
Right lower extremity Doppler No sonographic evidence for right lower extremity deep venous thrombosis.
Left LE: No sonographic evidence for left lower extremity deep venous thrombosis.
ECHO limited study as patient was argumentative. EF 55 to 60%. Diastolic function indeterminate. Right heart pressures could not be determined. Normal right ventricular size. Normal right ventricular systolic function.
appreciate input from pulmonary
Gent level 5.1
BUN/Creat 18/1.1
#Left foot fracture with Ortho boot
Venous Doppler negative for DVT
Per daughter patient is able to ambulate with a walker and improved
#Recent obstructive renal stone status post ureteral stent placement at [place] by Dr. Gill
# Polymicrobial urinary tract infection with VRE Enterococcus and Pseudomonas
Culture data noted with clancy resistance to VRE and only susceptible to gentamicin and oral linezolid
Continue with cefepime. Gentamycin 400 mg daily has been ordered
CT abdomen with stent: 1. ACUTE BILATERAL LOWER LOBE PULMONARY ARTERIAL EMBOLIC DISEASE.
2. Mild to moderate right hydronephrosis with a right ureteral stent in normal position. Mild right periureteral inflammation which could be infectious or inflammatory in etiology. 6.7 mm nonobstructing right intrarenal calculus.
3. Multiple small nonobstructing left intrarenal calculi.
4. Mild to moderate chronic bilateral renal disease.
5. Moderate diffuse hepatic steatosis.
6. Severe diffuse pancreatic lipomatosis.
7. Severe colonic diverticulosis.
8. Previous sigmoidectomy and cholecystectomy.
Records requested.
appreciate ID input
Recommendation is to continue the Gent
would complete course of abx here, then dc to SNF with planned follow up of renal stone
Discussed with Dr. Sy, feels very strongly that pt should follow up with usual Urologist ([facility]) post dc for stent and stone removal. Timing will be complicated, as should be treated for PE prior to stopping OAC in order to remove
stent/stone
#Dementia
Continue with memantine and donepezil
Unclear if with behavioral disturbances
#Mood disorder
Continue with sertraline and Remeron
#GERD
Continue with PPI
Neuropathy
History of sciatica
Cont with gabapentin
PT/OT ordered
DVT ppx-hep gtt
d/w with daughter Holley over the phone in details, many questions and concerns 20 minutes in extensive review. update 12/21
Pt will need follow up with prior urologist, Dr. Saab post discharge. Discussed with Dr. Armando who recommends pulmonary evaluation prior to undergoing lithotripsy with stent extraction, where Eliquis would have to be placed on hold and
bridging with Heparin, stopping immediately prior to procedure would have to be utilized. The exact management of the stone intervention will be deferred to Dr. Saab. Plan is to dc to SNF, weekly UA with C&S would be appropriate until the
stone can be extracted
Anticipated Discharge: > 48 hours
Subjective/Interval History
-
Date of Service: December 25, 2023
Appears comfortable
Objective Data
-
Labs:
Laboratory Results
12/25/23
06:59
WBC 7.1
Hgb 13.5
Hct 39.5
Plt Count 234
BUN 18 H
Creatinine 1.1 H
Vital Signs:
Vital Signs
Temp Pulse Resp BP Pulse Ox
97.9 F 68 16 126/68 95
12/25/23 07:17 12/25/23 07:17 12/25/23 07:17 12/25/23 07:17 12/25/23 07:17
I&O
12/24/23 12/25/23 12/26/23
06:59 06:59 06:59
Intake Total 1240 / 1240 840 / 840
Balance 1240 / 1240 840 / 840
Review of Systems
-
History Source: Coordinated Provider
Constitutional: Denies Fever
Respiratory: Reports No Symptoms
Cardiac: Reports No Symptoms
Abdomen/GI: Reports No Symptoms
Genitourinary: Denies Dysuria
Physical Exam
-
General: Well Developed, Well Nourished, No Apparent Distress and Appears Chronically Ill
HEENT: Normocephalic, Atraumatic and Moist Mucous Membranes
Respiratory: Clear to Auscultation; Negative Wheezes, Rales or Rhonchi
Cardiac: Regular Rhythm and S1/S2
GI: Soft, Nontender and Nondistended
Musculoskeletal: No Clubbing, No Cyanosis and No Edema
Skin: Warm and Dry
Neuro: Awake and Alert; Negative Oriented (more conversant than previous visit, but obvious cognitive impairment)
Psych: Calm
--- NOTE | 2023-12-25 14:01 | CM ---
Addendum entered by Rocio Parks 12/25/23 15:26:
TC to daughter Holley, she lives in [facility], reviewed options and she chose additional facilities.
Referrals sent via [facility]port.
Addendum entered by Rocio Parks 12/25/23 15:17:
[facility], no beds available.
Original Note:
Patient accepted at [facility] pending bed availability, facility is out of network.
Per liaison [facility], costs would be: for days 1-43 $225 per day, days 44-100 $0.
Per [facility]- [facility], unable to accept.
[facility], interested, currently no beds. will updated daughter.
[2023-12-25 14:07] VITALS: BP 96/55; BP 99/55; PULSE 78; PULSE 81
[2023-12-25 15:11] VITALS: BP 114/63
[2023-12-25] MEDS: ARICEPT 10 MG PO (20:40)
[2023-12-25] MEDS: REMERON 7.5 MG PO (20:41)
[2023-12-25 23:00] VITALS: BP 89/64
[2023-12-26] MEDS: GENTAMICIN 56 MG IV (06:16)
[2023-12-26 07:30] VITALS: BP 121/72
[2023-12-26 08:29] LABS: % Basophils 0.8 % (0-2); % Eosinophils 6.6 % (0-6); % Immature Granulocytes 0.5 % (0-0.5); % Lymphocytes 32.7 % (20.5-51.1); % Monocytes 9.4 % (1.7-9.3); Absolute Basophils 0.1 10^3/uL (0-0.2); Absolute Eosinophils 0.5 10^3/uL (0-0.7); Absolute Lymphocytes 2.5 10^3/uL (1.2-3.4); Absolute Monocytes 0.7 10^3/uL (0.1-0.6); Absolute Neutrophils 3.8 10^3/uL (1.4-6.5); Hematocrit 40.7 % (37.0-47.0); Hemoglobin 13.7 g/dL (12.0-16.0); Mean Corp Hgb Conc. 33.7 g/dL (33.0-37.0); Mean Corpuscular Hgb 32.2 pg (27.0-31.0); Mean Corpuscular Volume 95.5 fL (81.0-99.0); Mean Platelet Volume 9.9 fL (7.4-10.4); Nucleated Red Blood Cells % 0 %; Platelet Count 209 10^3/uL (130-400); Red Blood Cell Count 4.26 10^6/uL (4.20-5.40); Red Cell Dist. Width 13.8 % (11.5-14.5); White Blood Cell Count 7.7 10^3/uL (4.8-10.8)
[2023-12-26 09:07] LABS: Blood Urea Nitrogen 17 mg/dl (7-17); Calcium 9.8 mg/dl (8.4-10.2); Carbon Dioxide 25 mmol/L (22-30); Chloride 106 mmol/L (98-107); Estimated Creatinine Clearance 41 ml/min; Glucose 111 mg/dl (70-99); Potassium 3.9 mmol/L (3.5-5.1); Sodium 138 mmol/L (135-145); eGFR 44.91
[2023-12-26] MEDS: NEURONTIN 300 MG PO ×2 (10:10→21:52)
[2023-12-26] MEDS: VITAMIN B-12 100 MCG PO (10:10)
[2023-12-26] MEDS: ELIQUIS 10 MG PO ×2 (10:10→21:52)
[2023-12-26] MEDS: FIBERCON 625 MG PO ×2 (10:10→21:52)
[2023-12-26] MEDS: MAGNESIUM OXIDE 500 MG PO ×2 (10:10→16:16)
[2023-12-26] MEDS: ASPIR LOW (ENTERIC COATED) 81 MG PO (10:10)
[2023-12-26] MEDS: CLARITIN 10 MG PO (10:10)
[2023-12-26] MEDS: PROTONIX 40 MG PO ×2 (10:10→16:16)
[2023-12-26] MEDS: FLOMAX 0.400000000000000022 MG PO (10:10)
[2023-12-26] MEDS: THERAGRAN 1 TABLET PO (10:11)
[2023-12-26] MEDS: MAXIPIME 2000 MG IV ×2 (10:11→21:56)
[2023-12-26] MEDS: VISBIOME 1 CAP PO (10:11)
[2023-12-26] MEDS: NAMENDA 10 MG PO ×2 (10:11→21:51)
[2023-12-26] MEDS: ZOLOFT 50 MG PO (10:11)
[2023-12-26] MEDS: OSCAL 500 + D 500 MG PO ×2 (10:11→16:16)
[2023-12-26] MEDS: STERILE WATER FOR INJECTION 10 ML IV ×2 (10:11→21:56)
[2023-12-26] MEDS: HYDROPHOR 1 APPLIC TOPICAL (10:13)
[2023-12-26] MEDS: ZINC OXIDE OINTMENT 1 APPLIC TOPICAL ×2 (10:13→21:55)
[2023-12-26] MEDS: DESENEX/MITRAZOL/ZEASORB 1 APPLIC TOPICAL ×2 (10:14→21:54)
[2023-12-26] MEDS: DEBROX EAR DROPS 1 DROP BOTH EARS ×2 (10:14→21:54)
--- NOTE | 2023-12-26 10:22 | CM ---
Addendum entered by Rocio Parks 12/26/23 16:23:
[facility] NPI# [id number]
Dr Venkatesh Brewer NPI# [id number]
Report# [phone]

Patient also accepted at [facility] contact Cecilia [phone]
Daughter Holley updated, she will contact in am with their choice.
Addendum entered by Rocio Parks 12/26/23 16:20:
TCB from daughter Holley, they would like the [facility], left for Dolly Ji from the [facility] requesting NPI numbers.
Continue IV anbx. Per , no anbx on d/c to skilled rehab
Plan: D/C to [facility] Friday, needs insurance auth.
Addendum entered by Rocio Parks 12/26/23 15:52:
TC to daughter Holley
Updated re skilled facilities:
Accepted at [facility]
No bed at [facility], [facility] and [facility].
[facility] is reviewing.
Holley will review with sister Carolina.
Patient will need insurance auth for tentative d/c Friday.
Original Note:
Spoke with patients daughter Carolina bedside.
[facility] out of network and [facility] requested additional information.
Other referrals still (P).
Continue IV anbx.
PT/OT recommending skilled rehab.
Plan: skilled rehab once anbx complete, bed available and insurance auth obtained.
[2023-12-26] MEDS: D5W 25 IV ×2 (13:03→16:17)
[2023-12-26] MEDS: ORBACTIV 1000 MG IV (13:08)
--- NOTE | 2023-12-26 13:53 | W.PN.ID1 ---
Date of Service
Date of Service: December 26, 2023
Today's Communication
- notified that oritavancin available, switched, this will complete the course
- Continue cefepime until discharge on friday
Assessment / Plan
# Symptomatic complicated UTI
-Recent obstructive uropathy s/p stent placement at [place] last week
-Ucx: 100K CFU VRE (sensitive to linezolid and gent only), 50K CFU Pseudomonas
- notified that oritavancin available, switched, this will complete the course
- Continue cefepime until discharge on friday
- agree that prior to urologic procedures urine culture should be checked and any noted bacteria treated
# Acute Large PE
#Additional Past Medical History:
Dementia
Asthma
nephrolithiasis
Recent obstructive uropathy s/p right ureter stent
Neuropathy
Sciatica
Mood disorder
Recurrent UTI
Class III obesity BMI 47
left foot fracture
h/o obstipation/perforated bowel s/p repair
B TKA
Chief Complaint
-: UTI
Subjective / Review of Systems
afebrile
bp stable
without leukocytosis
further slow increase in cr
gent level this am 1.1 - was redosed yesterday
plan to switch to oritavancin
Vital Signs / Physical Exam
Vital Signs
Vital Signs
Temp Pulse Resp BP Pulse Ox
97.8 F 76 17 121/72 95
12/26/23 07:30 12/26/23 07:30 12/26/23 07:30 12/26/23 07:30 12/26/23 07:30
Physical Exam
Constitutional: No Acute Distress
Cardiovascular: Regular Rate and S1/S2; Negative Murmur or Rub
Pulmonary: Clear and Symmetric; Negative Wheezes or Rales
Gastrointestinal: Soft, Non Tender, Non Distended and Normal Bowel Sounds
Genito-Urinary: Negative Suprapubic Tenderness
Skin: Warm and Dry; Negative Rash or Jaundice
Objective Data
Lab Data
Lab Results
12/26/23 08:11
12/26/23 08:11
APTT 76.5 Sec (23.4-35.0) H 12/22/23 07:11
Estimated Creat Clear 41 ml/min 12/26/23 08:11
Total Bilirubin 0.6 mg/dl (0.2-1.3) 12/18/23 20:01
AST 38 U/L (14-36) H 12/18/23 20:01
ALT 22 U/L (0-35) 12/18/23 20:01
Alkaline Phosphatase 89 U/L (38-126) 12/18/23 20:01
Most recent labs reviewed.
Micro Results:
12/18/23 22:49 Urine Culture - Final
Urine Enterococcus faecium - VRE
Pseudomonas aeruginosa
12/19/23 05:32 MRSA Screen - Final
Nose No Methicillin Resistant Staphylococcus aureus isolated.
12/19/23 CTa/p: ACUTE BILATERAL LOWER LOBE PULMONARY ARTERIAL EMBOLIC DISEASE. Mild to moderate right hydronephrosis with a right ureteral stent in normal position. Mild right periureteral inflammation which could be infectious or inflammatory in
etiology. 6.7 mm nonobstructing right intrarenal calculus.
12/19/[address]: SEVERE ACUTE BILATERAL PULMONARY ARTERIAL EMBOLIC DISEASE with suggestion of mild right heart strain.
Care Review
Plan reviewed with: Other Provider (clinical pharmacist - [facility])
[2023-12-26 15:30] VITALS: BP 121/61
--- NOTE | 2023-12-26 17:14 | W.PN.HOSP.TC ---
Today's Communication/Plan
-
As per CM, plan is to dc to SNF once prior auth received
Assessment / Plan
Assessment / Plan
#Acute bilateral pulmonary embolism with mild right heart strain
With recent hospitalization ? Provoked due to decreased mobility
Started patient on heparin infusion and was transitioned to Eliquis
Right lower extremity Doppler No sonographic evidence for right lower extremity deep venous thrombosis.
Left LE: No sonographic evidence for left lower extremity deep venous thrombosis.
ECHO limited study as patient was argumentative. EF 55 to 60%. Diastolic function indeterminate. Right heart pressures could not be determined. Normal right ventricular size. Normal right ventricular systolic function.
appreciate input from pulmonary
Gent level 5.1
BUN/Creat 18/1.1
#Left foot fracture with Ortho boot
Venous Doppler negative for DVT
Per daughter patient is able to ambulate with a walker and improved
#Recent obstructive renal stone status post ureteral stent placement at [place] by Dr. Gill
# Polymicrobial urinary tract infection with VRE Enterococcus and Pseudomonas
Culture data noted with clancy resistance to VRE and only susceptible to gentamicin and oral linezolid
Continue with cefepime. Gentamycin 400 mg daily has been ordered
CT abdomen with stent: 1. ACUTE BILATERAL LOWER LOBE PULMONARY ARTERIAL EMBOLIC DISEASE.
2. Mild to moderate right hydronephrosis with a right ureteral stent in normal position. Mild right periureteral inflammation which could be infectious or inflammatory in etiology. 6.7 mm nonobstructing right intrarenal calculus.
3. Multiple small nonobstructing left intrarenal calculi.
4. Mild to moderate chronic bilateral renal disease.
5. Moderate diffuse hepatic steatosis.
6. Severe diffuse pancreatic lipomatosis.
7. Severe colonic diverticulosis.
8. Previous sigmoidectomy and cholecystectomy.
Records requested.
appreciate ID input
Gent will be stopped. Cefepime to be continued, but will receive 1 dose of Oritavancin
would complete course of abx here, then dc to SNF with planned follow up of renal stone
Discussed with Dr. Sy, feels very strongly that pt should follow up with usual Urologist ([facility]) post dc for stent and stone removal. Timing will be complicated, as should be treated for PE prior to stopping OAC in order to remove
stent/stone. As per dgt, [place], this will be done at [facility]
#Dementia
Continue with memantine and donepezil
Unclear if with behavioral disturbances
#Mood disorder
Continue with sertraline and Remeron
#GERD
Continue with PPI
Neuropathy
History of sciatica
Cont with gabapentin
PT/OT ordered
DVT ppx-hep gtt
d/w with daughter Holley over the phone in details, many questions and concerns 20 minutes in extensive review. update 12/21
Pt will need follow up with prior urologist, Dr. Saab post discharge. Discussed with Dr. Armando who recommends pulmonary evaluation prior to undergoing lithotripsy with stent extraction, where Eliquis would have to be placed on hold and
bridging with Heparin, stopping immediately prior to procedure would have to be utilized. The exact management of the stone intervention will be deferred to Dr. Saab. Plan is to dc to SNF, weekly UA with C&S would be appropriate until the
stone can be extracted
Anticipated Discharge: > 48 hours
Subjective/Interval History
-
Date of Service: December 26, 2023
More alert today
Objective Data
-
Labs:
Laboratory Results
12/26/23
08:11
WBC 7.7
Hgb 13.7
Hct 40.7
Plt Count 209
Sodium 138
Potassium 3.9
Chloride 106
Carbon Dioxide 25
BUN 17
Creatinine 1.2 H
Glucose 111 H
Calcium 9.8
Vital Signs:
Vital Signs
Temp Pulse Resp BP Pulse Ox
97.6 F 77 17 121/61 95
12/26/23 15:30 12/26/23 15:30 12/26/23 15:30 12/26/23 15:30 12/26/23 15:30
I&O
12/25/23 12/26/23 12/27/23
06:59 06:59 06:59
Intake Total 840 / 840 480 / 480
Balance 840 / 840 480 / 480
Review of Systems
-
History Source: Coordinated Provider
Constitutional: Denies Fever
Respiratory: Reports No Symptoms
Cardiac: Reports No Symptoms
Abdomen/GI: Reports No Symptoms
Genitourinary: Denies Dysuria
Physical Exam
-
General: Well Developed, Well Nourished, No Apparent Distress and Appears Chronically Ill
HEENT: Normocephalic, Atraumatic and Moist Mucous Membranes
Respiratory: Clear to Auscultation; Negative Wheezes, Rales or Rhonchi
Cardiac: Regular Rhythm and S1/S2
GI: Soft, Nontender and Nondistended
Musculoskeletal: No Clubbing, No Cyanosis and No Edema
Skin: Warm and Dry
Neuro: Awake and Alert; Negative Oriented (more conversant than previous visit, but obvious cognitive impairment)
Psych: Calm
[2023-12-26] MEDS: REMERON 7.5 MG PO (21:52)
[2023-12-26] MEDS: ARICEPT 10 MG PO (21:53)
[2023-12-26 23:58] VITALS: BP 116/48
[2023-12-27 08:00] VITALS: BP 118/67
[2023-12-27] MEDS: ZOLOFT 50 MG PO (08:32)
[2023-12-27] MEDS: ELIQUIS 10 MG PO ×2 (08:32→20:56)
[2023-12-27] MEDS: ASPIR LOW (ENTERIC COATED) 81 MG PO (08:32)
[2023-12-27] MEDS: OSCAL 500 + D 500 MG PO ×2 (08:32→17:06)
[2023-12-27] MEDS: NEURONTIN 300 MG PO ×2 (08:32→20:56)
[2023-12-27] MEDS: MAGNESIUM OXIDE 500 MG PO ×2 (08:32→17:06)
[2023-12-27] MEDS: VITAMIN B-12 100 MCG PO (08:33)
[2023-12-27] MEDS: DEBROX EAR DROPS 1 DROP BOTH EARS ×2 (08:33→20:58)
[2023-12-27] MEDS: CLARITIN 10 MG PO (08:33)
[2023-12-27] MEDS: THERAGRAN 1 TABLET PO (08:33)
[2023-12-27] MEDS: NAMENDA 10 MG PO ×2 (08:33→20:56)
[2023-12-27] MEDS: PROTONIX 40 MG PO ×2 (08:33→17:06)
[2023-12-27] MEDS: VISBIOME 1 CAP PO (08:33)
[2023-12-27] MEDS: ZINC OXIDE OINTMENT 1 APPLIC TOPICAL ×2 (08:33→20:58)
[2023-12-27] MEDS: FLOMAX 0.400000000000000022 MG PO (08:33)
[2023-12-27] MEDS: FIBERCON 625 MG PO ×2 (08:33→20:56)
[2023-12-27] MEDS: DESENEX/MITRAZOL/ZEASORB 1 APPLIC TOPICAL ×2 (08:34→20:58)
[2023-12-27] MEDS: HYDROPHOR 1 APPLIC TOPICAL (08:34)
[2023-12-27] MEDS: MAXIPIME 2000 MG IV ×2 (10:00→20:57)
[2023-12-27] MEDS: STERILE WATER FOR INJECTION 10 ML IV ×2 (10:00→20:56)
--- NOTE | 2023-12-27 12:23 | CM ---
CM spoke with Rosi from [facility], able to accept patient for SNF. Patient will require auth through insurance, will need updated PT notes before submitting to insurance, TT sent to PT. CM will continue to follow for discharge planning needs.
Plan; submit for auth once PT updates, [facility].
[2023-12-27 15:30] VITALS: BP 108/71
--- NOTE | 2023-12-27 15:54 | W.PN.HOSP.TC ---
Today's Communication/Plan
-
continue Eliquis
As per ID, continue Cefepime until dc
hopefully receive prior auth on Friday to allow dc to SNF
Assessment / Plan
Assessment / Plan
#Acute bilateral pulmonary embolism with mild right heart strain
With recent hospitalization ? Provoked due to decreased mobility
Started patient on heparin infusion and was transitioned to Eliquis 10 mg bid x 7 days (received 10 out of 14 doses to date), then 5mg bid to follow
Right lower extremity Doppler No sonographic evidence for right lower extremity deep venous thrombosis.
Left LE: No sonographic evidence for left lower extremity deep venous thrombosis.
ECHO limited study as patient was argumentative. EF 55 to 60%. Diastolic function indeterminate. Right heart pressures could not be determined. Normal right ventricular size. Normal right ventricular systolic function.
appreciate input from pulmonary
Gent level 5.1
BUN/Creat 18/1.1-->17/1.2
#Left foot fracture with Ortho boot
Venous Doppler negative for DVT
Per daughter patient is able to ambulate with a walker and improved
#Recent obstructive renal stone status post ureteral stent placement at [place] by Dr. Gill
# Polymicrobial urinary tract infection with VRE Enterococcus and Pseudomonas
Culture data noted with clancy resistance to VRE and only susceptible to gentamicin and oral linezolid
Continue with cefepime. Gentamycin 400 mg daily has been ordered
CT abdomen with stent: 1. ACUTE BILATERAL LOWER LOBE PULMONARY ARTERIAL EMBOLIC DISEASE.
2. Mild to moderate right hydronephrosis with a right ureteral stent in normal position. Mild right periureteral inflammation which could be infectious or inflammatory in etiology. 6.7 mm nonobstructing right intrarenal calculus.
3. Multiple small nonobstructing left intrarenal calculi.
4. Mild to moderate chronic bilateral renal disease.
5. Moderate diffuse hepatic steatosis.
6. Severe diffuse pancreatic lipomatosis.
7. Severe colonic diverticulosis.
8. Previous sigmoidectomy and cholecystectomy.
Records requested.
appreciate ID input
Gent will be stopped. Cefepime to be continued, but will receive 1 dose of Oritavancin
would complete course of abx here, then dc to [facility] with planned follow up of renal stone
Discussed with Dr. Sy, feels very strongly that pt should follow up with usual Urologist ([facility]) post dc for stent and stone removal. Timing will be complicated, as should be treated for PE prior to stopping OAC in order to remove
stent/stone. As per dgt, [place], this will be done at [facility]
#Dementia
Continue with memantine and donepezil
Unclear if with behavioral disturbances
#Mood disorder
Continue with sertraline and Remeron
#GERD
Continue with PPI
Neuropathy
History of sciatica
Cont with gabapentin
PT/OT ordered
DVT ppx-hep gtt
d/w with daughter Holley over the phone in details, many questions and concerns 20 minutes in extensive review. update 12/21
Pt will need follow up with prior urologist, Dr. Saab post discharge. Discussed with Dr. Armando who recommends pulmonary evaluation prior to undergoing lithotripsy with stent extraction, where Eliquis would have to be placed on hold and
bridging with Heparin, stopping immediately prior to procedure would have to be utilized. The exact management of the stone intervention will be deferred to Dr. Saab. Plan is to dc to SNF, weekly UA with C&S would be appropriate until the
stone can be extracted
Anticipated Discharge: > 48 hours
Subjective/Interval History
-
Date of Service: December 27, 2023
Sitting up, appears comfortable
Objective Data
-
Vital Signs:
Vital Signs
Temp Pulse Resp BP Pulse Ox
97.7 F 69 18 118/67 95
12/27/23 08:00 12/27/23 08:00 12/27/23 08:00 12/27/23 08:00 12/27/23 08:30
I&O
12/26/23 12/27/23 12/28/23
06:59 06:59 06:59
Intake Total 480 / 480 720 / 720
Balance 480 / 480 720 / 720
Review of Systems
-
History Source: Coordinated Provider
Constitutional: Denies Fever
Respiratory: Reports No Symptoms
Cardiac: Reports No Symptoms
Abdomen/GI: Reports No Symptoms
Genitourinary: Denies Dysuria
Physical Exam
-
General: Well Developed, Well Nourished, No Apparent Distress and Appears Chronically Ill
HEENT: Normocephalic, Atraumatic and Moist Mucous Membranes
Respiratory: Clear to Auscultation; Negative Wheezes, Rales or Rhonchi
Cardiac: Regular Rhythm and S1/S2
GI: Soft, Nontender and Nondistended
Musculoskeletal: No Clubbing, No Cyanosis and No Edema
Skin: Warm and Dry
Neuro: Awake and Alert; Negative Oriented (more conversant than previous visit, but obvious cognitive impairment)
Psych: Calm
[2023-12-27] MEDS: REMERON 7.5 MG PO (20:56)
[2023-12-27] MEDS: ARICEPT 10 MG PO (20:56)
[2023-12-27 23:15] VITALS: BP 125/73
--- NOTE | 2023-12-28 05:43 | PTCARENOTE ---
Pt SpO2 level 92% on room air, oxygen removed from pt and pt is now on room air
[2023-12-28 07:04] LABS: % Basophils 0.7 % (0-2); % Eosinophils 5.5 % (0-6); % Immature Granulocytes 0.4 % (0-0.5); % Lymphocytes 29.6 % (20.5-51.1); % Monocytes 7.3 % (1.7-9.3); % Neutrophils 56.5 % (42.2-75.2); Absolute Basophils 0.1 10^3/uL (0-0.2); Absolute Eosinophils 0.4 10^3/uL (0-0.7); Absolute Lymphocytes 2.2 10^3/uL (1.2-3.4); Absolute Monocytes 0.5 10^3/uL (0.1-0.6); Absolute Neutrophils 4.1 10^3/uL (1.4-6.5); Hematocrit 38.8 % (37.0-47.0); Mean Corp Hgb Conc. 33.5 g/dL (33.0-37.0); Mean Corpuscular Hgb 31.9 pg (27.0-31.0); Mean Corpuscular Volume 95.1 fL (81.0-99.0); Mean Platelet Volume 10.4 fL (7.4-10.4); Nucleated Red Blood Cells % 0 %; Platelet Count 197 10^3/uL (130-400); Red Blood Cell Count 4.08 10^6/uL (4.20-5.40); Red Cell Dist. Width 13.4 % (11.5-14.5); White Blood Cell Count 7.3 10^3/uL (4.8-10.8)
[2023-12-28 07:51] VITALS: BP 121/61
[2023-12-28 08:05] LABS: Blood Urea Nitrogen 22 mg/dl (7-17); Calcium 9.6 mg/dl (8.4-10.2); Carbon Dioxide 29 mmol/L (22-30); Chloride 104 mmol/L (98-107); Estimated Creatinine Clearance 26 ml/min; Glucose 105 mg/dl (70-99); Potassium 3.4 mmol/L (3.5-5.1); Sodium 135 mmol/L (135-145); eGFR 25.88
[2023-12-28] MEDS: CLARITIN 10 MG PO (08:34)
[2023-12-28] MEDS: OSCAL 500 + D 500 MG PO ×2 (08:34→17:03)
[2023-12-28] MEDS: VISBIOME 1 CAP PO (08:34)
[2023-12-28] MEDS: NEURONTIN 300 MG PO ×2 (08:35→20:06)
[2023-12-28] MEDS: THERAGRAN 1 TABLET PO (08:35)
[2023-12-28] MEDS: ASPIR LOW (ENTERIC COATED) 81 MG PO (08:35)
[2023-12-28] MEDS: FIBERCON 625 MG PO ×2 (08:35→20:06)
[2023-12-28] MEDS: FLOMAX 0.400000000000000022 MG PO (08:35)
[2023-12-28] MEDS: PROTONIX 40 MG PO ×2 (08:35→17:03)
[2023-12-28] MEDS: ELIQUIS 10 MG PO ×2 (08:35→20:06)
[2023-12-28] MEDS: VITAMIN B-12 100 MCG PO (08:35)
[2023-12-28] MEDS: NAMENDA 10 MG PO ×2 (08:35→20:06)
[2023-12-28] MEDS: ZOLOFT 50 MG PO (08:35)
[2023-12-28] MEDS: MAGNESIUM OXIDE 500 MG PO ×2 (08:35→17:03)
[2023-12-28] MEDS: DESENEX/MITRAZOL/ZEASORB 1 APPLIC TOPICAL ×2 (08:38→20:11)
[2023-12-28] MEDS: HYDROPHOR 1 APPLIC TOPICAL (08:38)
[2023-12-28] MEDS: DEBROX EAR DROPS 1 DROP BOTH EARS (08:39)
[2023-12-28] MEDS: STERILE WATER FOR INJECTION 10 ML IV (09:29)
[2023-12-28] MEDS: MAXIPIME 2000 MG IV (09:29)
[2023-12-28] MEDS: ZINC OXIDE OINTMENT 1 APPLIC TOPICAL ×2 (09:29→20:12)
--- NOTE | 2023-12-28 11:16 | W.PN.HOSP.TC ---
Addendum entered and electronically signed by Heath Hong MD 12/28/23 11:26:
With slight rise in BUN/Creat will recheck tomorrow to confirm stability
Original Note:
Today's Communication/Plan
-
Continue Eliquis 10 mg bid, decrease to 5 mg bid once received 14 doses
Assessment / Plan
Assessment / Plan
#Acute bilateral pulmonary embolism with mild right heart strain
With recent hospitalization ? Provoked due to decreased mobility
Started patient on heparin infusion and was transitioned to Eliquis 10 mg bid x 7 days (received 12 out of 14 doses to date), then 5mg bid to follow
Right lower extremity Doppler No sonographic evidence for right lower extremity deep venous thrombosis.
Left LE: No sonographic evidence for left lower extremity deep venous thrombosis.
ECHO limited study as patient was argumentative. EF 55 to 60%. Diastolic function indeterminate. Right heart pressures could not be determined. Normal right ventricular size. Normal right ventricular systolic function.
appreciate input from pulmonary
Gent has been stopped
BUN/Creat 18/1.1-->17/1.2-->22/1.9
#Left foot fracture with Ortho boot
Venous Doppler negative for DVT
Per daughter patient is able to ambulate with a walker and improved
#Recent obstructive renal stone status post ureteral stent placement at [place] by Dr. Gill
# Polymicrobial urinary tract infection with VRE Enterococcus and Pseudomonas
Culture data noted with clancy resistance to VRE and only susceptible to gentamicin and oral linezolid
Continue with cefepime. Gentamycin 400 mg daily has been ordered
CT abdomen with stent: 1. ACUTE BILATERAL LOWER LOBE PULMONARY ARTERIAL EMBOLIC DISEASE.
2. Mild to moderate right hydronephrosis with a right ureteral stent in normal position. Mild right periureteral inflammation which could be infectious or inflammatory in etiology. 6.7 mm nonobstructing right intrarenal calculus.
3. Multiple small nonobstructing left intrarenal calculi.
4. Mild to moderate chronic bilateral renal disease.
5. Moderate diffuse hepatic steatosis.
6. Severe diffuse pancreatic lipomatosis.
7. Severe colonic diverticulosis.
8. Previous sigmoidectomy and cholecystectomy.
Records requested.
appreciate ID input
Gent stopped. Cefepime to be continued, but received 1 dose of Oritavancin
would complete Cefepime here, prior to dc, then dc to [facility] with planned follow up of renal stone
Discussed with Dr. Sy, feels very strongly that pt should follow up with usual Urologist ([facility]) post dc for stent and stone removal. Timing will be complicated, as should be treated for PE prior to stopping OAC in order to remove
stent/stone. As per dgt, [place], this will be done at [facility]
#Dementia
Continue with memantine and donepezil
Unclear if with behavioral disturbances
#Mood disorder
Continue with sertraline and Remeron
#GERD
Continue with PPI
Neuropathy
History of sciatica
Cont with gabapentin
PT/OT ordered
DVT ppx-hep gtt
d/w with daughter Holley over the phone in details, many questions and concerns 20 minutes in extensive review. update 12/21
Pt will need follow up with prior urologist, Dr. Saab post discharge. Discussed with Dr. Armando who recommends pulmonary evaluation prior to undergoing lithotripsy with stent extraction, where Eliquis will be 6-12 weeks of therapy, then would
have to be placed on hold and bridging with Heparin, stopping immediately prior to procedure would have to be utilized. The exact management of the stone intervention will be deferred to Dr. Saab. Plan is to dc to [facility], weekly UA with C&S would
be appropriate until the stone can be extracted
Anticipated Discharge: 24 - 48 hours
Subjective/Interval History
-
Date of Service: December 28, 2023
Appears comfortable, more alert and conversant today
Objective Data
-
Labs:
Laboratory Results
05/05/24
06:09
WBC 7.3
Hgb 13.0
Hct 38.8
Plt Count 197
Sodium 135
Potassium 3.4 L
Chloride 104
Carbon Dioxide 29
BUN 22 H
Creatinine 1.9 H
Glucose 105 H
Calcium 9.6
Vital Signs:
Vital Signs
Temp Pulse Resp BP Pulse Ox
97.9 F 67 18 121/61 96
12/28/23 07:51 12/28/23 07:51 12/28/23 07:51 12/28/23 07:51 12/28/23 08:00
I&O
12/27/23 12/28/23 12/29/23
06:59 06:59 06:59
Intake Total 720 / 720 420 / 420
Balance 720 / 720 420 / 420
Review of Systems
-
History Source: Coordinated Provider
Constitutional: Denies Fever
Respiratory: Reports No Symptoms
Cardiac: Reports No Symptoms
Abdomen/GI: Reports No Symptoms
Genitourinary: Denies Dysuria
Physical Exam
-
General: Well Developed, Well Nourished, No Apparent Distress and Appears Chronically Ill
HEENT: Normocephalic, Atraumatic and Moist Mucous Membranes
Respiratory: Clear to Auscultation; Negative Wheezes, Rales or Rhonchi
Cardiac: Regular Rhythm and S1/S2
GI: Soft, Nontender and Nondistended
Musculoskeletal: No Clubbing, No Cyanosis and No Edema
Skin: Warm and Dry
Neuro: Awake and Alert; Negative Oriented (more conversant than previous visit, but obvious cognitive impairment)
Psych: Calm
--- NOTE | 2023-12-28 12:20 | CM ---
CM spoke with patients daughter, Holley [phone], to provide update. CM discussed [facility] can offer patient a bed for tomorrow, CM awaiting PT/OT notes to submit authorization. TT sent to PT/OT to request patient seen today to submit auth
for SNF. Per PT note, patient refused PT. CM will continue to follow for discharge planning needs.
Plan; [facility] has bed for patient tomorrow, need PT/OT notes to submit for insurance auth.
[2023-12-28 15:49] VITALS: BP 121/78
[2023-12-28 16:15] VITALS: BP 114/75
[2023-12-28] MEDS: ARICEPT 10 MG PO (20:05)
[2023-12-28] MEDS: REMERON 7.5 MG PO (20:06)
[2023-12-28] MEDS: DEBROX EAR DROPS 5 DROP BOTH EARS (20:11)
[2023-12-28] MEDS: STERILE WATER FOR INJECTION IV (20:51)
[2023-12-28 23:55] VITALS: BP 112/55
[2023-12-29 06:51] LABS: Blood Urea Nitrogen 27 mg/dl (7-17); Calcium 9.6 mg/dl (8.4-10.2); Carbon Dioxide 27 mmol/L (22-30); Chloride 102 mmol/L (98-107); Estimated Creatinine Clearance 22 ml/min; Glucose 115 mg/dl (70-99); Potassium 3.5 mmol/L (3.5-5.1); Sodium 136 mmol/L (135-145); eGFR 20.57
[2023-12-29 07:25] VITALS: BP 140/75
[2023-12-29] MEDS: PROTONIX 40 MG PO ×2 (08:07→16:32)
[2023-12-29] MEDS: FIBERCON 625 MG PO ×2 (08:07→20:20)
[2023-12-29] MEDS: CLARITIN 10 MG PO (08:08)
[2023-12-29] MEDS: NEURONTIN 300 MG PO ×2 (08:08→20:21)
[2023-12-29] MEDS: VITAMIN B-12 100 MCG PO (08:08)
[2023-12-29] MEDS: ZOLOFT 50 MG PO (08:08)
[2023-12-29] MEDS: MAGNESIUM OXIDE 500 MG PO ×2 (08:08→16:32)
[2023-12-29] MEDS: FLOMAX 0.400000000000000022 MG PO (08:08)
[2023-12-29] MEDS: ASPIR LOW (ENTERIC COATED) 81 MG PO (08:08)
[2023-12-29] MEDS: NAMENDA 10 MG PO ×2 (08:08→20:21)
[2023-12-29] MEDS: OSCAL 500 + D 500 MG PO ×2 (08:08→16:32)
[2023-12-29] MEDS: THERAGRAN 1 TABLET PO (08:09)
[2023-12-29] MEDS: VISBIOME 1 CAP PO (08:09)
[2023-12-29] MEDS: ELIQUIS 10 MG PO (08:09)
[2023-12-29] MEDS: DEBROX EAR DROPS 1 DROP BOTH EARS (08:10)
[2023-12-29] MEDS: DESENEX/MITRAZOL/ZEASORB 1 APPLIC TOPICAL ×2 (08:10→20:21)
[2023-12-29] MEDS: ZINC OXIDE OINTMENT 1 APPLIC TOPICAL ×2 (08:11→20:22)
[2023-12-29] MEDS: HYDROPHOR 1 APPLIC TOPICAL (08:11)
[2023-12-29] MEDS: STERILE WATER FOR INJECTION IV ×2 (08:51→22:14)
[2023-12-29 09:05] VITALS: BP 113/52; PULSE 68; O2SAT 97
--- NOTE | 2023-12-29 09:55 | CM ---
Addendum entered by Rocio Parks 12/29/23 11:22:
d/c on hold due to increased Cr.
Cecilia from [facility] updated.
Bed will be available tomorrow.
Spoke with [place] from [facility], will withdraw auth request.
Will need to re-initiate authorization when medically stable.
Original Note:
Authorization for skilled rehab initiated with [facility] and [facility] Sudhir/Deepika p# [phone]
Clinicals faxed to [phone]
Pended reference #[id number]
Facility [facility], NPI# [id number]
Accepting MD: Dr Do NPI# [id number]
Await insurance auth.
--- NOTE | 2023-12-29 11:26 | W.PN.HOSP.TC ---
Today's Communication/Plan
-
Await urine studies
Start patient IV fluids
Trend BMP
Assessment / Plan
Assessment / Plan
#Acute bilateral pulmonary embolism with mild right heart strain
With recent hospitalization ? Provoked due to decreased mobility
Started patient on heparin infusion and was transitioned to Eliquis 10 mg bid x 7 days (received 12 out of 14 doses to date), then 5mg bid to follow
Right lower extremity Doppler No sonographic evidence for right lower extremity deep venous thrombosis.
Left LE: No sonographic evidence for left lower extremity deep venous thrombosis.
ECHO limited study as patient was argumentative. EF 55 to 60%. Diastolic function indeterminate. Right heart pressures could not be determined. Normal right ventricular size. Normal right ventricular systolic function.
appreciate input from pulmonary
#Left foot fracture with Ortho boot
Venous Doppler negative for DVT
Per daughter patient is able to ambulate with a walker and improved
#Recent obstructive renal stone status post ureteral stent placement at [place] by Dr. Gill
#Polymicrobial urinary tract infection with VRE Enterococcus and Pseudomonas
Culture data noted with clancy resistance to VRE and only susceptible to gentamicin and oral linezolid
Continue with cefepime. Gentamycin 400 mg daily has been ordered
appreciate ID input
Gent stopped. Cefepime to be continued, but received 1 dose of Oritavancin
would complete Cefepime here, prior to dc, then dc to SNF with planned follow up of renal stone
Per Dr. Sy, feels very strongly that pt should follow up with usual Urologist ([facility]) post dc for stent and stone removal. Timing will be complicated, as should be treated for PE prior to stopping OAC in order to remove stent/stone.
As per Carolina valenzuela, this will be done at [facility]
#MARJORIE likely multifactorial in the setting of renal stone status post stent placement, prerenal versus antibiotics
Urine studies are pending including eosinophils
Did receive gentamicin earlier in hospitalization
Start patient on normal saline and trend
If no improvement will need to ask nephro for input
#Dementia
Continue with memantine and donepezil
Unclear if with behavioral disturbances
#Mood disorder
Continue with sertraline and Remeron
#GERD
Continue with PPI
Neuropathy
History of sciatica
Cont with gabapentin
PT/OT ordered
DVT ppx-Eliquis
Pt will need follow up with prior urologist, Dr. Saab post discharge. Discussed with Dr. Armando who recommends pulmonary evaluation prior to undergoing lithotripsy with stent extraction, where Eliquis will be 6-12 weeks of therapy, then would
have to be placed on hold and bridging with Heparin, stopping immediately prior to procedure would have to be utilized. The exact management of the stone intervention will be deferred to Dr. Saab. Plan is to dc to SNF, weekly UA with C&S would
be appropriate until the stone can be extracted
Anticipated Discharge: Within 24 hours
Subjective/Interval History
-
Date of Service: December 29, 2023
Sitting in chair
singing
in good spirits
sister at bedside
Objective Data
-
Labs:
Laboratory Results
12/29/23
05:37
Sodium 136
Potassium 3.5
Chloride 102
Carbon Dioxide 27
BUN 27 H
Creatinine 2.3 H
Glucose 115 H
Calcium 9.6
Vital Signs:
Vital Signs
Temp Pulse Resp BP Pulse Ox
98.4 F 63 16 140/75 98
12/29/23 07:25 12/29/23 07:25 12/29/23 07:25 12/29/23 07:25 12/29/23 07:25
I&O
12/28/23 12/29/23 12/30/23
06:59 06:59 06:59
Intake Total 420 / 420 720 / 720
Balance 420 / 420 720 / 720
Physical Exam
-
General: Well Developed, Well Nourished, No Apparent Distress and Appears Chronically Ill
HEENT: Normocephalic, Atraumatic and Moist Mucous Membranes
Respiratory: Clear to Auscultation; Negative Wheezes, Rales or Rhonchi
Cardiac: Regular Rhythm and S1/S2
GI: Soft, Nontender and Nondistended
Musculoskeletal: No Clubbing, No Cyanosis and No Edema
Skin: Warm and Dry
Neuro: Awake and Alert; Negative Oriented (more conversant than previous visit, but obvious cognitive impairment)
Psych: Calm
Data Reviewed
-
Total Time Spent with Patient (in minutes): 55
[2023-12-29 11:50] LABS: Urine Sodium 61 mmol/L (30-90)
[2023-12-29] MEDS: NSS 1000 IV ×2 (12:42→22:17)
[2023-12-29 12:46] LABS: Body Fluid for Eosinophils 3% Eosinophils seen
[2023-12-29 15:15] VITALS: BP 115/79
--- NOTE | 2023-12-29 15:54 | W.PN.ID1 ---
Date of Service
Date of Service: December 29, 2023
Today's Communication
Observe off abx.
ID will sign off.
Assessment / Plan
# S/p Symptomatic complicated UTI
-Recent obstructive uropathy s/p stent placement at [place] last week
-Ucx: 100K CFU VRE (sensitive to linezolid and gent only), 50K CFU Pseudomonas
-Completed 5 days of gentamicin followed by 1 dose of oritavancin.
-Completed 9 days of cefepime
- prior to urologic procedures, urine culture should be checked and any noted bacteria treated
# MARJORIE
# Acute Large PE
#Additional Past Medical History:
Dementia
Asthma
nephrolithiasis
Recent obstructive uropathy s/p right ureter stent
Neuropathy
Sciatica
Mood disorder
Recurrent UTI
Class III obesity BMI 47
left foot fracture
h/o obstipation/perforated bowel s/p repair
B TKA
Chief Complaint
-: UTI
Subjective / Review of Systems
No new complaints.
Vital Signs / Physical Exam
Vital Signs
Vital Signs
Temp Pulse Resp BP Pulse Ox
97.7 F 65 16 115/79 95
12/29/23 15:15 12/29/23 15:15 12/29/23 15:15 12/29/23 15:15 12/29/23 15:15
Physical Exam
Constitutional: Comfortable
Cardiovascular: Regular Rate and S1/S2
Gastrointestinal: Soft, Non Tender and Non Distended
Genito-Urinary: Negative CVA Tenderness
Objective Data
Lab Data
Lab Results
12/28/23 06:09
12/29/23 05:37
APTT 76.5 Sec (23.4-35.0) H 12/22/23 07:11
Estimated Creat Clear 22 ml/min 12/29/23 05:37
Total Bilirubin 0.6 mg/dl (0.2-1.3) 12/18/23 20:01
AST 38 U/L (14-36) H 12/18/23 20:01
ALT 22 U/L (0-35) 12/18/23 20:01
Alkaline Phosphatase 89 U/L (38-126) 12/18/23 20:01
Most recent labs reviewed.
Micro Results:
12/18/23 22:49 Urine Culture - Final
Urine Enterococcus faecium - VRE
Pseudomonas aeruginosa
12/19/23 05:32 MRSA Screen - Final
Nose No Methicillin Resistant Staphylococcus aureus isolated.
12/19/23 CTa/p: ACUTE BILATERAL LOWER LOBE PULMONARY ARTERIAL EMBOLIC DISEASE. Mild to moderate right hydronephrosis with a right ureteral stent in normal position. Mild right periureteral inflammation which could be infectious or inflammatory in
etiology. 6.7 mm nonobstructing right intrarenal calculus.
12/19/[address]: SEVERE ACUTE BILATERAL PULMONARY ARTERIAL EMBOLIC DISEASE with suggestion of mild right heart strain.
[2023-12-29] MEDS: ARICEPT 10 MG PO (20:21)
[2023-12-29] MEDS: DEBROX EAR DROPS 5 DROP BOTH EARS (20:21)
[2023-12-29] MEDS: REMERON 7.5 MG PO (20:21)
[2023-12-29 23:00] VITALS: BP 142/78
[2023-12-30 07:48] VITALS: BP 129/67
[2023-12-30] MEDS: NSS 1000 IV ×2 (07:54→18:00)
[2023-12-30 08:48] LABS: Blood Urea Nitrogen 29 mg/dl (7-17); Calcium 8.8 mg/dl (8.4-10.2); Carbon Dioxide 29 mmol/L (22-30); Chloride 106 mmol/L (98-107); Estimated Creatinine Clearance 18 ml/min; Glucose 101 mg/dl (70-99); Potassium 3.4 mmol/L (3.5-5.1); Sodium 137 mmol/L (135-145); eGFR 16.97
[2023-12-30] MEDS: ASPIR LOW (ENTERIC COATED) 81 MG PO (10:37)
[2023-12-30] MEDS: OSCAL 500 + D 500 MG PO ×2 (10:37→17:59)
[2023-12-30] MEDS: NEURONTIN 300 MG PO ×2 (10:37→20:09)
[2023-12-30] MEDS: THERAGRAN 1 TABLET PO (10:37)
[2023-12-30] MEDS: FLOMAX 0.400000000000000022 MG PO (10:37)
[2023-12-30] MEDS: ZOLOFT 50 MG PO (10:37)
[2023-12-30] MEDS: VITAMIN B-12 100 MCG PO (10:37)
[2023-12-30] MEDS: NAMENDA 10 MG PO ×2 (10:38→20:08)
[2023-12-30] MEDS: MAGNESIUM OXIDE 500 MG PO ×2 (10:38→17:58)
[2023-12-30] MEDS: CLARITIN 10 MG PO (10:38)
[2023-12-30] MEDS: HYDROPHOR 1 APPLIC TOPICAL (10:38)
[2023-12-30] MEDS: FIBERCON 625 MG PO ×2 (10:38→20:08)
[2023-12-30] MEDS: VISBIOME 1 CAP PO (10:38)
[2023-12-30] MEDS: PROTONIX 40 MG PO ×2 (10:38→17:58)
[2023-12-30] MEDS: ZINC OXIDE OINTMENT 1 APPLIC TOPICAL ×2 (10:42→20:10)
[2023-12-30] MEDS: KCL ELIXIR 20 MEQ PO (10:43)
--- NOTE | 2023-12-30 10:50 | W.PN.HOSP.TC ---
Today's Communication/Plan
-
Creatinine up trended
Bladder scan protocol
Nephrology input
Out of bed eventual SNF once ready
Assessment / Plan
Assessment / Plan
#Acute bilateral pulmonary embolism with mild right heart strain
With recent hospitalization ? Provoked due to decreased mobility
Started patient on heparin infusion and was transitioned to Eliquis 10 mg bid x 7 days (received 12 out of 14 doses to date), then 5mg bid to follow
Right lower extremity Doppler No sonographic evidence for right lower extremity deep venous thrombosis.
Left LE: No sonographic evidence for left lower extremity deep venous thrombosis.
ECHO limited study as patient was argumentative. EF 55 to 60%. Diastolic function indeterminate. Right heart pressures could not be determined. Normal right ventricular size. Normal right ventricular systolic function.
appreciate input from pulmonary
#Left foot fracture with Ortho boot
Venous Doppler negative for DVT
Per daughter patient is able to ambulate with a walker and improved
#Recent obstructive renal stone status post ureteral stent placement at [facility] by Dr. Gill
#Polymicrobial urinary tract infection with VRE Enterococcus and Pseudomonas
Culture data noted with clancy resistance to VRE and only susceptible to gentamicin and oral linezolid only.
s/p cefepime course. Gentamycin 400 mg daily has been ordered and patient completed course. Did receive 1 dose of oritavancin.
appreciate ID input
dc to SNF with planned follow up of renal stone
Per Dr. Sy, feels very strongly that pt should follow up with usual Urologist ([facility]) post dc for stent and stone removal. Timing will be complicated, as should be treated for PE prior to stopping OAC in order to remove stent/stone.
As per Carolina valenzuela, this will be done at [facility]
#MARJORIE likely multifactorial in the setting of renal stone status post stent placement, prerenal versus antibiotics vs. AIN
FENA indeterminant. 3% eosinophils noted
Did receive gentamicin earlier in hospitalization
Start patient on normal saline and trend
Bladder scan ordered
Creatinine uptrending we will ask nephrology for input
#Dementia
Continue with memantine and donepezil
Unclear if with behavioral disturbances
#Mood disorder
Continue with sertraline and Remeron
#GERD
Continue with PPI
Neuropathy
History of sciatica
Cont with gabapentin
Hypokalemia
replete/monitor
PT/OT ordered recs SNF once ready.
DVT ppx-Eliquis
Pt will need follow up with prior urologist, Dr. Saab post discharge. Discussed with Dr. Armando who recommends pulmonary evaluation prior to undergoing lithotripsy with stent extraction, where Eliquis will be 6-12 weeks of therapy, then would
have to be placed on hold and bridging with Heparin, stopping immediately prior to procedure would have to be utilized. The exact management of the stone intervention will be deferred to Dr. Saab. Plan is to dc to SNF, weekly UA with C&S would
be appropriate until the stone can be extracted
d.w with daughter Carolina at bedside in details. All questions answered.
Anticipated Discharge: > 48 hours
Subjective/Interval History
-
Date of Service: December 30, 2023
States sleepy this morning
Objective Data
-
Labs:
Laboratory Results
12/30/23
08:13
Sodium 137
Potassium 3.4 L
Chloride 106
Carbon Dioxide 29
BUN 29 H
Creatinine 2.7 H
Glucose 101 H
Calcium 8.8
Vital Signs:
Vital Signs
Temp Pulse Resp BP Pulse Ox
97.5 F 75 17 129/67 96
12/30/23 07:48 12/30/23 07:48 12/30/23 07:48 12/30/23 07:48 12/30/23 07:48
I&O
12/29/23 12/30/23 12/31/23
06:59 06:59 06:59
Intake Total 720 / 720 360 / 360
Balance 720 / 720 360 / 360
Physical Exam
-
General: Well Developed, Well Nourished, No Apparent Distress and Appears Chronically Ill
HEENT: Normocephalic, Atraumatic and Moist Mucous Membranes
Respiratory: Clear to Auscultation; Negative Wheezes, Rales or Rhonchi
Cardiac: Regular Rhythm and S1/S2
GI: Soft, Nontender and Nondistended
Musculoskeletal: No Clubbing, No Cyanosis and No Edema
Skin: Warm and Dry
Psych: Calm and Apparent Dementia
Data Reviewed
-
Total Time Spent with Patient (in minutes): 55
[2023-12-30] MEDS: DESENEX/MITRAZOL/ZEASORB 1 APPLIC TOPICAL ×2 (12:00→20:09)
[2023-12-30] MEDS: STERILE WATER FOR INJECTION IV (12:15)
--- NOTE | 2023-12-30 12:20 | CM ---
D/C on hold due to lab values.
Cecilia from [facility] updated, will need to check bed availability when ready for d/c.
Authorization will be needed for skilled rehab with [facility] and [facility] p# [phone]
Clinicals will need to be faxed to [phone].
Plan: skilled rehab when medically stable.
Daughter Holley updated.
--- NOTE | 2023-12-30 12:43 | W.CON.NEPH ---
Consultation
-
Date/Time Consultation Requested: 12/30/2023 9:00 AM
Date/Time Consultation Performed: 12/30/2023 12:30 PM
Requesting Provider: Chely
Performing Provider: Dagoberto
Reason for Consultation: Acute kidney
Medical History
-
Chief Complaint: Acute kidney injury
History of Present Illness:
The patient is an 83-year-old female discharged from [facility] over a week ago s/p right ureter stent stent for obstructing nephrolith, who presented with worsening generalized weakness, intermittent abdominal pain and a vomiting
episode. In our ED she was found to be hypoxic, requiring oxygen. The patient has a history of depression and is maintained chronically on sertraline. She has ongoing bladder instability and is maintained on tamsulosin and remains on omeprazole
for GERD. On presentation to the hospital as she was short of breath she underwent CT of chest with IV contrast and was found to have significant bilateral pulmonary embolism burden. She was then placed on heparin drip. Over the course of her
admission she developed VRE and Pseudomonas in her urine which was only susceptible to gentamicin. She underwent her gentamicin course. Over the course of her admission she has now developed acute renal failure with her creatinine escalating from
0.9 on admission now up to 2.7. She continues to have ongoing issues with pleuritic chest pain and dysuria. Gentamicin had been stopped by ID
Past Medical History
Dementia
Asthma
nephrolithiasis
Recent obstructive uropathy s/p right ureter stent
Neuropathy
Sciatica
Mood disorder
Recurrent UTI
Class III obesity BMI 47
left foot fracture
h/o obstipation/perforated bowel s/p repair
B TKA
Social History
Tobacco: Non-Smoker
Alcohol: None
Drug: None
Family History
no CKD
Allergies / Home Medications
Allergy/AdvReac Type Severity Reaction Status Date / Time
Iodinated Contrast Media Allergy Unknown Unknown Verified 12/18/23 19:49
latex Allergy Unknown Unknown Verified 12/18/23 19:49
�Medication �Instructions �Recorded �Confirmed �Type
Lactobacillus rhamnosus GG 10 1 cap PO DAILY probiotic 12/18/23 12/18/23 History
billion cell capsule (Culturelle)
acetaminophen 325 mg tablet 650 mg PO Q6H PRN mild pain/fever 12/18/23 12/18/23 History
(Tylenol)
albuterol sulfate 90 mcg/actuation 2 puff inhalation R Q4HPRN PRN 12/18/23 12/18/23 History
aerosol inhaler wheezing
aspirin 81 mg tablet,delayed 81 mg PO DAILY Blood Clot 12/18/23 12/18/23 History
release Prevention/Tx
calcium carbonate 600 mg-vitamin 1 tab PO BID@0800,1700 Supplement 12/18/23 12/18/23 History
D3 20 mcg (800 unit) chewable
tablet (Caltrate 600 plus D)
carbamide peroxide 6.5 % ear drops 5 drp EACH EAR BID@08,1999 ear 12/18/23 12/18/23 History
(Ear Wax Drops) wax
cranberry extract 250 mg tablet 250 mg PO DAILY Supplement 12/18/23 12/18/23 History
cyanocobalamin (vitamin B-12) 100 100 mcg PO DAILY Supplement 12/18/23 12/18/23 History
mcg tablet
donepezil 10 mg tablet 10 mg PO DAILY@1999 cognitive 12/18/23 12/18/23 History
impairment
fexofenadine 180 mg tablet 180 mg PO DAILY Allergies 12/18/23 12/18/23 History
fiber 2 cap PO BID@08,1999 Constipation 12/18/23 12/18/23 History
gabapentin 300 mg capsule 300 mg PO BID@0800,1999 Pain 12/18/23 12/18/23 History
guaifenesin 100 mg/5 mL oral liquid 200 mg PO Q6HPRN PRN cough 12/18/23 12/18/23 History
loperamide 2 mg tablet 2 mg PO Q8HPRN PRN loose stools 12/18/23 12/18/23 History
(Anti-Diarrheal (loperamide))
magnesium oxide 400 mg PO BID@0800,1700 Supplement 12/18/23 12/18/23 History
meclizine 12.5 mg tablet 12.5 mg PO BIDPRN PRN dizziness 12/18/23 12/18/23 History
memantine 28 mg capsule 28 mg PO DAILY cognitive impairment 12/18/23 12/18/23 History
sprinkle,extended release 24hr
miconazole nitrate 2 % topical 1 applic topical BID@00,199912/18/23 12/18/23 History
cream [place]-area/labia
mineral oil-hydrophil petrolat 1 applic topical DAILY B/L arms 12/18/23 12/18/23 History
topical ointment and legs
mirtazapine 15 mg tablet 7.5 mg PO DAILY@1999 sleep 12/18/23 12/18/23 History
nystatin 100,000 unit/gram topical 1 applic topical 12/18/23 12/18/23 History
powder TID@0800,1400,1999
breast/abdominal area
omega 9-uhz-dwv-fish oil 1,000 mg 1 cap PO DAILY Supplement 12/18/23 12/18/23 History
(120 mg-180 mg) capsule (Fish Oil)
omeprazole 20 mg capsule,delayed 40 mg PO BID@0800,1700 12/18/23 12/18/23 History
release Gastrointestinal Issue
sertraline 50 mg tablet 50 mg PO DAILY Mental 12/18/23 12/18/23 History
Health/Anxiety
tamsulosin 0.4 mg capsule 0.4 mg PO DAILY Urinary Issue 12/18/23 12/18/23 History
therapeutic multivitamin 1 tab PO DAILY Supplement 12/18/23 12/18/23 History
zinc oxide 20 % topical ointment 1 applic topical BID@799,199912/18/23 12/18/23 History
sacrum
Review of Systems
-
History Source: Patient
All other systems: Negative unless noted
Constitutional: Fatigue
EENT: No Symptoms
Respiratory: Other (Ongoing pleuritic chest pain nasal cannula oxygen for shortness of breath)
Cardiac: No Symptoms
: Dysuria, Frequency and Difficulty Voiding
Musculoskeletal: Other (Lower extremity bilateral knee pain difficult ambulation, right foot boot/pain)
Skin: No Symptoms
Neurological: No Symptoms
Endocrine: No Symptoms
Hematologic/Lymphatic: No Symptoms
Physical Exam
Vital Signs
Vital Signs
Temp Pulse Resp BP Pulse Ox
97.5 F 75 17 129/67 96
12/30/23 07:48 12/30/23 07:48 12/30/23 07:48 12/30/23 07:48 12/30/23 07:48
Lab Results
12/28/23 06:09
12/30/23 08:13
WBC 7.3 10^3/uL (4.8-10.8) 12/28/23 06:09
RBC 4.08 10^6/uL (4.20-5.40) L 12/28/23 06:09
Hgb 13.0 g/dL (12.0-16.0) 12/28/23 06:09
Hct 38.8 % (37.0-47.0) 12/28/23 06:09
Plt Count 197 10^3/uL (130-400) 12/28/23 06:09
Sodium 137 mmol/L (135-145) 12/30/23 08:13
Potassium 3.4 mmol/L (3.5-5.1) L 12/30/23 08:13
Chloride 106 mmol/L (98-107) 12/30/23 08:13
Carbon Dioxide 29 mmol/L (22-30) 12/30/23 08:13
BUN 29 mg/dl (7-17) H 12/30/23 08:13
Creatinine 2.7 mg/dL (0.6-1.0) H 12/30/23 08:13
eGFR 16.97 12/30/23 08:13
Glucose 101 mg/dl (70-99) H 12/30/23 08:13
Calcium 8.8 mg/dl (8.4-10.2) 12/30/23 08:13
Albumin 4.1 g/dl (3.5-5.0) 12/18/23 20:01
Physical Exam
General: AOx3, Nontoxic , NAD,obese, chronically ill appearing
HEENT: PERRL, EOMI, Anicteric, Conjunctivae Clear, Ear/Nose Intact, Hearing Normal, Oropharynx Clear/Moist, Dentition Intact, Facial Symmetry, Neck Supple, Neck: Trachea Midline, No JVD and No Thyromegaly, no Bruits
Respiratory: Clear to auscultation bilaterally with normal lung exersion, decreased breath sounds to bases
Cardiac: S1/S2 and Regular Rate/Rhythm , distant heart sound
Breast: Deferred by me
Abdomen: Soft, Nontender, Nondistended, Normal Bowel Sounds and No Hepatosplenomegaly
Rectal: Deferred by Provider
Genito-urinary: No Costovertebral Tenderness
Extremities: No Clubbing, No Cyanosis and some trace edema
Skin: No Rash or open lesions
Neuro: Nonfocal/Grossly Intact, CN II-XII (Intact) and Strength (Musculoskeletal exam 5 out of 5 both upper and lower extremities)
Hematologic/Lymphatic: No Cervical Lymphadenopathy, No Submandibular Lymphadenopathy and No Supraclavicular Lymphadenopathy
Psych: Mood/afflect pleasant, Insight/judgement good and Appropriate
Vascular: plus 1 pedal and radial pulses
Data Reviewed
-
CT Scan: Report Reviewed by me (Abdomen pelvis CT reviewed no obstructive uropathy stent noted in right ureter)
Medical Tests (Nuc Med, Echo etc): Image Personally Visualized and interpreted (EKG personally reviewed sinus rhythm with anterior T wave abnormalities at 74 bpm)
Labs: Labs Reviewed by me (BMP CBC, urine study)
Assessment/Plan
-
Impression:
MARJORIE
Acute bilateral pulmonary embolism
Left foot fracture with Ortho boot
Complicated VRE UTI (status post gentamicin therapy)
History of recent right ureter stent placement at [facility] for obstructing right nephrolith
Dementia
Depression
Bladder instability
Neuropathy
Plan:
MARJORIE:
-Suspect due to contrast administration from CT in combination with gentamicin administration
-Gentamicin now off, positive urine eosinophils of 3% likely consistent with drug-induced acute interstitial nephritis
-Fractional excretion of sodium not consistent with prerenal stimulus
-Check bladder scan with low threshold for Kaba catheter placement given chronic bladder instability
-No acute dialysis recommendation at this time
-Will check kidney and bladder ultrasound
-Hold any further nephrotoxins, no NSAIDs
-Initial urinalysis contaminated due to underlying UTI
-Volume status difficult to ascertain given gross body habitus
--- NOTE | 2023-12-30 15:10 | WOUNDNOTE ---
ROSANA WHEELER NOTE: Followed up with patient via nurse Arreola who reports no new skin changes. Will sign off unless needed.
[2023-12-30] MEDS: ARICEPT 10 MG PO (20:08)
[2023-12-30] MEDS: REMERON 7.5 MG PO (20:09)
[2023-12-30 23:30] VITALS: BP 139/75
[2023-12-31 06:21] LABS: Blood Urea Nitrogen 29 mg/dl (7-17); Carbon Dioxide 28 mmol/L (22-30); Chloride 108 mmol/L (98-107); Estimated Creatinine Clearance 16 ml/min; Glucose 89 mg/dl (70-99); Sodium 138 mmol/L (135-145); eGFR 14.38
[2023-12-31 08:00] VITALS: BP 131/69
[2023-12-31] MEDS: OSCAL 500 + D 500 MG PO ×2 (08:38→17:54)
[2023-12-31] MEDS: CLARITIN 10 MG PO (08:38)
[2023-12-31] MEDS: NEURONTIN 300 MG PO (08:38)
[2023-12-31] MEDS: FIBERCON 625 MG PO ×2 (08:38→20:06)
[2023-12-31] MEDS: PROTONIX 40 MG PO (08:38)
[2023-12-31] MEDS: VISBIOME 1 CAP PO (08:38)
[2023-12-31] MEDS: FLOMAX 0.400000000000000022 MG PO (08:38)
[2023-12-31] MEDS: VITAMIN B-12 100 MCG PO (08:38)
[2023-12-31] MEDS: MAGNESIUM OXIDE 500 MG PO ×2 (08:38→17:54)
[2023-12-31] MEDS: ASPIR LOW (ENTERIC COATED) 81 MG PO (08:38)
[2023-12-31] MEDS: NAMENDA 10 MG PO ×2 (08:39→20:06)
[2023-12-31] MEDS: THERAGRAN 1 TABLET PO (08:39)
[2023-12-31] MEDS: ZOLOFT 50 MG PO (08:39)
[2023-12-31] MEDS: HYDROPHOR 1 APPLIC TOPICAL (08:39)
[2023-12-31] MEDS: DESENEX/MITRAZOL/ZEASORB 1 APPLIC TOPICAL ×2 (08:39→20:07)
[2023-12-31] MEDS: ZINC OXIDE OINTMENT 1 APPLIC TOPICAL ×2 (08:40→21:28)
[2023-12-31 09:14] LABS: Anti Streptolysin Negative (Negative)
[2023-12-31 11:14] VITALS: BP 108/54; PULSE 68; O2SAT 99
[2023-12-31] MEDS: ELIQUIS 5 MG PO ×2 (11:48→20:06)
[2023-12-31 12:05] VITALS: BP 109/55; PULSE 69; O2SAT 96
--- NOTE | 2023-12-31 12:12 | CM ---
TC from daughter Holley requesting and updated.
CM updated daughter that patient is not for d/c today due ot lab values.
Once patient is medically stable CM will will see if bed available ([facility]) and request insurance authorization.
Patient now has Kaba catheter.
Continue to monitor lab values.
PT/OT- skilled rehab.
Plan; Skilled rehab once bed available and insurance [facility] obtained ([facility])
--- NOTE | 2023-12-31 12:38 | W.PN.HOSP.TC ---
Today's Communication/Plan
-
trend bmp
hold remeron/gabapentin/PPI
nephro recs
oob
Assessment / Plan
Assessment / Plan
#MARJORIE likely multifactorial in the setting of renal stone status post stent placement, prerenal versus antibiotics vs. AIN
FENA indeterminant. 3% eosinophils noted
Did receive gentamicin earlier in hospitalization
s/p NS without much improvement
Cr uptrended. await to plateau.
Bladder scan ordered and require prasad catheter placement due to severe retention/criticial I&O
Renal bladder US without hydro.
Hold PPI too.
appreciate nephro recs
#Acute bilateral pulmonary embolism with mild right heart strain
With recent hospitalization ? Provoked due to decreased mobility
Started patient on heparin infusion and was transitioned to Eliquis 10 mg bid x 7 days completed course and now on 5mg bid to follow
Right lower extremity Doppler No sonographic evidence for right lower extremity deep venous thrombosis.
Left LE: No sonographic evidence for left lower extremity deep venous thrombosis.
ECHO limited study as patient was argumentative. EF 55 to 60%. Diastolic function indeterminate. Right heart pressures could not be determined. Normal right ventricular size. Normal right ventricular systolic function.
appreciate input from pulmonary
#Left foot fracture with Ortho boot
Venous Doppler negative for DVT
Per daughter patient is able to ambulate with a walker and improved
#Recent obstructive renal stone status post ureteral stent placement at [place] by Dr. Gill
#Polymicrobial urinary tract infection with VRE Enterococcus and Pseudomonas
Culture data noted with clancy resistance to VRE and only susceptible to gentamicin and oral linezolid only.
s/p cefepime course. Gentamycin 400 mg daily has been ordered and patient completed course. Did receive 1 dose of oritavancin.
appreciate ID input
dc to [facility] with planned follow up of renal stone
Per Dr. Sy, feels very strongly that pt should follow up with usual [facility]rologist ([facility]) post dc for stent and stone removal. Timing will be complicated, as should be treated for PE prior to stopping OAC in order to remove stent/stone.
As per dgt, Carolina, this will be done at [facility]
#Dementia
Continue with memantine and donepezil
Unclear if with behavioral disturbances
#Mood disorder
Continue with sertraline.
#Lethargy in morning
-holding remeron and gabapentin
#GERD
Hold PPI as concern for AIN.
Neuropathy
History of sciatica
PT/OT/Tylenol
Hypokalemia
replete/monitor
PT/OT ordered recs SNF once ready.
DVT ppx-Eliquis
Pt will need follow up with prior urologist, Dr. Saab post discharge. Discussed with Dr. Armando who recommends pulmonary evaluation prior to undergoing lithotripsy with stent extraction, where Eliquis will be 6-12 weeks of therapy, then would
have to be placed on hold and bridging with Heparin, stopping immediately prior to procedure would have to be utilized. The exact management of the stone intervention will be deferred to Dr. Saab. Plan is to dc to SNF, weekly UA with C&S would
be appropriate until the stone can be extracted
d.w with daughter Holley over the phone in details.
Anticipated Discharge: > 48 hours
Subjective/Interval History
-
Date of Service: December 31, 2023
required prasad catheter placement overnight
ate her breakfast with assistance
wants to go back to sleep
Objective Data
-
Labs:
Laboratory Results
12/31/23
05:12
Sodium 138
Potassium 4.0
Chloride 108 H
Carbon Dioxide 28
BUN 29 H
Creatinine 3.1 H
Glucose 89
Calcium 9.0
Vital Signs:
Vital Signs
Temp Pulse Resp BP Pulse Ox
97.4 F 90 24 131/69 97
12/31/23 08:00 12/31/23 08:00 12/31/23 08:00 12/31/23 08:00 12/31/23 08:00
I&O
12/30/23 12/31/23 01/01/24
06:59 06:59 06:59
Intake Total 360 / 360 1140 / 1140
Output Total 1000 / 1000
Balance 360 / 360 140 / 140
Physical Exam
-
General: Well Developed, Well Nourished, No Apparent Distress and Appears Chronically Ill
HEENT: Normocephalic, Atraumatic and Moist Mucous Membranes
Respiratory: Clear to Auscultation; Negative Wheezes, Rales or Rhonchi
Cardiac: Regular Rhythm and S1/S2
GI: Soft, Nontender and Nondistended
Genito-urinary: Prasad
Musculoskeletal: No Clubbing, No Cyanosis and No Edema
Skin: Warm
Psych: Calm and Apparent Dementia
Data Reviewed
-
Total Time Spent with Patient (in minutes): 55
--- NOTE | 2023-12-31 15:16 | W.PN.NEPH.PH ---
Today's Communication / Plan
-
maintain prasad
follow labs
Assessment/Plan
-
Impression:
MARJORIE
Acute bilateral pulmonary embolism
Left foot fracture with Ortho boot
Complicated VRE UTI (status post gentamicin therapy)
History of recent right ureter stent placement at [facility] for obstructing right nephrolith
Dementia
Depression
Bladder instability
Neuropathy
Plan:
MARJORIE:
-Suspect due to contrast administration from CT in combination with gentamicin administration
-off cefepime, PPI, Gentamicin, positive urine eosinophils of 3% likely consistent with drug-induced acute interstitial nephritis,
-UA with UTI, Fractional excretion of sodium not consistent with prerenal stimulus
-s/p prasad today with mild hematuria and non oliguric
-cr cont to increase, No acute dialysis recommendation at this time
no hydro on renal US , non obst stone
-Hold any further nephrotoxins, no NSAIDs
-Volume status difficult to ascertain given gross body habitus
BP are stable
monitor labs for now
-
-
Date of Service: December 31, 2023
CC / HPI / ROS
-
Chief Complaint:
MARJORIE
History of Present Illness:
cr up at 3.1, k normal
BP stable, non oliguric, prasad placed for retention
no fever
Review of Systems:
no cp or sob at rest
confused baseline, limited history
Labs
-
Labs:
WBC 7.3 10^3/uL (4.8-10.8) 12/28/23 06:09
RBC 4.08 10^6/uL (4.20-5.40) L 12/28/23 06:09
Hgb 13.0 g/dL (12.0-16.0) 12/28/23 06:09
Hct 38.8 % (37.0-47.0) 12/28/23 06:09
Plt Count 197 10^3/uL (130-400) 12/28/23 06:09
Sodium 138 mmol/L (135-145) 12/31/23 05:12
Potassium 4.0 mmol/L (3.5-5.1) 12/31/23 05:12
Chloride 108 mmol/L (98-107) H 12/31/23 05:12
Carbon Dioxide 28 mmol/L (22-30) 12/31/23 05:12
BUN 29 mg/dl (7-17) H 12/31/23 05:12
Creatinine 3.1 mg/dL (0.6-1.0) H 12/31/23 05:12
eGFR 14.38 12/31/23 05:12
Glucose 89 mg/dl (70-99) 12/31/23 05:12
Calcium 9.0 mg/dl (8.4-10.2) 12/31/23 05:12
Albumin 4.1 g/dl (3.5-5.0) 12/18/23 20:01
Physical Exam
-
Vital Signs:
Vital Signs
Temp Pulse Resp BP Pulse Ox
97.4 F 90 24 131/69 97
12/31/23 08:00 12/31/23 08:00 12/31/23 08:00 12/31/23 08:00 12/31/23 08:00
Cardiovascular:: Regular rate and rhythm
Respiratory:: Bilateral: CTA
Lung Excursion:: Normal
Abdomen:: Nontender and Soft
Extremity Edema:: +1: Bilateral:
Prasad Catheter: Yes
[2023-12-31 16:00] VITALS: BP 103/56
[2023-12-31 16:06] VITALS: BP 103/56
[2023-12-31] MEDS: ARICEPT 10 MG PO (20:06)
[2023-12-31 23:47] VITALS: BP 130/57
[2024-01-01 07:09] LABS: % Basophils 0.6 % (0-2); % Eosinophils 4.3 % (0-6); % Immature Granulocytes 0.4 % (0-0.5); % Lymphocytes 24.2 % (20.5-51.1); % Monocytes 5.9 % (1.7-9.3); % Neutrophils 64.6 % (42.2-75.2); Absolute Basophils 0.1 10^3/uL (0-0.2); Absolute Eosinophils 0.4 10^3/uL (0-0.7); Absolute Monocytes 0.5 10^3/uL (0.1-0.6); Absolute Neutrophils 5.4 10^3/uL (1.4-6.5); Hematocrit 34.3 % (37.0-47.0); Hemoglobin 11.8 g/dL (12.0-16.0); Mean Corp Hgb Conc. 34.4 g/dL (33.0-37.0); Mean Platelet Volume 10.7 fL (7.4-10.4); Nucleated Red Blood Cells % 0 %; Platelet Count 178 10^3/uL (130-400); Red Blood Cell Count 3.69 10^6/uL (4.20-5.40); Red Cell Dist. Width 13.5 % (11.5-14.5); White Blood Cell Count 8.3 10^3/uL (4.8-10.8)
[2024-01-01 07:28] LABS: Blood Urea Nitrogen 32 mg/dl (7-17); Calcium 9.6 mg/dl (8.4-10.2); Carbon Dioxide 26 mmol/L (22-30); Chloride 108 mmol/L (98-107); Estimated Creatinine Clearance 14 ml/min; Glucose 103 mg/dl (70-99); Potassium 3.4 mmol/L (3.5-5.1); Sodium 141 mmol/L (135-145); eGFR 12.02
[2024-01-01 07:30] VITALS: BP 134/68
[2024-01-01] MEDS: CLARITIN 10 MG PO (08:26)
[2024-01-01] MEDS: FLOMAX 0.400000000000000022 MG PO (08:26)
[2024-01-01] MEDS: VITAMIN B-12 100 MCG PO (08:26)
[2024-01-01] MEDS: VISBIOME 1 CAP PO (08:26)
[2024-01-01] MEDS: ZOLOFT 50 MG PO (08:26)
[2024-01-01] MEDS: ASPIR LOW (ENTERIC COATED) 81 MG PO (08:26)
[2024-01-01] MEDS: FIBERCON 625 MG PO ×2 (08:26→20:22)
[2024-01-01] MEDS: OSCAL 500 + D 500 MG PO ×2 (08:26→15:48)
[2024-01-01] MEDS: MAGNESIUM OXIDE 500 MG PO ×2 (08:26→15:48)
[2024-01-01] MEDS: THERAGRAN 1 TABLET PO (08:28)
[2024-01-01] MEDS: NAMENDA 10 MG PO ×2 (08:28→20:22)
[2024-01-01] MEDS: ELIQUIS 5 MG PO ×2 (08:28→20:22)
[2024-01-01] MEDS: DESENEX/MITRAZOL/ZEASORB 1 APPLIC TOPICAL ×2 (08:31→21:10)
[2024-01-01] MEDS: HYDROPHOR 1 APPLIC TOPICAL (08:31)
[2024-01-01] MEDS: ZINC OXIDE OINTMENT 1 APPLIC TOPICAL ×2 (08:32→21:10)
--- NOTE | 2024-01-01 09:44 | PTCARENOTE ---
Patient received awake and alert, forgetful at times. Able to follow simple commands. Needs assist with meals , appetite good , no swallowing difficulty noted.
[2024-01-01 10:13] LABS: Magnesium 2.7 mg/dl (1.6-2.3)
[2024-01-01 10:43] LABS: Urine Sodium 112 mmol/L (30-90)
--- NOTE | 2024-01-01 11:15 | W.PN.HOSP.TC ---
Today's Communication/Plan
-
Hold gabapentin/ppi/remeron
Trend cr
monitor urine
nephro recs
Assessment / Plan
Assessment / Plan
#MARJORIE likely multifactorial in the setting of renal stone status post stent placement, prerenal versus antibiotics vs. AIN vs. ARVIND
FENA indeterminant. 3% eosinophils noted
Did receive gentamicin earlier in hospitalization
s/p NS without much improvement
Cr uptrended. await to plateau.
Bladder scan ordered and require prasad catheter placement due to severe retention/critical I&O
Renal bladder US without hydro.
Hold PPI too.
Repeat FENA on 12/31 with intrinsic renal pattern
Mild hematuria noted.
appreciate nephro recs
#Acute bilateral pulmonary embolism with mild right heart strain
With recent hospitalization ? Provoked due to decreased mobility
Started patient on heparin infusion and was transitioned to Eliquis 10 mg bid x 7 days completed course and now on 5mg bid to follow
Right lower extremity Doppler No sonographic evidence for right lower extremity deep venous thrombosis.
Left LE: No sonographic evidence for left lower extremity deep venous thrombosis.
ECHO limited study as patient was argumentative. EF 55 to 60%. Diastolic function indeterminate. Right heart pressures could not be determined. Normal right ventricular size. Normal right ventricular systolic function.
appreciate input from pulmonary
#Left foot fracture with Ortho boot
Venous Doppler negative for DVT
Per daughter patient is able to ambulate with a walker and improved
#Recent obstructive renal stone status post ureteral stent placement at [facility] by Dr. Gill
#Polymicrobial urinary tract infection with VRE Enterococcus and Pseudomonas
Culture data noted with clancy resistance to VRE and only susceptible to gentamicin and oral linezolid only.
s/p cefepime course. Gentamycin 400 mg daily has been ordered and patient completed course. Did receive 1 dose of oritavancin.
appreciate ID input
dc to SNF with planned follow up of renal stone
Per Dr. Sy, feels very strongly that pt should follow up with usual Urologist ([facility]) post dc for stent and stone removal. Timing will be complicated, as should be treated for PE prior to stopping OAC in order to remove stent/stone.
As per dgt, Carolina, this will be done at [facility]
#Dementia
Continue with memantine and donepezil
Unclear if with behavioral disturbances
#Mood disorder
Continue with sertraline.
#Lethargy
-holding remeron and gabapentin
-Improved with holding above meds.
#GERD
Hold PPI as concern for AIN.
Neuropathy
History of sciatica
PT/OT/Tylenol
Hypokalemia
replete/monitor
PT/OT ordered recs SNF once ready.
DVT ppx-Eliquis
Pt will need follow up with prior urologist, Dr. Saab post discharge. Discussed with Dr. Armando who recommends pulmonary evaluation prior to undergoing lithotripsy with stent extraction, where Eliquis will be 6-12 weeks of therapy, then would
have to be placed on hold and bridging with Heparin, stopping immediately prior to procedure would have to be utilized. The exact management of the stone intervention will be deferred to Dr. Saab. Plan is to dc to SNF, weekly UA with C&S would
be appropriate until the stone can be extracted
d.w with daughter Holley over the phone in details.
Anticipated Discharge: > 48 hours
Subjective/Interval History
-
Date of Service: January 01, 2024
More awake this morning
waiting for breakfast
Objective Data
-
Labs:
Laboratory Results
01/01/24
06:22
WBC 8.3
Hgb 11.8 L
Hct 34.3 L
Plt Count 178
Sodium 141
Potassium 3.4 L
Chloride 108 H
Carbon Dioxide 26
BUN 32 H
Creatinine 3.6 H
Glucose 103 H
Calcium 9.6
Vital Signs:
Vital Signs
Temp Pulse Resp BP Pulse Ox
98.1 F 72 17 134/68 97
01/01/24 07:30 01/01/24 07:30 01/01/24 07:30 01/01/24 07:30 01/01/24 07:30
I&O
12/31/23 01/01/24 01/02/24
06:59 06:59 06:59
Intake Total 1140 / 1140 1440 / 1440
Output Total 1000 / 1000 1300 / 1300
Balance 140 / 140 140 / 140
Physical Exam
-
General: Well Developed, Well Nourished, No Apparent Distress and Appears Chronically Ill
HEENT: Normocephalic, Atraumatic and Moist Mucous Membranes
Respiratory: Clear to Auscultation; Negative Wheezes, Rales or Rhonchi
Cardiac: Regular Rhythm and S1/S2
GI: Soft, Nontender and Nondistended
Genito-urinary: Prasad (Blood tinged urine. )
Musculoskeletal: No Clubbing, No Cyanosis and No Edema
Skin: Warm
Psych: Calm and Apparent Dementia
Data Reviewed
-
Total Time Spent with Patient (in minutes): 55
--- NOTE | 2024-01-01 11:28 | CM ---
Patient seen bedside with daughter Carolina.
BUN/Cr 32 and 3.6
PT/OT recommending skilled rehab.
They would still like [facility] when medically stable.
Patient will need [facility] auth.
If bed available at [place]
Facility [facility], HOLLY# [id number]
Accepting MD: Dr Do NPI# [id number]
real estate salesperson-Cecilia [phone]
Plan: skilled rehab when medically stable, bed available and insurance auth obtained.
[2024-01-01 15:22] VITALS: BP 108/68
--- NOTE | 2024-01-01 15:23 | W.PN.NEPH.PH ---
Today's Communication / Plan
-
follow labs , suspect cr reaching peak
Assessment/Plan
-
Impression:
MARJORIE
Acute bilateral pulmonary embolism
Left foot fracture with Ortho boot
Complicated VRE UTI (status post gentamicin therapy)
History of recent right ureter stent placement at [facility] for obstructing right nephrolith
Dementia
Depression
Bladder instability
Neuropathy
Plan:
MARJORIE:
-Suspect due to contrast administration from CT in combination with gentamicin administration
-off cefepime, PPI, Gentamicin, positive urine eosinophils of 3% likely consistent with drug-induced acute interstitial nephritis,
-UA with UTI, Fractional excretion of sodium not consistent with prerenal stimulus even on repeat
-s/p prasad for retention with mild hematuria and remains non oliguric
-cr cont to increase 3.6,no clear etiology of rise in cr specially culprit meds have been on hold
if cr to increase could get repeat renal US, last done on 12/29 non obst caliculi
reaplce k
No acute dialysis recommendation at this time
avoid nephrotoxins, no NSAIDs
-Volume status difficult to ascertain given gross body habitus
BP are stable
monitor labs for now
d/w nursing
-
-
Date of Service: January 01, 2024
CC / HPI / ROS
-
Chief Complaint:
MARJORIE
History of Present Illness:
cr up at 3.6, k low 3.4
BP stable, non oliguric, prasad placed for retention on 12/30
no fever
Review of Systems:
no cp or sob at rest
improving confusion per staff
less jerky movements
no c/o itching
Labs
-
Labs:
WBC 8.3 10^3/uL (4.8-10.8) 01/01/24 06:22
RBC 3.69 10^6/uL (4.20-5.40) L 01/01/24 06:22
Hgb 11.8 g/dL (12.0-16.0) L 01/01/24 06:22
Hct 34.3 % (37.0-47.0) L 01/01/24 06:22
Plt Count 178 10^3/uL (130-400) 01/01/24 06:22
Sodium 141 mmol/L (135-145) 01/01/24 06:22
Potassium 3.4 mmol/L (3.5-5.1) L 01/01/24 06:22
Chloride 108 mmol/L (98-107) H 01/01/24 06:22
Carbon Dioxide 26 mmol/L (22-30) 01/01/24 06:22
BUN 32 mg/dl (7-17) H 01/01/24 06:22
Creatinine 3.6 mg/dL (0.6-1.0) H 01/01/24 06:22
eGFR 12.02 01/01/24 06:22
Glucose 103 mg/dl (70-99) H 01/01/24 06:22
Calcium 9.6 mg/dl (8.4-10.2) 01/01/24 06:22
Albumin 4.1 g/dl (3.5-5.0) 12/18/23 20:01
Physical Exam
-
Vital Signs:
Vital Signs
Temp Pulse Resp BP Pulse Ox
98.1 F 71 18 108/68 97
01/01/24 15:22 01/01/24 15:22 01/01/24 15:22 01/01/24 15:22 01/01/24 15:22
Cardiovascular:: Regular rate and rhythm
Respiratory:: Bilateral: CTA
Lung Excursion:: Normal
Abdomen:: Nontender and Soft
Extremity Edema:: None: Bilateral:
Prasad Catheter: Yes
[2024-01-01] MEDS: KCL 20 MEQ PO (15:58)
--- NOTE | 2024-01-01 20:14 | PTCARENOTE ---
Pt is belligerent, yelling and cursing at staff. Attempting to reorient, without success. Berating and making demands towards RN. Daughter Holley called at pt's instruction. Pt nasty towards daughter on the telephone, hung up on daughter.
[2024-01-01] MEDS: ARICEPT 10 MG PO (20:22)
--- NOTE | 2024-01-01 22:52 | PTCARENOTE ---
Addendum entered by Abida Cartwright RN 01/02/24 01:55:
Pt verbalizing 'wanting to , wishing to fall asleep and not wake up' PEDIATRICIAN/MEDICAL DOCTOR and RN supervisor machine workers aware. Psych consult placed and Medsitter to be obtained.
Original Note:
Pt refusing vital signs, care, turns, and removing O2. Will continue to reattempt.
[2024-01-02] VITALS (7 sets, daily range): BP systolic 93–147; BP diastolic 59–89; PULSE 64; O2SAT 96–97; BMI 40.0
--- NOTE | 2024-01-02 00:20 | RR ---
A Rapid Response was called on this patient, please see Rapid Response form.
Pt found face down on floor by PCT passing room. Pt face down near bathroom with SCDs in place, bleeding noted from face. Assisted back to be x4. Bleeding noted to be coming from nares, after cleansing face no further bleeding noted. Pt denies
headache, pain, dizziness, nausea. Neuro check performed, WNL. CT scan studies ordered, transported in bed.
[2024-01-02 00:25] LABS: Glucose - Point of Care 119 mg/dl (70-99)
--- NOTE | 2024-01-02 00:47 | W.PN.UPDATE ---
Addendum entered and electronically signed by ALDA Wood 01/02/24 01:12:
ct head negative for skull fx, or bleed
no nasal fx or other fx of facial bones
Original Note:
Update Note
Progress Note Update
0020 pt unwitnessed all
pt found on floor by bathroom with blood on floor. At first it was unclear where blood was coming. With assist of multiple staff members, pt lifted into bed. After cleaning pt up, blood was noted to be epistaxis. Once cleaned up, no further
bleeding noted. Will closely monitor at pt is on eliquis. Nose palpated, pt denies pain. Does appear swollen. Can have ice pack.
PT doesn't think she got dizzy. She doesn't remember why she got oob without assistance. but was connected to SCD, so likely became tangled.
bp 100/68 HR 80
currently neurochecks normal. moves all extremities. Denies pain anywhere.
does keep saying 'let me just ' and ' i wish i would fall asleep and not wake up'
Per nurse- even prior to fall moods very labile, goes from begin agitated and beligerant to calm and cooperative.
Plan:
Check CT head and facial bones stat to r/o head bleed and nasal fx
Repeat ct head in 6 hr as pt on eliquis
ice back to nose if she can tolerate.
check hh in am
medsitter and bed alarm
depending on CT results may need to hold eliquis
neuro checks : q 2 hr x2, then q4h x 24 hr---call Md for neuro changes
psych consult for labile mood , and wanting to ''
[2024-01-02 07:05] LABS: Hematocrit 32.2 % (37.0-47.0); Hemoglobin 11.4 g/dL (12.0-16.0)
[2024-01-02] MEDS: VITAMIN B-12 100 MCG PO (07:38)
[2024-01-02] MEDS: ASPIR LOW (ENTERIC COATED) 81 MG PO (07:38)
[2024-01-02] MEDS: THERAGRAN 1 TABLET PO (07:38)
[2024-01-02] MEDS: CLARITIN 10 MG PO (07:38)
[2024-01-02] MEDS: VISBIOME 1 CAP PO (07:38)
[2024-01-02] MEDS: OSCAL 500 + D 500 MG PO ×2 (07:38→16:32)
[2024-01-02] MEDS: MAGNESIUM OXIDE 500 MG PO ×2 (07:38→16:32)
[2024-01-02] MEDS: FLOMAX 0.400000000000000022 MG PO (07:38)
[2024-01-02] MEDS: ELIQUIS 5 MG PO ×2 (07:38→20:20)
[2024-01-02] MEDS: HYDROPHOR 1 APPLIC TOPICAL (07:39)
[2024-01-02] MEDS: DESENEX/MITRAZOL/ZEASORB 1 APPLIC TOPICAL ×2 (07:39→20:20)
[2024-01-02] MEDS: ZOLOFT 50 MG PO (07:45)
[2024-01-02] MEDS: FIBERCON 625 MG PO ×2 (07:45→20:20)
[2024-01-02] MEDS: NAMENDA 10 MG PO ×2 (07:46→20:20)
[2024-01-02] MEDS: TYLENOL 650 MG PO (07:55)
--- NOTE | 2024-01-02 08:36 | PN.CDI ---
CDI
- -
CDI:
Physician Documentation Request
Admit Date: 12/19/23 08:12
Dear Doctor Chely,
Clinical Indicators:
Patient admitted with acute bilateral pulmonary embolism.
12/31 PN, 'Lethargy-holding remeron and gabapentin -Improved with holding above meds.'
12/31 Nephrology PN, 'MARJORIE..cr cont to increase 3.6...improving confusion per staff less jerky movements '
Based on the above, could you clarify the most likely etiology of the confusion/altered mental status:
Toxic Metabolic Encephalopathy
Lethargy only
Other
Use of terms such as suspected, likely, concern for, or probable (associated with a specific diagnosis that is being evaluated, monitored, or treated as if it exists) are acceptable and can be coded in the inpatient setting, when documented at the
time of discharge.
Thank you,
MAHIN Wren RN
CDI Specialist
available via tiger text
Please use your independent medical judgment in providing your response.
[2024-01-02] MEDS: ZINC OXIDE OINTMENT TOPICAL (09:00)
[2024-01-02 09:21] LABS: Blood Urea Nitrogen 31 mg/dl (7-17); Calcium 9.6 mg/dl (8.4-10.2); Carbon Dioxide 29 mmol/L (22-30); Chloride 105 mmol/L (98-107); Estimated Creatinine Clearance 12 ml/min; Glucose 98 mg/dl (70-99); Potassium 3.2 mmol/L (3.5-5.1); Sodium 139 mmol/L (135-145); eGFR 10.92
--- NOTE | 2024-01-02 09:29 | PTCARENOTE ---
Patient's daughter was called this am and informed about fall last night. Patient's daughter is asking about restarting Remeron as per daughter patient can sun down at night and become angry and try to leave. RN informed daughter that she will
discuss with doctor.
--- NOTE | 2024-01-02 12:09 | W.PN.NEPH.PH ---
Today's Communication / Plan
-
500 cc normal saline to be given
Follow BMP
No acute HD indication yet
Maintain Prasad
Replete potassium
Assessment/Plan
-
Impression:
MARJORIE
Acute bilateral pulmonary embolism
Left foot fracture with Ortho boot
Complicated VRE UTI (status post gentamicin therapy)
History of recent right ureter stent placement at [facility] for obstructing right nephrolith
Dementia
Depression
Bladder instability
Neuropathy
Plan:
MARJORIE:
-Continues to worsen with creatinine up to 3.9 but remains nonoliguric
-Hemodynamically labile
-Will provide 500 cc normal saline
-Suspect due to contrast administration from CT in combination with gentamicin administration
-off cefepime, PPI, Gentamicin, positive urine eosinophils of 3% likely consistent with drug-induced acute interstitial nephritis,
-UA with UTI, Fractional excretion of sodium not consistent with prerenal stimulus even on repeat
-s/p prasad for retention with mild hematuria and remains non oliguric
-
if cr to increase could get repeat renal US, last done on 12/29 non obst caliculi
reaplce k
No acute dialysis recommendation at this time
avoid nephrotoxins, no NSAIDs
-Volume status difficult to ascertain given gross body habitus
BP are stable
monitor labs for now
d/w nursing
-
-
Date of Service: January 02, 2024
CC / HPI / ROS
-
Chief Complaint:
MARJORIE
History of Present Illness:
cr up at 3.9
Blood pressure labile,
prasad placed for retention on 12/30
no fever
Potassium low at 3.2
Review of Systems:
no cp or sob at rest
Nonoliguric via Prasad
improving confusion per staff
less jerky movements
no c/o itching
Labs
-
Labs:
WBC 8.3 10^3/uL (4.8-10.8) 01/01/24 06:22
RBC 3.69 10^6/uL (4.20-5.40) L 01/01/24 06:22
Hgb 11.4 g/dL (12.0-16.0) L 01/02/24 05:53
Hct 32.2 % (37.0-47.0) L 01/02/24 05:53
Plt Count 178 10^3/uL (130-400) 01/01/24 06:22
Sodium 139 mmol/L (135-145) 01/02/24 08:06
Potassium 3.2 mmol/L (3.5-5.1) L 01/02/24 08:06
Chloride 105 mmol/L (98-107) 01/02/24 08:06
Carbon Dioxide 29 mmol/L (22-30) 01/02/24 08:06
BUN 31 mg/dl (7-17) H 01/02/24 08:06
Creatinine 3.9 mg/dL (0.6-1.0) H 01/02/24 08:06
eGFR 10.92 01/02/24 08:06
Glucose 98 mg/dl (70-99) 01/02/24 08:06
Calcium 9.6 mg/dl (8.4-10.2) 01/02/24 08:06
Albumin 4.1 g/dl (3.5-5.0) 12/18/23 20:01
Physical Exam
-
Vital Signs:
Vital Signs
Temp Pulse Resp BP Pulse Ox
97.9 F 68 18 108/80 96
01/02/24 07:43 01/02/24 07:43 01/02/24 07:43 01/02/24 07:43 01/02/24 07:43
Cardiovascular:: Regular rate and rhythm
Respiratory:: Bilateral: Coarse
Lung Excursion:: Normal
Abdomen:: Nontender and Soft
Bowel Sounds:: Decreased
Extremity Edema:: None: Bilateral:
Prasad Catheter: Yes
--- NOTE | 2024-01-02 12:11 | W.PN.HOSP.TC ---
Today's Communication/Plan
-
Fluid challenge
trend cr
Tele sitter
Assessment / Plan
Assessment / Plan
#MARJORIE likely multifactorial in the setting of renal stone status post stent placement, prerenal versus antibiotics vs. AIN vs. ARVIND
FENA indeterminant. 3% eosinophils noted
Did receive gentamicin earlier in hospitalization
s/p NS without much improvement
Cr uptrended to 3.9. await to plateau.
Bladder scan ordered and require prasad catheter placement due to severe retention/critical I&O
Renal bladder US without hydro.
Hold PPI too.
Repeat FENA on 12/31 with intrinsic renal pattern
Mild hematuria noted.
Fluid bolus challenge today
appreciate nephro recs
#Acute bilateral pulmonary embolism with mild right heart strain
With recent hospitalization ? Provoked due to decreased mobility
Started patient on heparin infusion and was transitioned to Eliquis 10 mg bid x 7 days completed course and now on 5mg bid to follow
Right lower extremity Doppler No sonographic evidence for right lower extremity deep venous thrombosis.
Left LE: No sonographic evidence for left lower extremity deep venous thrombosis.
ECHO limited study as patient was argumentative. EF 55 to 60%. Diastolic function indeterminate. Right heart pressures could not be determined. Normal right ventricular size. Normal right ventricular systolic function.
appreciate input from pulmonary
#Left foot fracture with Ortho boot
Venous Doppler negative for DVT
Per daughter patient is able to ambulate with a walker and improved
#Recent obstructive renal stone status post ureteral stent placement at [place] [facility] by Dr. Gill
#Polymicrobial urinary tract infection with VRE Enterococcus and Pseudomonas
Culture data noted with clancy resistance to VRE and only susceptible to gentamicin and oral linezolid only.
s/p cefepime course. Gentamycin 400 mg daily has been ordered and patient completed course. Did receive 1 dose of oritavancin.
appreciate ID input
dc to SNF with planned follow up of renal stone
Per Dr. Sy, feels very strongly that pt should follow up with usual Urologist ([facility]) post dc for stent and stone removal. Timing will be complicated, as should be treated for PE prior to stopping OAC in order to remove stent/stone.
As per dgtCarolina, this will be done at [facility]
#Dementia
# Toxic metabolic encephalopathy likely secondary to delirium
Continue with memantine and donepezil
Unclear if with behavioral disturbances
Psych conulted
# Overnight fall on 12/31
-CT head initial negative and 6 hours later negative for acute pathology
-CT facial negative
-Telemetry sitter ordered
-Fall precaution ongoing-sensor position changed to pt back
#Mood disorder
Continue with sertraline and restart remeron
#Lethargy
-Improved with holding gabapentin
#GERD
Hold PPI as concern for AIN.
Neuropathy
History of sciatica
PT/OT/Tylenol
Hypokalemia
replete/monitor
PT/OT ordered recs SNF once ready.
DVT ppx-Eliquis
Pt will need follow up with prior urologist, Dr. Saab post discharge. Discussed with Dr. Armando who recommends pulmonary evaluation prior to undergoing lithotripsy with stent extraction, where Eliquis will be 6-12 weeks of therapy, then would
have to be placed on hold and bridging with Heparin, stopping immediately prior to procedure would have to be utilized. The exact management of the stone intervention will be deferred to Dr. Saab. Plan is to dc to SNF, weekly UA with C&S would
be appropriate until the stone can be extracted
d.w with daughter Holley over the phone in details.
Anticipated Discharge: > 48 hours
Subjective/Interval History
-
Date of Service: January 02, 2024
Overnight events noted
This morning patient awake remains confused
Denies any headache or facial pain
Remains with Prasad catheter
Objective Data
-
Labs:
Laboratory Results
01/02/24 01/02/24
05:53 08:06
Hgb 11.4 L
Hct 32.2 L
Sodium Cancelled 139
Potassium Cancelled 3.2 L
Chloride Cancelled 105
Carbon Dioxide Cancelled 29
BUN Cancelled 31 H
Creatinine Cancelled 3.9 H
Glucose Cancelled 98
Calcium Cancelled 9.6
Vital Signs:
Vital Signs
Temp Pulse Resp BP Pulse Ox
97.9 F 68 18 108/80 96
01/02/24 07:43 01/02/24 07:43 01/02/24 07:43 01/02/24 07:43 01/02/24 07:43
I&O
01/01/24 01/02/24 01/03/24
06:59 06:59 06:59
Intake Total 1440 / 1440 600 / 600
Output Total 1300 / 1300 1150 / 1150
Balance 140 / 140 -550 / -550
Data Reviewed
-
Total Time Spent with Patient (in minutes): 58
[2024-01-02] MEDS: NSS 500 IV (12:19)
[2024-01-02] MEDS: KLOR-CON 20 MEQ PO (12:19)
--- NOTE | 2024-01-02 14:26 | CON.MD ---
Consultation - Medical
-
patient seen chart reviewed. discussed with nursing who reports patient is very cooperative and more pleasant today. sister, Geena, at bedside. this consult ordered by patient after being found down last night on the floor with a bloody nose said
'let me '. the patient has endured years of poor health (over ten years) and has been in memory care for the past eight years or so. her over ten years ago. he had taken care of her prior. the patient was unaware that she was
taking two antidepressants zoloft 50 mg and remeron 7.5 mg. sister said she had only noted her sister to be depressed recently when sister confided in her that sometimes she would rather be given her many medical problems but patient and
sister both say she would never take her own life. the patient sleeps too much she reports. she has no energy but given her medical issues that is to be expected at this point. she does not enjoy much but she said she enjoyed the conversation we
had today and talking with her family . she is not suicidal. there is nothing to suggest psychosis. prior to recently her only psych rx was for dementia.she is taking aricept 10 mg daily and namenda 28 mg daily
past psych hx see above
medical hx patient was recently rx at [facility] for kidney stone. she has a stent in place. she was brought here from [facility] for weakness abd pain and vomiting and was found to be hypoxic. she also has a PE. foot fx. the patient is being rx as
well for UTI. noted bc of zoloft and remeron could not use linezolid alternative antibiotics were recommended. she also has hx of crf w creatinine almost four, gerd neuropathy (takes gabapentin) hepatic steatosis pancreatic lipomatosis
diverticulosis hx sigmoidectomy and cholecystectomy
fh dementia
substance abuse none
social hx patient is one of six children. she has two kids of her own and grandkids . family is supportive. sister describes a wonderful childhood with a very attentive mother. over ten years ago
mse alert and cooperative. patient appeared very sleepy at times then it would be clear she was indeed listening and she would smile and sometimes comment. mood was neutral. she admitted she did have thoughts at times it would be easier to
and she was tired. she was not suicidal. affect okay intelligence average but impaired by neurocognitive issues. insight judgment fair.
dx unspecified depression superimposed on depression
plan would dc remeron bc of c/o 'sleepy all the time.' increase zoloft to 75 mg . it may help w depression however patient seems to be realistic regarding the magnitude of medical issues and her lack of a long future most likely. we discussed
whether she might be appropriate for hospice . sister asked whether hospitalist might call her daughters to discuss whether this might be a reasonable way to go. i do not see any imminent risk of suicidality here. staff raised issue of 'mood
lability'. sister told me patient was always the most outspoken member of the family and would always speak her mind. i would suspect that what we are seeing is more of a character trait rather than eg the affective labilify of a mood disorder and
she did not strike me at this point as having the behavioral dyscontrol of dementia...at least when i saw her she was quite appropriate psych will check in on her tomorrow.
[2024-01-02] MEDS: ZINC OXIDE OINTMENT 1 APPLIC TOPICAL (20:20)
[2024-01-02] MEDS: ARICEPT 10 MG PO (20:20)
[2024-01-03 06:00] VITALS: BMI 39.8
[2024-01-03 07:11] VITALS: BP 148/93
[2024-01-03 08:18] LABS: % Basophils 0.9 % (0-2); % Eosinophils 4.6 % (0-6); % Immature Granulocytes 0.4 % (0-0.5); % Lymphocytes 27.4 % (20.5-51.1); % Monocytes 5.6 % (1.7-9.3); % Neutrophils 61.1 % (42.2-75.2); Absolute Basophils 0.1 10^3/uL (0-0.2); Absolute Eosinophils 0.4 10^3/uL (0-0.7); Absolute Lymphocytes 2.2 10^3/uL (1.2-3.4); Absolute Monocytes 0.4 10^3/uL (0.1-0.6); Absolute Neutrophils 4.8 10^3/uL (1.4-6.5); Hematocrit 33.8 % (37.0-47.0); Hemoglobin 11.8 g/dL (12.0-16.0); Mean Corp Hgb Conc. 34.9 g/dL (33.0-37.0); Mean Corpuscular Hgb 32.2 pg (27.0-31.0); Mean Corpuscular Volume 92.1 fL (81.0-99.0); Mean Platelet Volume 10.5 fL (7.4-10.4); Nucleated Red Blood Cells % 0 %; Platelet Count 191 10^3/uL (130-400); Red Blood Cell Count 3.67 10^6/uL (4.20-5.40); Red Cell Dist. Width 13.1 % (11.5-14.5); White Blood Cell Count 7.9 10^3/uL (4.8-10.8)
[2024-01-03] MEDS: VITAMIN B-12 100 MCG PO (08:40)
[2024-01-03] MEDS: NAMENDA 10 MG PO ×2 (08:40→20:15)
[2024-01-03] MEDS: FIBERCON 625 MG PO ×2 (08:40→20:15)
[2024-01-03] MEDS: ZOLOFT 75 MG PO (08:40)
[2024-01-03] MEDS: MAGNESIUM OXIDE 500 MG PO (08:40)
[2024-01-03] MEDS: ASPIR LOW (ENTERIC COATED) 81 MG PO (08:40)
[2024-01-03] MEDS: ELIQUIS 5 MG PO ×2 (08:40→20:15)
[2024-01-03] MEDS: OSCAL 500 + D 500 MG PO (08:40)
[2024-01-03] MEDS: VISBIOME 1 CAP PO (08:40)
[2024-01-03] MEDS: CLARITIN 10 MG PO (08:40)
[2024-01-03] MEDS: FLOMAX 0.400000000000000022 MG PO (08:40)
[2024-01-03] MEDS: THERAGRAN 1 TABLET PO (08:40)
[2024-01-03] MEDS: ZINC OXIDE OINTMENT 1 APPLIC TOPICAL ×2 (08:41→21:11)
[2024-01-03] MEDS: DESENEX/MITRAZOL/ZEASORB 1 APPLIC TOPICAL ×2 (08:42→20:15)
[2024-01-03] MEDS: HYDROPHOR 1 APPLIC TOPICAL (08:42)
[2024-01-03 08:47] LABS: Blood Urea Nitrogen 33 mg/dl (7-17); Calcium 9.5 mg/dl (8.4-10.2); Carbon Dioxide 27 mmol/L (22-30); Chloride 107 mmol/L (98-107); Estimated Creatinine Clearance 12 ml/min; Glucose 91 mg/dl (70-99); Potassium 3.8 mmol/L (3.5-5.1); Sodium 139 mmol/L (135-145); eGFR 12.02
--- NOTE | 2024-01-03 11:49 | W.PN.NEPH.PH ---
Today's Communication / Plan
-
Follow BMP
Prasad maintain
Assessment/Plan
-
Impression:
MARJORIE
Acute bilateral pulmonary embolism
Left foot fracture with Ortho boot
Complicated VRE UTI (status post gentamicin therapy)
History of recent right ureter stent placement at [facility] for obstructing right nephrolith
Dementia
Depression
Bladder instability
Neuropathy
Plan:
MARJORIE:
-Creatinine improved to 3.6 today remains nonoliguric
-Hemodynamically stable
-Suspect due to contrast administration from CT in combination with gentamicin administration and AIN
-off cefepime, PPI, Gentamicin, positive urine eosinophils of 3% likely consistent with drug-induced acute interstitial nephritis,
-UA with UTI, Fractional excretion of sodium not consistent with prerenal stimulus even on repeat
-s/p prasad for retention with mild hematuria and remains non oliguric
No acute dialysis recommendation at this time
avoid nephrotoxins, no NSAIDs
monitor labs for now
d/w nursing
-
-
Date of Service: January 03, 2024
CC / HPI / ROS
-
Chief Complaint:
MARJORIE
History of Present Illness:
cr down to 3 point
Blood pressure stable
prasad placed for retention on 12/30
no fever
Review of Systems:
no cp or sob at rest
Nonoliguric via Prasad
improving confusion per staff
Labs
-
Labs:
WBC 7.9 10^3/uL (4.8-10.8) 01/03/24 06:51
RBC 3.67 10^6/uL (4.20-5.40) L 01/03/24 06:51
Hgb 11.8 g/dL (12.0-16.0) L 01/03/24 06:51
Hct 33.8 % (37.0-47.0) L 01/03/24 06:51
Plt Count 191 10^3/uL (130-400) 01/03/24 06:51
Sodium 139 mmol/L (135-145) 01/03/24 06:51
Potassium 3.8 mmol/L (3.5-5.1) 01/03/24 06:51
Chloride 107 mmol/L (98-107) 01/03/24 06:51
Carbon Dioxide 27 mmol/L (22-30) 01/03/24 06:51
BUN 33 mg/dl (7-17) H 01/03/24 06:51
Creatinine 3.6 mg/dL (0.6-1.0) H 01/03/24 06:51
eGFR 12.02 01/03/24 06:51
Glucose 91 mg/dl (70-99) 01/03/24 06:51
Calcium 9.5 mg/dl (8.4-10.2) 01/03/24 06:51
Albumin 4.1 g/dl (3.5-5.0) 12/18/23 20:01
Physical Exam
-
Vital Signs:
Vital Signs
Temp Pulse Resp BP Pulse Ox
98.1 F 67 20 148/93 95
01/03/24 07:11 01/03/24 07:11 01/03/24 07:11 01/03/24 07:11 01/03/24 07:11
Cardiovascular:: Regular rate and rhythm
Respiratory:: Bilateral: CTA
Lung Excursion:: Normal
Abdomen:: Nontender
Bowel Sounds:: Normal
Extremity Edema:: None: Bilateral:
Prasad Catheter: Yes
--- NOTE | 2024-01-03 12:08 | W.PN.HOSP.TC ---
Today's Communication/Plan
-
Continue to trend creatinine
Continue with Prasad catheter
Fall precautions continuous
Continues with telesitter
Assessment / Plan
Assessment / Plan
#MARJORIE likely multifactorial in the setting of renal stone status post stent placement, prerenal versus antibiotics vs. AIN vs. ARVIND
FENA indeterminant. 3% eosinophils noted
Did receive gentamicin earlier in hospitalization
s/p NS without much improvement
Bladder scan ordered and require prasad catheter placement due to severe retention/critical I&O
Renal bladder US without hydro.
Hold PPI too.
Repeat FENA on 12/31 with intrinsic renal pattern
Mild hematuria noted.
Status post IV fluid bolus on 01/01 with improvement in creatinine 3.6 today
appreciate nephro recs
#Acute bilateral pulmonary embolism with mild right heart strain
With recent hospitalization ? Provoked due to decreased mobility
Started patient on heparin infusion and was transitioned to Eliquis 10 mg bid x 7 days completed course and now on 5mg bid to follow
Right lower extremity Doppler No sonographic evidence for right lower extremity deep venous thrombosis.
Left LE: No sonographic evidence for left lower extremity deep venous thrombosis.
ECHO limited study as patient was argumentative. EF 55 to 60%. Diastolic function indeterminate. Right heart pressures could not be determined. Normal right ventricular size. Normal right ventricular systolic function.
appreciate input from pulmonary
#Left foot fracture with Ortho boot
Venous Doppler negative for DVT
Per daughter patient is able to ambulate with a walker and improved
#Recent obstructive renal stone status post ureteral stent placement at [place] by Dr. Gill
#Polymicrobial urinary tract infection with VRE Enterococcus and Pseudomonas
Culture data noted with clancy resistance to VRE and only susceptible to gentamicin and oral linezolid only.
s/p cefepime course. Gentamycin 400 mg daily has been ordered and patient completed course. Did receive 1 dose of oritavancin.
appreciate ID input
dc to SNF with planned follow up of renal stone
Per Dr. Sy, feels very strongly that pt should follow up with usual Urologist ([facility]) post dc for stent and stone removal. Timing will be complicated, as should be treated for PE prior to stopping OAC in order to remove stent/stone.
As per [place], this will be done at [facility]
#Dementia
# Toxic metabolic encephalopathy likely secondary to delirium
Continue with memantine and donepezil
Unclear if with behavioral disturbances
Remeron was discontinued. Sertraline dose increased to 75 mg daily.
Melatonin for insomnia at night
Psych conulted
# Overnight fall on 12/31
-CT head initial negative and 6 hours later negative for acute pathology
-CT facial negative
-Telemetry sitter ordered
-Fall precaution ongoing-sensor position changed to pt back
#Mood disorder
Continue with sertraline and dose adjusted per psych
#Lethargy
-Improved with holding gabapentin
#GERD
Hold PPI as concern for AIN.
Neuropathy
History of sciatica
PT/OT/Tylenol
Hypokalemia
replete/monitor
PT/OT ordered recs SNF once ready.
DVT ppx-Eliquis
Pt will need follow up with prior urologist, Dr. Saab post discharge. Discussed with Dr. Armando who recommends pulmonary evaluation prior to undergoing lithotripsy with stent extraction, where Eliquis will be 6-12 weeks of therapy, then would
have to be placed on hold and bridging with Heparin, stopping immediately prior to procedure would have to be utilized. The exact management of the stone intervention will be deferred to Dr. Saab. Plan is to dc to SNF, weekly UA with C&S would
be appropriate until the stone can be extracted
d.w with daughter Holley over the phone in details 8,9,10 and 11.
Anticipated Discharge: > 48 hours
Subjective/Interval History
-
Date of Service: January 03, 2024
Denies any pain
States feeling better and hungry wants to eat breakfast
Objective Data
-
Labs:
Laboratory Results
01/03/24
06:51
WBC 7.9
Hgb 11.8 L
Hct 33.8 L
Plt Count 191
Sodium 139
Potassium 3.8
Chloride 107
Carbon Dioxide 27
BUN 33 H
Creatinine 3.6 H
Glucose 91
Calcium 9.5
Vital Signs:
Vital Signs
Temp Pulse Resp BP Pulse Ox
98.1 F 67 20 148/93 95
01/03/24 07:11 01/03/24 07:11 01/03/24 07:11 01/03/24 07:11 01/03/24 07:11
I&O
01/02/24 01/03/24 01/04/24
06:59 06:59 06:59
Intake Total 600 / 600 540 / 540
Output Total 1150 / 1150 700 / 700 1100 / 1100
Balance -550 / -550 -160 / -160 -1100 / -1100
Physical Exam
-
General: Well Developed, Well Nourished, No Apparent Distress and Appears Chronically Ill
HEENT: Normocephalic, Atraumatic, Moist Mucous Membranes and Other (Contusion on chin and around eyes noted)
Respiratory: Clear to Auscultation; Negative Wheezes, Rales or Rhonchi
Cardiac: Regular Rhythm and S1/S2
GI: Soft, Nontender and Nondistended
Genito-urinary: Prasad (Blood tinged urine. )
Musculoskeletal: No Clubbing, No Cyanosis and No Edema
Skin: Warm
Neuro: Awake
Psych: Calm and Apparent Dementia
[2024-01-03 15:48] VITALS: BP 157/87
--- NOTE | 2024-01-03 16:47 | PTCARENOTE ---
Assumed care of patient at 0700. Oriented to self. VSS. Drowsy, wakes to tactile stimuli. Dr. Mo aware of drowsiness. Kaba putting out punch colored urine, clot free. Repositioned for comfort. Remote video monitoring in place.
[2024-01-03] MEDS: MAGNESIUM OXIDE PO ×3 (16:59→17:57)
[2024-01-03] MEDS: OSCAL 500 + D PO ×3 (16:59→17:57)
[2024-01-03] MEDS: TYLENOL 650 MG PO (17:51)
[2024-01-03] MEDS: ARICEPT 10 MG PO (20:15)
[2024-01-03] MEDS: MELATONIN 3 MG PO (21:19)
[2024-01-03 23:05] VITALS: BP 136/76
[2024-01-04 06:00] VITALS: BMI 39.5
[2024-01-04 07:07] LABS: Blood Urea Nitrogen 35 mg/dl (7-17); Calcium 9.5 mg/dl (8.4-10.2); Carbon Dioxide 26 mmol/L (22-30); Chloride 105 mmol/L (98-107); Estimated Creatinine Clearance 12 ml/min; Glucose 98 mg/dl (70-99); Potassium 3.4 mmol/L (3.5-5.1); Sodium 139 mmol/L (135-145); eGFR 12.02
[2024-01-04 07:21] VITALS: BP 137/78
[2024-01-04] MEDS: THERAGRAN 1 TABLET PO (09:53)
[2024-01-04] MEDS: ASPIR LOW (ENTERIC COATED) 81 MG PO (09:53)
[2024-01-04] MEDS: FLOMAX 0.400000000000000022 MG PO (09:53)
[2024-01-04] MEDS: ZOLOFT 75 MG PO (09:54)
[2024-01-04] MEDS: NAMENDA 10 MG PO ×2 (09:54→21:41)
[2024-01-04] MEDS: FIBERCON 625 MG PO ×2 (09:54→21:41)
[2024-01-04] MEDS: VITAMIN B-12 100 MCG PO (09:54)
[2024-01-04] MEDS: OSCAL 500 + D 500 MG PO ×2 (09:54→17:15)
[2024-01-04] MEDS: MAGNESIUM OXIDE 500 MG PO ×2 (09:54→17:14)
[2024-01-04] MEDS: CLARITIN 10 MG PO (09:54)
[2024-01-04] MEDS: ELIQUIS 5 MG PO ×2 (09:54→21:41)
[2024-01-04] MEDS: VISBIOME 1 CAP PO (09:54)
[2024-01-04] MEDS: DESENEX/MITRAZOL/ZEASORB 1 APPLIC TOPICAL ×2 (09:55→21:42)
[2024-01-04] MEDS: ZINC OXIDE OINTMENT 1 APPLIC TOPICAL ×2 (09:55→21:41)
[2024-01-04] MEDS: HYDROPHOR 1 APPLIC TOPICAL (09:55)
--- NOTE | 2024-01-04 11:34 | W.PN.UPDATE ---
Update Note
Progress Note Update
Pt seen, resting in bed, calm, cooperative. Answering though limited eye contact. Mood is okay, affect pleasant. Tolerating increased Zoloft 75 mg - day 2, denies side effects. No agitation. Placed on melatonin last night. No further SI
evident or noted since 12/31- when pt reportedly expressed some passive wish to .
Imp: Dementia with behavior disturbance, R/o depression. Mood/affect appear good/stable.
Rec: continue current medications for dementia; monitor response on increased Zoloft
Psychiatry will follow
--- NOTE | 2024-01-04 11:42 | W.PN.HOSP.TC ---
Today's Communication/Plan
-
Chronic creatinine
IV fluids
Assistance with feeding
Assessment / Plan
Assessment / Plan
#MARJORIE likely multifactorial in the setting of renal stone status post stent placement, prerenal versus antibiotics vs. AIN vs. ARVIND
FENA indeterminant. 3% eosinophils noted
Did receive gentamicin earlier in hospitalization
s/p NS without much improvement
Bladder scan ordered and require prasad catheter placement due to severe retention/critical I&O
Renal bladder US without hydro.
Hold PPI too.
Repeat FENA on 12/31 with intrinsic renal pattern
Mild hematuria noted.
Status post IV fluid bolus on 01/01 and creatinine elevated but now worsening at 3.6 today
Patient requires assistance with feeding and oral hydration. Trial off normal saline 1 L.
appreciate nephro recs
#Acute bilateral pulmonary embolism with mild right heart strain
With recent hospitalization ? Provoked due to decreased mobility
Started patient on heparin infusion and was transitioned to Eliquis 10 mg bid x 7 days completed course and now on 5mg bid to follow
Right lower extremity Doppler No sonographic evidence for right lower extremity deep venous thrombosis.
Left LE: No sonographic evidence for left lower extremity deep venous thrombosis.
ECHO limited study as patient was argumentative. EF 55 to 60%. Diastolic function indeterminate. Right heart pressures could not be determined. Normal right ventricular size. Normal right ventricular systolic function.
appreciate input from pulmonary
#Left foot fracture with Ortho boot
Venous Doppler negative for DVT
Per daughter patient is able to ambulate with a walker and improved
#Recent obstructive renal stone status post ureteral stent placement at [facility] by Dr. Gill
#Polymicrobial urinary tract infection with VRE Enterococcus and Pseudomonas
Culture data noted with clancy resistance to VRE and only susceptible to gentamicin and oral linezolid only.
s/p cefepime course. Gentamycin 400 mg daily has been ordered and patient completed course. Did receive 1 dose of oritavancin.
appreciate ID input
dc to [facility] with planned follow up of renal stone
Per Dr. Sy, feels very strongly that pt should follow up with usual Urologist ([facility]) post dc for stent and stone removal. Timing will be complicated, as should be treated for PE prior to stopping OAC in order to remove stent/stone.
As per [place], this will be done at [facility]
#Dementia
# Toxic metabolic encephalopathy likely secondary to delirium
Continue with memantine and donepezil
Unclear if with behavioral disturbances
Remeron was discontinued. Sertraline dose increased to 75 mg daily.
Melatonin for insomnia at night
Please assist with feeding at all times. Please wake her up past 8 am for breakfast. Encourage oral intake/hydration.
Psych conulted
# Overnight fall on 12/31
-CT head initial negative and 6 hours later negative for acute pathology
-CT facial negative
-Telemetry sitter ordered
-Fall precaution ongoing-sensor position changed to pt back
#Mood disorder
Continue with sertraline and dose adjusted per psych
#Lethargy
-Improved with holding gabapentin
#GERD
Hold PPI as concern for AIN.
Neuropathy
History of sciatica
PT/OT/Tylenol
Hypokalemia
replete/monitor
PT/OT ordered recs SNF once ready.
DVT ppx-Eliquis
Pt will need follow up with prior urologist, Dr. Saab post discharge. Discussed with Dr. Armando who recommends pulmonary evaluation prior to undergoing lithotripsy with stent extraction, where Eliquis will be 6-12 weeks of therapy, then would
have to be placed on hold and bridging with Heparin, stopping immediately prior to procedure would have to be utilized. The exact management of the stone intervention will be deferred to Dr. Saab. Plan is to dc to SNF, weekly UA with C&S would
be appropriate until the stone can be extracted
d.w with daughter Holley over the phone in details on daily basis
Anticipated Discharge: > 48 hours
Subjective/Interval History
-
Date of Service: January 04, 2024
States she is tired and sleepy this morning
not interested in breakfast
Objective Data
-
Labs:
Laboratory Results
01/04/24
06:14
Sodium 139
Potassium 3.4 L
Chloride 105
Carbon Dioxide 26
BUN 35 H
Creatinine 3.6 H
Glucose 98
Calcium 9.5
Vital Signs:
Vital Signs
Temp Pulse Resp BP Pulse Ox
98.2 F 71 19 136/76 94
01/03/24 23:05 01/03/24 23:05 01/03/24 23:05 01/03/24 23:05 01/03/24 23:05
I&O
01/03/24 01/04/24 01/05/24
06:59 06:59 06:59
Intake Total 540 / 540
Output Total 700 / 700 2099 / 2099
Balance -160 / -160 -2100 / -2099
Physical Exam
-
General: Well Developed, Well Nourished, No Apparent Distress and Appears Chronically Ill
HEENT: Normocephalic, Atraumatic, Moist Mucous Membranes and Other (Contusion on chin and around eyes noted)
Respiratory: Clear to Auscultation; Negative Wheezes, Rales or Rhonchi
Cardiac: Regular Rhythm and S1/S2
GI: Soft, Nontender and Nondistended
Genito-urinary: Prasad (Blood tinged urine. )
Musculoskeletal: No Clubbing, No Cyanosis and No Edema
Skin: Warm
Neuro: Awake
Psych: Calm and Apparent Dementia
Data Reviewed
-
Total Time Spent with Patient (in minutes): 55
[2024-01-04] MEDS: NSS 1000 IV (12:16)
[2024-01-04] MEDS: KCL ELIXIR 20 MEQ PO (12:19)
--- NOTE | 2024-01-04 12:50 | W.PN.NEPH.PH ---
Today's Communication / Plan
-
Follow BMP
Maintain Prasad
Assessment/Plan
-
Impression:
MARJORIE
Acute bilateral pulmonary embolism
Left foot fracture with Ortho boot
Complicated VRE UTI (status post gentamicin therapy)
History of recent right ureter stent placement at [facility] for obstructing right nephrolith
Dementia
Depression
Bladder instability
Neuropathy
Plan:
MARJORIE:
-Creatinine stable at 3.6 today, hopefully creatinine has now plateaued and patient remains nonoliguric
-Hemodynamically stable, weights down
-Suspect due to contrast administration from CT in combination with gentamicin administration and AIN
-off cefepime, PPI, Gentamicin, positive urine eosinophils of 3% likely consistent with drug-induced acute interstitial nephritis,
-UA with UTI, Fractional excretion of sodium not consistent with prerenal stimulus even on repeat
-s/p prasad for retention with mild hematuria and remains non oliguric
No acute dialysis recommendation at this time
avoid nephrotoxins, no NSAIDs
monitor labs for now
-
-
Date of Service: January 04, 2024
CC / HPI / ROS
-
Chief Complaint:
MARJORIE
History of Present Illness:
Creatinine stable at 3.6
Blood pressure stable
prasad placed for retention on 12/30
no fever
Review of Systems:
no cp or sob at rest
Nonoliguric via Prasad
improving confusion per staff
Weights down
Labs
-
Labs:
WBC 7.9 10^3/uL (4.8-10.8) 01/03/24 06:51
RBC 3.67 10^6/uL (4.20-5.40) L 01/03/24 06:51
Hgb 11.8 g/dL (12.0-16.0) L 01/03/24 06:51
Hct 33.8 % (37.0-47.0) L 01/03/24 06:51
Plt Count 191 10^3/uL (130-400) 01/03/24 06:51
Sodium 139 mmol/L (135-145) 01/04/24 06:14
Potassium 3.4 mmol/L (3.5-5.1) L 01/04/24 06:14
Chloride 105 mmol/L (98-107) 01/04/24 06:14
Carbon Dioxide 26 mmol/L (22-30) 01/04/24 06:14
BUN 35 mg/dl (7-17) H 01/04/24 06:14
Creatinine 3.6 mg/dL (0.6-1.0) H 01/04/24 06:14
eGFR 12.02 01/04/24 06:14
Glucose 98 mg/dl (70-99) 01/04/24 06:14
Calcium 9.5 mg/dl (8.4-10.2) 01/04/24 06:14
Albumin 4.1 g/dl (3.5-5.0) 12/18/23 20:01
Physical Exam
-
Vital Signs:
Vital Signs
Temp Pulse Resp BP Pulse Ox
98 F 62 18 137/78 92
01/04/24 07:21 01/04/24 07:21 01/04/24 07:21 01/04/24 07:21 01/04/24 07:21
Cardiovascular:: Regular rate and rhythm
Respiratory:: Bilateral: CTA
Lung Excursion:: Normal
Abdomen:: Nontender and Soft
Bowel Sounds:: Normal
Extremity Edema:: None: Bilateral:
Prasad Catheter: Yes
[2024-01-04 15:31] VITALS: BP 127/64
[2024-01-04] MEDS: ARICEPT 10 MG PO (21:41)
[2024-01-04] MEDS: MELATONIN 3 MG PO (21:41)
[2024-01-04 23:30] VITALS: BP 129/67
[2024-01-05 06:00] VITALS: BMI 39.4
[2024-01-05 07:30] VITALS: BP 148/77
[2024-01-05] MEDS: FIBERCON 625 MG PO ×2 (07:53→21:10)
[2024-01-05] MEDS: THERAGRAN 1 TABLET PO (07:53)
[2024-01-05] MEDS: NAMENDA 10 MG PO ×2 (07:53→21:11)
[2024-01-05] MEDS: VITAMIN B-12 100 MCG PO (07:53)
[2024-01-05] MEDS: ASPIR LOW (ENTERIC COATED) 81 MG PO (07:54)
[2024-01-05] MEDS: FLOMAX 0.400000000000000022 MG PO (07:54)
[2024-01-05] MEDS: CLARITIN 10 MG PO (07:54)
[2024-01-05] MEDS: OSCAL 500 + D 500 MG PO ×2 (07:54→16:17)
[2024-01-05] MEDS: VISBIOME 1 CAP PO (07:54)
[2024-01-05] MEDS: ZOLOFT 75 MG PO (07:54)
[2024-01-05] MEDS: MAGNESIUM OXIDE 500 MG PO ×2 (07:54→16:17)
[2024-01-05] MEDS: ELIQUIS 5 MG PO ×2 (07:55→21:10)
[2024-01-05] MEDS: HYDROPHOR 1 APPLIC TOPICAL (08:00)
[2024-01-05] MEDS: ZINC OXIDE OINTMENT 1 APPLIC TOPICAL ×2 (08:01→21:11)
[2024-01-05] MEDS: DESENEX/MITRAZOL/ZEASORB 1 APPLIC TOPICAL ×2 (08:01→21:11)
[2024-01-05 08:59] LABS: Blood Urea Nitrogen 35 mg/dl (7-17); Carbon Dioxide 26 mmol/L (22-30); Chloride 108 mmol/L (98-107); Estimated Creatinine Clearance 14 ml/min; Glucose 98 mg/dl (70-99); Potassium 3.5 mmol/L (3.5-5.1); Sodium 142 mmol/L (135-145); eGFR 13.84
--- NOTE | 2024-01-05 09:37 | W.PN.HOSP.TC ---
Today's Communication/Plan
-
Recheck labs in the morning
Discharge planning
Assessment / Plan
Assessment / Plan
Gen-awake, alert, NAD
HEENT-NC, AT, anicteric, clear oral mm
Neck-supple
CV-reg, no M, +S1/S2
Lungs-clear B/L
Abd-soft, NT, ND
Ext-no edema
Musculoskeletal-no cyanosis, clubbing
Skin-warm and dry
MARJORIE - likely multifactorial in the setting of renal stone status post stent placement, prerenal versus antibiotics vs. AIN vs. ARVIND. Creatinine coming down, 3.2 today.
FENA indeterminant. 3% eosinophils noted
Did receive gentamicin earlier in hospitalization
s/p NS without much improvement
Bladder scan ordered and require prasad catheter placement due to severe retention/critical I&O
Renal bladder US without hydro.
Hold PPI too.
Repeat FENA on 12/31 with intrinsic renal pattern
Mild hematuria noted.
Status post IV fluid bolus on 01/01 and creatinine elevated but now worsening at 3.6 today
Patient requires assistance with feeding and oral hydration. Trial off normal saline 1 L.
appreciate nephro recs
Acute bilateral pulmonary embolism with mild right heart strain
With recent hospitalization ? Provoked due to decreased mobility
Started patient on heparin infusion and was transitioned to Eliquis 10 mg bid x 7 days completed course and now on 5mg bid to follow
Right lower extremity Doppler No sonographic evidence for right lower extremity deep venous thrombosis.
Left LE: No sonographic evidence for left lower extremity deep venous thrombosis.
ECHO limited study as patient was argumentative. EF 55 to 60%. Diastolic function indeterminate. Right heart pressures could not be determined. Normal right ventricular size. Normal right ventricular systolic function.
appreciate input from pulmonary
Left foot fracture with Ortho boot
Venous Doppler negative for DVT
Per daughter patient is able to ambulate with a walker and improved
Recent obstructive renal stone status post ureteral stent placement at [place] by Dr. Gill
Polymicrobial urinary tract infection with VRE Enterococcus and Pseudomonas
Culture data noted with clancy resistance to VRE and only susceptible to gentamicin and oral linezolid only.
s/p cefepime course. Gentamycin 400 mg daily has been ordered and patient completed course. Did receive 1 dose of oritavancin.
appreciate ID input
dc to SNF with planned follow up of renal stone
Per Dr. Sy, feels very strongly that pt should follow up with usual [facility]rologist ([facility]) post dc for stent and stone removal. Timing will be complicated, as should be treated for PE prior to stopping OAC in order to remove stent/stone.
As per [place], this will be done at [facility]
Dementia
Toxic metabolic encephalopathy likely secondary to delirium
Continue with memantine and donepezil
Unclear if with behavioral disturbances
Remeron was discontinued. Sertraline dose increased to 75 mg daily.
Melatonin for insomnia at night
Please assist with feeding at all times. Please wake her up past 8 am for breakfast. Encourage oral intake/hydration.
Psych conulted
Overnight fall on 12/31
-CT head initial negative and 6 hours later negative for acute pathology
-CT facial negative
-Telemetry sitter ordered
-Fall precaution ongoing-sensor position changed to pt back
Mood disorder
Continue with sertraline and dose adjusted per psych
Lethargy
-Improved with holding gabapentin
GERD
Hold PPI as concern for AIN.
Neuropathy
History of sciatica
PT/OT/Tylenol
Hypokalemia
replete/monitor
Dispo -awaiting placement in SNF, hopefully tomorrow. I spoke with patient's daughter Holley on the phone with an update.
Pt will need follow up with prior urologist, Dr. Saab post discharge. Discussed with Dr. Armando who recommends pulmonary evaluation prior to undergoing lithotripsy with stent extraction, where Eliquis will be 6-12 weeks of therapy, then would
have to be placed on hold and bridging with Heparin, stopping immediately prior to procedure would have to be utilized. The exact management of the stone intervention will be deferred to Dr. Saab. Plan is to dc to SNF, weekly UA with C&S would
be appropriate until the stone can be extracted
Anticipated Discharge: Within 24 hours
Subjective/Interval History
-
Date of Service: January 05, 2024
Patient seen and examined. No complaints. Asking to go home.
Objective Data
-
Labs:
Laboratory Results
01/05/24
07:58
Sodium 142
Potassium 3.5
Chloride 108 H
Carbon Dioxide 26
BUN 35 H
Creatinine 3.2 H
Glucose 98
Calcium 9.0
Vital Signs:
Vital Signs
Temp Pulse Resp BP Pulse Ox
98.2 F 69 18 148/77 93
01/05/24 07:30 01/05/24 07:30 01/05/24 07:30 01/05/24 07:30 01/05/24 07:30
I&O
01/04/24 01/05/24 01/06/24
06:59 06:59 06:59
Output Total 2099 / 2099 1500 / 1500
Balance -2100 / -2100 -1500 / -1500
Review of Systems
-
Unable to obtain full review of systems at this time due to: Dementia
--- NOTE | 2024-01-05 10:02 | CM ---
Addendum entered by Reta Baird 01/05/24 14:33:
Patient accepted to [facility] and admissions person Sharda is working on auth and will call to patient daughter to confirm SS#.
Addendum entered by Reta Baird 01/05/24 14:00:
[facility] now with no beds. CM spoke with patient daughter and she indicated that her first choice is for [facility] and CM spoke with Sharda who indicated that they would start auth after confirming ability to accept. CM will continue to
follow for discharge planning needs.
Original Note:
Patient now stable per physician, CM called to [facility] and updated referral sent, requesting confirmation of available bed and acceptance. Patient will need auth and updated agreement with family. CM will continue to follow for discharge
planning needs.
Plan; SNF
--- NOTE | 2024-01-05 11:16 | W.PN.NEPH.PH ---
Today's Communication / Plan
-
- Cr improving, continue to trend
Assessment/Plan
-
Impression:
MARJORIE
Acute bilateral pulmonary embolism
Left foot fracture with Ortho boot
Complicated VRE UTI (status post gentamicin therapy)
History of recent right ureter stent placement at [facility] for obstructing right nephrolith
Dementia
Depression
Bladder instability
Neuropathy
Plan:
MARJORIE:
-Creatinine stable at 3.2 today, peak 3.9
-Hemodynamically stable, weights down
-Suspect due to contrast administration from CT in combination with gentamicin administration and AIN
-off cefepime, PPI, Gentamicin, positive urine eosinophils of 3% and peripheral eosinophilia noted. likely consistent with drug-induced acute interstitial nephritis.
-UA with UTI, Fractional excretion of sodium not consistent with prerenal stimulus even on repeat
-s/p prasad for retention with mild hematuria and remains non oliguric
No acute dialysis recommendation at this time
avoid nephrotoxins, no NSAIDs
monitor labs for now
-
-
Date of Service: January 05, 2024
CC / HPI / ROS
-
Chief Complaint:
MARJORIE
History of Present Illness:
Creatinine improved at 3.2
Blood pressure stable
prasad placed for retention on 12/30
no fever
Review of Systems:
no cp or sob at rest
Nonoliguric via Prasad
improving confusion per staff
Weights down
Labs
-
Labs:
WBC 7.9 10^3/uL (4.8-10.8) 01/03/24 06:51
RBC 3.67 10^6/uL (4.20-5.40) L 01/03/24 06:51
Hgb 11.8 g/dL (12.0-16.0) L 01/03/24 06:51
Hct 33.8 % (37.0-47.0) L 01/03/24 06:51
Plt Count 191 10^3/uL (130-400) 01/03/24 06:51
Sodium 142 mmol/L (135-145) 01/05/24 07:58
Potassium 3.5 mmol/L (3.5-5.1) 01/05/24 07:58
Chloride 108 mmol/L (98-107) H 01/05/24 07:58
Carbon Dioxide 26 mmol/L (22-30) 01/05/24 07:58
BUN 35 mg/dl (7-17) H 01/05/24 07:58
Creatinine 3.2 mg/dL (0.6-1.0) H 01/05/24 07:58
eGFR 13.84 01/05/24 07:58
Glucose 98 mg/dl (70-99) 01/05/24 07:58
Calcium 9.0 mg/dl (8.4-10.2) 01/05/24 07:58
Albumin 4.1 g/dl (3.5-5.0) 12/18/23 20:01
Physical Exam
-
Vital Signs:
Vital Signs
Temp Pulse Resp BP Pulse Ox
98.2 F 69 18 148/77 93
01/05/24 07:30 01/05/24 07:30 01/05/24 07:30 01/05/24 07:30 01/05/24 07:30
Cardiovascular:: Regular rate and rhythm
Respiratory:: Bilateral: Coarse
Lung Excursion:: Normal
Abdomen:: Nontender and Soft
Bowel Sounds:: Normal
Extremity Edema:: None: Bilateral:
Prasad Catheter: Yes
[2024-01-05] MEDS: KCL 20 MEQ PO (11:18)
[2024-01-05 15:10] VITALS: BP 163/85
[2024-01-05] MEDS: ARICEPT 10 MG PO (21:10)
[2024-01-05] MEDS: MELATONIN 3 MG PO (21:10)
[2024-01-05 23:00] VITALS: BP 187/92
[2024-01-06] MEDS: ROBITUSSIN 200 MG PO (01:25)
[2024-01-06 01:30] VITALS: BP 151/89
--- NOTE | 2024-01-06 06:22 | PTCARENOTE ---
pt saturated w/ hematuria. prasad cath irrigated for 150 cc's of hematuria w/ moderate sized clots. pt expressed relief of bladder distention and pain. will monitor. .
[2024-01-06 07:30] VITALS: BP 148/78
[2024-01-06 07:56] VITALS: BMI 39.1
[2024-01-06] MEDS: VITAMIN B-12 100 MCG PO (08:31)
[2024-01-06] MEDS: THERAGRAN 1 TABLET PO (08:31)
[2024-01-06] MEDS: MAGNESIUM OXIDE 500 MG PO ×2 (08:31→17:23)
[2024-01-06] MEDS: CLARITIN 10 MG PO (08:31)
[2024-01-06] MEDS: ELIQUIS 5 MG PO ×2 (08:31→22:33)
[2024-01-06] MEDS: VISBIOME 1 CAP PO (08:31)
[2024-01-06] MEDS: ZOLOFT 75 MG PO (08:31)
[2024-01-06] MEDS: FLOMAX 0.400000000000000022 MG PO (08:31)
[2024-01-06] MEDS: OSCAL 500 + D 500 MG PO ×2 (08:31→17:23)
[2024-01-06] MEDS: FIBERCON 625 MG PO ×2 (08:32→22:34)
[2024-01-06] MEDS: NAMENDA 10 MG PO ×2 (08:32→22:33)
[2024-01-06] MEDS: KCL 20 MEQ PO (08:32)
[2024-01-06] MEDS: ASPIR LOW (ENTERIC COATED) 81 MG PO (08:32)
[2024-01-06] MEDS: DESENEX/MITRAZOL/ZEASORB 1 APPLIC TOPICAL ×2 (08:32→22:35)
[2024-01-06] MEDS: HYDROPHOR 1 APPLIC TOPICAL (08:33)
[2024-01-06] MEDS: ZINC OXIDE OINTMENT 1 APPLIC TOPICAL ×2 (08:33→22:34)
--- NOTE | 2024-01-06 09:07 | W.PN.HOSP.TC ---
Addendum entered and electronically signed by Mike Johnson DO 01/06/24 13:16:
Informed by nurse that patient passed loose stools with what appeared to be blood clots. Stools are heme positive.
Hemoglobin today is 12.0. Hemodynamically stable. In light of anticoagulation will consult GI.
Updated daughter Holley on the phone.
Original Note:
Today's Communication/Plan
-
BMP
Discharge
Assessment / Plan
Assessment / Plan
Gen-awake, alert, NAD
HEENT-NC, AT, anicteric, clear oral mm
Neck-supple
CV-reg, no M, +S1/S2
Lungs-clear B/L
Abd-soft, NT, ND
Ext-no edema
Musculoskeletal-no cyanosis, clubbing
Skin-warm and dry
MARJORIE - likely multifactorial in the setting of renal stone status post stent placement, prerenal versus antibiotics vs. AIN vs. ARVIND. Renal function improving, labs pending for today.
FENA indeterminant. 3% eosinophils noted
Did receive gentamicin earlier in hospitalization
s/p NS without much improvement
Bladder scan ordered and require prasad catheter placement due to severe retention/critical I&O
Renal bladder US without hydro.
Hold PPI too.
Repeat FENA on 12/31 with intrinsic renal pattern
Mild hematuria noted.
Status post IV fluid bolus on 01/01 and creatinine elevated but now worsening at 3.6 today
Patient requires assistance with feeding and oral hydration. Trial off normal saline 1 L.
appreciate nephro recs
Acute bilateral pulmonary embolism with mild right heart strain
With recent hospitalization ? Provoked due to decreased mobility
Continue Eliquis, likely for at least 3 months.
Right lower extremity Doppler No sonographic evidence for right lower extremity deep venous thrombosis.
Left LE: No sonographic evidence for left lower extremity deep venous thrombosis.
ECHO limited study as patient was argumentative. EF 55 to 60%. Diastolic function indeterminate. Right heart pressures could not be determined. Normal right ventricular size. Normal right ventricular systolic function.
appreciate input from pulmonary
Left foot fracture with Ortho boot
Venous Doppler negative for DVT
Per daughter patient is able to ambulate with a walker and improved
Recent obstructive renal stone status post ureteral stent placement at [facility] by Dr. Gill
Polymicrobial urinary tract infection with VRE Enterococcus and Pseudomonas
Completed course of antibiotics.
Outpatient follow-up with urology for definitive stone management.
Per Dr. Sy, feels very strongly that pt should follow up with usual Urologist ([facility]) post dc for stent and stone removal. Timing will be complicated, as should be treated for PE prior to stopping OAC in order to remove stent/stone.
As per dgCarolina rudolph, this will be done at [facility]
Dementia
Toxic metabolic encephalopathy likely secondary to delirium
Continue with memantine and donepezil
Unclear if with behavioral disturbances
Remeron was discontinued. Sertraline dose increased to 75 mg daily.
Melatonin for insomnia at night
Please assist with feeding at all times. Please wake her up past 8 am for breakfast. Encourage oral intake/hydration.
Psych following
Overnight fall on 12/31
-CT head initial negative and 6 hours later negative for acute pathology
-CT facial negative
-Telemetry sitter ordered
-Fall precaution ongoing-sensor position changed to pt back
Mood disorder
Continue with sertraline and dose adjusted per psych
Lethargy
-Improved with holding gabapentin
GERD
Hold PPI as concern for AIN.
Neuropathy
History of sciatica
PT/OT/Tylenol
Hypokalemia
replete/monitor
Dispo -awaiting placement in SNF, hopefully today. Awaiting BMP today. Awaiting insurance authorization for rehab.
Pt will need follow up with prior urologist, Dr. Saab post discharge. Discussed with Dr. Armando who recommends pulmonary evaluation prior to undergoing lithotripsy with stent extraction, where Eliquis will be 6-12 weeks of therapy, then would
have to be placed on hold and bridging with Heparin, stopping immediately prior to procedure would have to be utilized. The exact management of the stone intervention will be deferred to Dr. Saab. Plan is to dc to [facility], weekly UA with C&S would
be appropriate until the stone can be extracted
Anticipated Discharge: Today
Subjective/Interval History
-
Date of Service: January 06, 2024
Patient seen and examined. Complaining of burning around her butt.
Objective Data
-
Labs:
Laboratory Results
01/06/24
09:01
Sodium Pending
Potassium Pending
Chloride Pending
Carbon Dioxide Pending
BUN Pending
Creatinine Pending
Glucose Pending
Calcium Pending
Vital Signs:
Vital Signs
Temp Pulse Resp BP Pulse Ox
98.3 F 70 18 148/78 94
01/06/24 07:30 01/06/24 07:30 01/06/24 07:30 01/06/24 07:30 01/06/24 07:30
I&O
01/05/24 01/06/24 01/07/24
06:59 06:59 06:59
Intake Total 600 / 600
Output Total 1500 / 1500 200 / 200
Balance -1500 / -1500 400 / 400
Review of Systems
-
History Source: Patient
All other systems: Reviewed and negative
[2024-01-06 10:11] LABS: Blood Urea Nitrogen 37 mg/dl (7-17); Calcium 9.4 mg/dl (8.4-10.2); Carbon Dioxide 26 mmol/L (22-30); Chloride 107 mmol/L (98-107); Estimated Creatinine Clearance 15 ml/min; Glucose 121 mg/dl (70-99); Potassium 3.6 mmol/L (3.5-5.1); Sodium 143 mmol/L (135-145); eGFR 15.58
--- NOTE | 2024-01-06 11:27 | CM ---
TC from Sharda/[facility] requested updated notes from therapy. Sent via [facility].
[facility] is working on insurance auth.
patient will require ambulance transport.
Plan: [facility] once authorization obtained.
[facility]
Report# [phone]
[2024-01-06 12:44] LABS: % Basophils 0.8 % (0-2); % Eosinophils 3.5 % (0-6); % Immature Granulocytes 0.3 % (0-0.5); % Lymphocytes 20.2 % (20.5-51.1); % Monocytes 6.5 % (1.7-9.3); % Neutrophils 68.7 % (42.2-75.2); Absolute Basophils 0.1 10^3/uL (0-0.2); Absolute Eosinophils 0.3 10^3/uL (0-0.7); Absolute Lymphocytes 1.8 10^3/uL (1.2-3.4); Absolute Monocytes 0.6 10^3/uL (0.1-0.6); Hematocrit 33.8 % (37.0-47.0); Mean Corp Hgb Conc. 35.5 g/dL (33.0-37.0); Mean Corpuscular Volume 90.1 fL (81.0-99.0); Mean Platelet Volume 9.6 fL (7.4-10.4); Nucleated Red Blood Cells % 0 %; Platelet Count 199 10^3/uL (130-400); Red Blood Cell Count 3.75 10^6/uL (4.20-5.40); Red Cell Dist. Width 13.6 % (11.5-14.5); White Blood Cell Count 8.7 10^3/uL (4.8-10.8)
--- NOTE | 2024-01-06 14:20 | W.PN.NEPH.PH ---
Today's Communication / Plan
-
- sign off
Assessment/Plan
-
Impression:
MARJORIE
Acute bilateral pulmonary embolism
Left foot fracture with Ortho boot
Complicated VRE UTI (status post gentamicin therapy)
History of recent right ureter stent placement at [facility] for obstructing right nephrolith
Dementia
Depression
Bladder instability
Neuropathy
Plan:
MARJORIE:
-Creatinine improved at 2.9 today, peak 3.9
-Hemodynamically stable, weights down
-Suspect due to contrast administration from CT in combination with gentamicin administration and AIN
-off cefepime, PPI, Gentamicin, positive urine eosinophils of 3% and peripheral eosinophilia noted. likely consistent with drug-induced acute interstitial nephritis.
-UA with UTI, Fractional excretion of sodium not consistent with prerenal stimulus even on repeat
-s/p prasad for retention with mild hematuria and remains non oliguric
No acute dialysis recommendation at this time
avoid nephrotoxins, no NSAIDs
Cr has been improving since 01/01. We will sign off at this time. Please obtain repeat labs 1-2 weeks after discharge. We will plan to follow up in 6-8 weeks after discharge in our office.
-
-
Date of Service: January 06, 2024
CC / HPI / ROS
-
Chief Complaint:
MARJORIE
History of Present Illness:
Creatinine improved at 2.9
Blood pressure stable
prasad placed for retention on 12/30
no fever
Review of Systems:
no cp or sob at rest
Nonoliguric via Prasad
improving confusion per staff
Weights down
Labs
-
Labs:
WBC 8.7 10^3/uL (4.8-10.8) 01/06/24 12:38
RBC 3.75 10^6/uL (4.20-5.40) L 01/06/24 12:38
Hgb 12.0 g/dL (12.0-16.0) 01/06/24 12:38
Hct 33.8 % (37.0-47.0) L 01/06/24 12:38
Plt Count 199 10^3/uL (130-400) 01/06/24 12:38
Sodium 143 mmol/L (135-145) 01/06/24 09:22
Potassium 3.6 mmol/L (3.5-5.1) 01/06/24 09:22
Chloride 107 mmol/L (98-107) 01/06/24 09:22
Carbon Dioxide 26 mmol/L (22-30) 01/06/24 09:22
BUN 37 mg/dl (7-17) H 01/06/24 09:22
Creatinine 2.9 mg/dL (0.6-1.0) H 01/06/24 09:22
eGFR 15.58 01/06/24 09:22
Glucose 121 mg/dl (70-99) H 01/06/24 09:22
Calcium 9.4 mg/dl (8.4-10.2) 01/06/24 09:22
Albumin 4.1 g/dl (3.5-5.0) 12/18/23 20:01
Physical Exam
-
Vital Signs:
Vital Signs
Temp Pulse Resp BP Pulse Ox
98.3 F 70 18 148/78 94
01/06/24 07:30 01/06/24 07:30 01/06/24 07:30 01/06/24 07:30 01/06/24 07:30
Cardiovascular:: Regular rate and rhythm
Respiratory:: Bilateral: Coarse
Lung Excursion:: Normal
Abdomen:: Nontender and Soft
Bowel Sounds:: Normal
Extremity Edema:: None: Bilateral:
Prasad Catheter: No
--- NOTE | 2024-01-06 14:21 | CON.GI ---
Addendum entered and electronically signed by Cheryl Rowley DO 01/06/24 16:22:
I saw and examined the patient.
The HEALTHCARE ARCHITECT or PA's note was reviewed and I agree with the note.
Comment: Briefly, Jodie is an 83 y.o. female with history of dementia and GI history significant for bowel perforation w/ sigmoid resection and temporary ostomy now s/p reversal (@ [facility]), hepatic steatosis, b/l PE on Eliquis, ureteral stones
c/b hydronephrosis s/p stent initially admitted with hypoxemia found to have b/l PEs started on heparin gtt and transitioned to eliquis w/ hospital course c/b MARJORIE, UTI w/ VRE, delirium and fall while in the hospital, stable for discharge to SNF
today, however, new-onset rectal bleeding, noted to be passing blood clots today. Hemoglobin dropped to 11 (previously 13-14). Limited history from patient due to known dementia. Tatyana Vega discussed extensively with daughter on the phone-- broad
differential diagnosis, including benign anorectal pathology such as hemorrhoids, fissure, stercoral ulcer vs, diverticular bleed, anastomotic ulcer, AVM, ischemic diuelafoy, hemorrhagic polyp, mucosal prolapse or malignancy. Certainly, starting on
anticoagulation increased risk of bleeding. Options including conservative management, monitoring blood count and comfort measures discussed vs. more limited evaluation with a flex sig vs. full colonoscopy. Daughter would like to think about it
overnight and will touch base with her tomorrow to see how she would like to proceed.
Original Note:
Consultation
-
Date/Time Consultation Requested: 01/06/24 1220
Date/Time Consultation Performed: 01/06/24 1420
Requesting Provider: Mike Johnson MD
Performing Provider: ALDA Marx
Reason for Consultation: rectal bleeding
Medical History
Chief Complaint / HPI
Chief Complaint: rectal bleeding
History of Present Illness:
Pt is an 83yo with hx multiple medical problems including bowel perforation with temporary ostomy and reversal at [facility] 5-6 years ago, dementia, neuropathy, GERD, renal stones, asthma with recent [facility] admission for ureteral stent
placement. She also had recent foot fracture. She presented on 12/17 with concern for weakness with abdominal pain and vomiting. She was noted with hypoxemia and CT on admission with b/l PE and initially placed on heparin Gtt then Eliquis. During
admission she was noted with worsening MARJORIE (prerenal, abx, vs other) with nephrology consultation, UTI with VRE and ID consultation, TME with delerium- psych eval, and fall 12/31. She is now noted with rectal bleeding with passing clots and
asked to evaluate.
Pt with limited history with dementia but denies dysphagia, GERD, nausea, vomiting, abdominal pain, diarrhea, constipation or bleeding in past. Per family hx prior colonoscopy last may have been prior to bowel surgery and family did not recall
colon CA or polyps.
Past Medical History
Past Medical History: Asthma, GERD, Renal Failure (CKD), Psychiatric (mood disorder, dementia) and Other (renal stones with recent stent placement at [facility], neuropathy, new bibasilar PE's this admission, hepatic steatosis, diverticulosis )
Past Surgical History: Bowel Resection (with bowel perforation with temporary ostomy then reversal at [facility]), Cholecystectomy and Orthopedic (foot fracture)
Social History
Tobacco: Non-Smoker
Alcohol: None
Drug: None
Living: Penitentiary
Employment: Retired
Family History
Family History: Reviewed & Not Pertinent
Allergies / Home Medications
Allergy/AdvReac Type Severity Reaction Status Date / Time
Iodinated Contrast Media Allergy Unknown Unknown Verified 12/18/23 19:49
latex Allergy Unknown Unknown Verified 12/18/23 19:49
�Medication �Instructions �Recorded
Lactobacillus rhamnosus GG 10 1 cap PO DAILY probiotic 12/18/23
billion cell capsule (Culturelle)
albuterol sulfate 90 mcg/actuation 2 puff inhalation R Q4HPRN PRN 12/18/23
aerosol inhaler wheezing
aspirin 81 mg tablet,delayed 81 mg PO DAILY Blood Clot 12/18/23
release Prevention/Tx
calcium carbonate 600 mg-vitamin 1 tab PO BID@0800,1700 Supplement 12/18/23
D3 20 mcg (800 unit) chewable
tablet (Caltrate 600 plus D)
cyanocobalamin (vitamin B-12) 100 100 mcg PO DAILY Supplement 12/18/23
mcg tablet
donepezil 10 mg tablet 10 mg PO DAILY@1999 cognitive 12/18/23
impairment
fexofenadine 180 mg tablet 180 mg PO DAILY Allergies 12/18/23
fiber 2 cap PO BID@08,1999 Constipation 12/18/23
guaifenesin 100 mg/5 mL oral liquid 200 mg PO Q6HPRN PRN cough 12/18/23
magnesium oxide 400 mg PO BID@0800,1700 Supplement 12/18/23
miconazole nitrate 2 % topical 1 applic topical BID@799,199912/18/23
cream brenton-area/labia
mineral oil-hydrophil petrolat 1 applic topical DAILY B/L arms 12/18/23
topical ointment and legs
omega 0-ekg-kkx-fish oil 1,000 mg 1 cap PO DAILY Supplement 12/18/23
(120 mg-180 mg) capsule (Fish Oil)
tamsulosin 0.4 mg capsule 0.4 mg PO DAILY Urinary Issue 12/18/23
therapeutic multivitamin 1 tab PO DAILY Supplement 12/18/23
zinc oxide 20 % topical ointment 1 applic topical BID@799,199912/18/23
sacrum
apixaban 5 mg tablet (Eliquis) 5 mg PO BID #0 tabs 01/06/24
bisacodyl 10 mg rectal suppository 10 mg MN [id number] PRN constipation 01/06/24
#0 ea
melatonin 3 mg tablet 3 mg PO HS #0 tabs 01/06/24
memantine 10 mg tablet 10 mg PO BID #0 tabs 01/06/24
potassium chloride 20 mEq 20 meq PO DAILY #0 tabs 01/06/24
tablet,extended release(part/cryst)
sertraline 50 mg tablet 75 mg (1.5 x 50 mg) PO DAILY #0 01/06/24
tabs
Review of Systems
-
History Source: Patient and Family
Constitutional: Reports No Symptoms
EENT: Reports No Symptoms
Respiratory: Reports No Symptoms
Cardiac: Reports No Symptoms
Abdomen/GI: Reports Bloody Stools
: Reports Bleeding
Musculoskeletal: Reports No Symptoms
Skin: Reports No Symptoms
Neurological: Reports Weakness and Other (confusion)
Endocrine: Reports No Symptoms
Hematologic/Lymphatic: Reports Bleeding
Vital Signs
Temp Pulse Resp BP Pulse Ox
98.3 F 70 18 148/78 94
01/06/24 07:30 01/06/24 07:30 01/06/24 07:30 01/06/24 07:30 01/06/24 07:30
Physical Exam
Exam
General: Well Developed, Well Nourished and No Apparent Distress
HEENT: Normocephalic and Anicteric
Respiratory: Clear
Cardiac: Regular Rhythm
GI: Soft, Non Tender and Non Distended
Rectal: Brown (with some trace of red ), Hem Positive and Other (limited with pt ability to cooperate no large hemorrhoids, masses, or impaction noted )
Musculoskeletal: No Clubbing and No Cyanosis
Skin: Warm and Dry
Neuro: Awake, Alert and Other (confused)
Psych: Calm
Results
WBC 8.7 10^3/uL (4.8-10.8) 01/06/24 12:38
Hgb 12.0 g/dL (12.0-16.0) 01/06/24 12:38
Hct 33.8 % (37.0-47.0) L 01/06/24 12:38
MCV 90.1 fL (81.0-99.0) 01/06/24 12:38
Plt Count 199 10^3/uL (130-400) 01/06/24 12:38
Absolute Neuts (auto) 6.0 10^3/uL (1.4-6.5) 01/06/24 12:38
APTT 76.5 Sec (23.4-35.0) H 12/22/23 07:11
Sodium 143 mmol/L (135-145) 01/06/24 09:22
Potassium 3.6 mmol/L (3.5-5.1) 01/06/24 09:22
Chloride 107 mmol/L (98-107) 01/06/24 09:22
Carbon Dioxide 26 mmol/L (22-30) 01/06/24 09:22
BUN 37 mg/dl (7-17) H 01/06/24 09:22
Creatinine 2.9 mg/dL (0.6-1.0) H 01/06/24 09:22
Calcium 9.4 mg/dl (8.4-10.2) 01/06/24 09:22
Total Bilirubin 0.6 mg/dl (0.2-1.3) 12/18/23 20:01
AST 38 U/L (14-36) H 12/18/23 20:01
ALT 22 U/L (0-35) 12/18/23 20:01
Alkaline Phosphatase 89 U/L (38-126) 12/18/23 20:01
Lipase 39 U/L (23-300) 12/18/23 20:01
Diagnostic Image Results:
12/19/23 CT Abd/pelvis W Iv Cont
1. ACUTE BILATERAL LOWER LOBE PULMONARY ARTERIAL EMBOLIC DISEASE.
2. Mild to moderate right hydronephrosis with a right ureteral stent in normal position. Mild right periureteral inflammation which could be infectious or inflammatory in etiology. 6.7 mm nonobstructing right intrarenal calculus.
3. Multiple small nonobstructing left intrarenal calculi.
4. Mild to moderate chronic bilateral renal disease.
5. Moderate diffuse hepatic steatosis.
6. Severe diffuse pancreatic lipomatosis.
7. Severe colonic diverticulosis.
8. Previous sigmoidectomy and cholecystectomy.
Prior GI Procedures:
EGD: denies
Colonoscopy: 5- years ago ? [facility] [place]
Assessment / Plan
-
Pt is an 83yo with hx multiple medical problems including bowel perforation with temporary ostomy and reversal at [facility] 5-6 years ago, dementia, neuropathy, GERD, renal stones, asthma with recent [facility] admission for ureteral stent
placement. She also had recent foot fracture. She presented on 12/17 with concern for weakness with abdominal pain and vomiting. She was noted with hypoxemia and CT on admission with b/l PE and initially placed on heparin Gtt then Eliquis. During
admission she was noted with worsening MARJORIE (prerenal, abx, vs other) with nephrology consultation, UTI with VRE and ID consultation, TME with delerium- psych eval, and fall 12/31. She is now noted with rectal bleeding with passing clots and
asked to evaluate.
-rectal bleeding
-anemia
-ureteral stones with stent/hydro/heamaturia
-b/l PE on Eliquis
-MRAJORIE
-recent foot fx
-TME
-recent fall
other medical problems:
-hx sigmoid resection with temp ostomy then reversal
-hepatic steatosis
-dementia
-GERD
-mood disorder
-neuropathy
PLAN:
etiology of rectal bleeding related to local source such as hemorrhoids though not noted on exam, diverticular bleed, polyp, anastomotic ulcer with hx resection/stricture, mass, AVM vs other
minimal drop in hbg 13-14 range to 11
also noted with continued hematuria
discussed with daughter at length addition of Eliquis may have lead to increased bleeding -- discussed options of observation on anticoagulation vs aggressive approach of scope with AC hold(though daughter agrees may be difficulty to prep) vs with
multiple medical issue and chronic dementia return to SNF with comfort measures
she will consider option and will call tomorrow with update on choice
for now continue diet, trend hbg, amd stool record
with urologic issues will check abx X ray to rule out any higher up impaction but pt has bee have frequent stool
will follow
-
-
Thank you for consultation and allowing me to participate in the patient's care. Please call the investigation manager GI physician during the after hours with any questions or concerns.
--- NOTE | 2024-01-06 14:23 | W.PN.UPDATE ---
Update Note
Progress Note Update
Pt seen, resting in bed, a little slower to respond today, states she is not feeling well 'backwards.' When asked, pt denies active suicidal ideation, plan or intent. She is talking about eventually dying. Affect is stable. Pt is calm and
cooperative, taking po medications, on 4th day of Zoloft increased to 75 mg. No side effects apparent.
Imp: Dementia with behavior disturbance, R/o depression. Mood/affect appear stable, pt denies SI.
Rec: continue current medications for dementia; continue increased Zoloft
Psychiatry will follow
[2024-01-06 15:30] VITALS: BP 140/86
--- NOTE | 2024-01-06 18:43 | PTCARENOTE ---
Addendum entered by Kizzy Batista RN 01/06/24 18:59:
Urology recommendations forwarded to attending provider via TT
Original Note:
Notified provider of patient's prasad not draining urine and the patient was complaining of abdominal discomfort. Suspected clot from frequent clots during the shift. Attempted to irrigate x3 with no return. Urology also contacted for
recommendations. Attending MD advised to replace the prasad catheter. Prasad replaced and immediately drained bloody urine with sparse clots. Patient reported feelings of relief.
[2024-01-06] MEDS: MELATONIN 3 MG PO (22:33)
[2024-01-06] MEDS: ARICEPT 10 MG PO (22:34)
[2024-01-06 23:43] VITALS: BP 139/71
--- NOTE | 2024-01-07 03:54 | DOWNTIME ---
There was a [employer] Client Exhauster Engineer Downtime on 01/06/2024 from 0100 to 01/07/2024 at 0300. Downtime documentation of patient's care, including medication administrations, has been reconciled in the electronic record per guidelines. Refer to the
patient's paper chart under the miscellaneous tab to see printed paper medication records and downtime forms.
[2024-01-07 07:00] VITALS: BP 122/78
[2024-01-07 07:43] LABS: % Basophils 0.6 % (0-2); % Eosinophils 5.2 % (0-6); % Immature Granulocytes 0.4 % (0-0.5); % Lymphocytes 25.2 % (20.5-51.1); % Neutrophils 61.6 % (42.2-75.2); Absolute Basophils 0.1 10^3/uL (0-0.2); Absolute Eosinophils 0.4 10^3/uL (0-0.7); Absolute Monocytes 0.6 10^3/uL (0.1-0.6); Hematocrit 33.7 % (37.0-47.0); Hemoglobin 11.4 g/dL (12.0-16.0); Mean Corp Hgb Conc. 33.8 g/dL (33.0-37.0); Mean Corpuscular Hgb 31.7 pg (27.0-31.0); Mean Corpuscular Volume 93.6 fL (81.0-99.0); Mean Platelet Volume 9.9 fL (7.4-10.4); Nucleated Red Blood Cells % 0 %; Platelet Count 208 10^3/uL (130-400); Red Cell Dist. Width 13.8 % (11.5-14.5); White Blood Cell Count 8.1 10^3/uL (4.8-10.8)
[2024-01-07 08:00] VITALS: BMI 39.1
[2024-01-07 08:15] LABS: Blood Urea Nitrogen 37 mg/dl (7-17); Calcium 9.3 mg/dl (8.4-10.2); Carbon Dioxide 23 mmol/L (22-30); Chloride 109 mmol/L (98-107); Estimated Creatinine Clearance 17 ml/min; Glucose 98 mg/dl (70-99); Potassium 3.5 mmol/L (3.5-5.1); Sodium 142 mmol/L (135-145); eGFR 16.97
[2024-01-07] MEDS: NAMENDA 10 MG PO ×2 (08:39→20:06)
[2024-01-07] MEDS: CLARITIN 10 MG PO (08:39)
[2024-01-07] MEDS: ZOLOFT 75 MG PO (08:42)
[2024-01-07] MEDS: FLOMAX 0.400000000000000022 MG PO (08:42)
[2024-01-07] MEDS: MAGNESIUM OXIDE PO ×3 (08:42→08:59)
[2024-01-07] MEDS: ELIQUIS 5 MG PO ×2 (08:43→20:06)
[2024-01-07] MEDS: KCL PO ×2 (08:43→09:00)
[2024-01-07] MEDS: ASPIR LOW (ENTERIC COATED) 81 MG PO (08:43)
[2024-01-07] MEDS: VISBIOME PO ×2 (08:43→09:00)
[2024-01-07] MEDS: VITAMIN B-12 PO ×2 (08:43→09:00)
[2024-01-07] MEDS: FIBERCON PO ×3 (08:43→20:31)
[2024-01-07] MEDS: HYDROPHOR 1 APPLIC TOPICAL (08:43)
[2024-01-07] MEDS: THERAGRAN 1 TABLET PO (08:43)
[2024-01-07] MEDS: OSCAL 500 + D PO ×2 (08:43→08:59)
[2024-01-07] MEDS: ZINC OXIDE OINTMENT 1 APPLIC TOPICAL ×2 (08:44→20:07)
[2024-01-07] MEDS: DESENEX/MITRAZOL/ZEASORB 1 APPLIC TOPICAL ×2 (08:44→20:06)
--- NOTE | 2024-01-07 09:37 | W.PN.HOSP.TC ---
Today's Communication/Plan
-
Hospice consult
Assessment / Plan
Assessment / Plan
Gen-awake, alert, NAD, obese
HEENT-NC, AT, anicteric, clear oral mm
Neck-supple
CV-reg, no M, +S1/S2
Lungs-clear B/L
Abd-soft, NT, ND
Ext-no edema
Musculoskeletal-no cyanosis, clubbing
Skin-warm and dry
Acute GI bleed -hemodynamically stable. Hemoglobin relatively stable. I had a long discussion with patient's daughter Holley on the phone this morning, she wants to treat her mother conservatively. Does not want GI bleed workup. Holley is
actually contemplating hospice. I placed a order for hospice to discuss goals of care with family. Holley believes that her mother wants conservative management and comfort measures at this point in time. She will discuss further with her family
after meeting with hospice. I offered to start tapering back her mother's medications but she wants to speak with hospice first.
MARJORIE - likely multifactorial in the setting of renal stone status post stent placement, prerenal versus antibiotics vs. AIN vs. ARVIND. Renal function improving, labs pending for today.
FENA indeterminant. 3% eosinophils noted
Did receive gentamicin earlier in hospitalization
s/p NS without much improvement
Bladder scan ordered and require prasad catheter placement due to severe retention/critical I&O
Renal bladder US without hydro.
Hold PPI too.
Repeat FENA on 12/31 with intrinsic renal pattern
Mild hematuria noted.
Status post IV fluid bolus on 01/01 and creatinine elevated but now worsening at 3.6 today
Patient requires assistance with feeding and oral hydration. Trial off normal saline 1 L.
appreciate nephro recs
Acute bilateral pulmonary embolism with mild right heart strain
With recent hospitalization ? Provoked due to decreased mobility
Continue Eliquis, likely for at least 3 months.
Right lower extremity Doppler No sonographic evidence for right lower extremity deep venous thrombosis.
Left LE: No sonographic evidence for left lower extremity deep venous thrombosis.
ECHO limited study as patient was argumentative. EF 55 to 60%. Diastolic function indeterminate. Right heart pressures could not be determined. Normal right ventricular size. Normal right ventricular systolic function.
appreciate input from pulmonary
Left foot fracture with Ortho boot
Venous Doppler negative for DVT
Per daughter patient is able to ambulate with a walker and improved
Recent obstructive renal stone status post ureteral stent placement at [place] by Dr. Gill
Polymicrobial urinary tract infection with VRE Enterococcus and Pseudomonas
Completed course of antibiotics.
Outpatient follow-up with urology for definitive stone management.
Per Dr. Sy, feels very strongly that pt should follow up with usual [facility]rologist ([facility]) post dc for stent and stone removal. Timing will be complicated, as should be treated for PE prior to stopping OAC in order to remove stent/stone.
As per dgtCarolina, this will be done at [facility]
Dementia
Toxic metabolic encephalopathy likely secondary to delirium
Continue with memantine and donepezil
Unclear if with behavioral disturbances
Remeron was discontinued. Sertraline dose increased to 75 mg daily.
Melatonin for insomnia at night
Please assist with feeding at all times. Please wake her up past 8 am for breakfast. Encourage oral intake/hydration.
Psych following
Overnight fall on 12/31
-CT head initial negative and 6 hours later negative for acute pathology
-CT facial negative
-Telemetry sitter ordered
-Fall precaution ongoing-sensor position changed to pt back
Mood disorder
Continue with sertraline and dose adjusted per psych
Lethargy
-Improved with holding gabapentin
GERD
Hold PPI as concern for AIN.
Neuropathy
History of sciatica
PT/OT/Tylenol
Hypokalemia
replete/monitor
Dispo -hospice consult. Case management aware.
End-of-life care discussion constitutes high risk encounter.
Anticipated Discharge: Within 24 hours
Subjective/Interval History
-
Date of Service: January 07, 2024
Patient seen and examined. No complaints currently.
Objective Data
-
Labs:
Laboratory Results
01/07/24
07:34
WBC 8.1
Hgb 11.4 L
Hct 33.7 L
Plt Count 208
Sodium 142
Potassium 3.5
Chloride 109 H
Carbon Dioxide 23
BUN 37 H
Creatinine 2.7 H
Glucose 98
Calcium 9.3
Vital Signs:
Vital Signs
Temp Pulse Resp BP Pulse Ox
97.8 F 68 14 122/78 94
01/07/24 07:00 01/07/24 07:00 01/07/24 07:00 01/07/24 07:00 01/07/24 07:00
I&O
01/06/24 01/07/24 01/08/24
06:59 06:59 06:59
Intake Total 600 / 600 480 / 480
Output Total 200 / 200 600 / 600
Balance 400 / 400 -120 / -120
Review of Systems
-
Unable to obtain full review of systems at this time due to: Dementia
History Source: Patient
All other systems: Reviewed and negative
--- NOTE | 2024-01-07 09:48 | CM ---
Addendum entered by Rocio Parks 01/07/24 11:44:
Spoke with daughter Holley, she would like to meet with the Hospice nurse.
Daughter stated if patient goes on hospice they would probably like to go to [facility] (the have a bed).
TT to Hospice nurse.
Original Note:
Hospice consult received.
Left VM for Holley to discuss. Await TCB.
Awaiting skilled bed at [facility], may need to adjust plan.
Plan: TBD
--- NOTE | 2024-01-07 09:50 | W.PN.GI.CBS2 ---
Addendum entered and electronically signed by Cheryl Vandana DO Amrik 01/07/24 10:41:
I saw and examined the patient.
The OIL REFINERY PROCESS TECHNICIAN or PA's note was reviewed and I agree with the note.
Comment: Discussed with family and attending physician, Dr. Johnson. At this time, family opting for conservative measures and hospice care. GI will sign off, please call with questions.
Original Note:
Today's Communication / Plan
-
etiology of rectal bleeding related to local source such as hemorrhoids though not noted on exam 01/05 , diverticular bleed, polyp, anastomotic ulcer with hx resection/stricture, mass, AVM vs other
mild anemia multifactorial with hematuria and GI bleeding with Eliquis use
minimal drop in hbg 13-14 range to 11 and still 11.4 today
no signs of aggressive GI bleed
abd film without obstructive process
cont diet as tolerated
discussed at length with daughter yesterday
reviewed with Dr. Johnson family has now opted for conservative measures
agree with plan with multiple medical issues with underlying dementia
will sign off call if we can be of any further assistance
Assessment / Plan
-
Pt is an 83yo with hx multiple medical problems including bowel perforation with temporary ostomy and reversal at [place] 5-6 years ago, dementia, neuropathy, GERD, renal stones, asthma with recent [facility] admission for ureteral stent
placement. She also had recent foot fracture. She presented on 12/17 with concern for weakness with abdominal pain and vomiting. She was noted with hypoxemia and CT on admission with b/l PE and initially placed on heparin Gtt then Eliquis. During
admission she was noted with worsening MARJORIE (prerenal, abx, vs other) with nephrology consultation, UTI with VRE and ID consultation, TME with delerium- psych eval, and fall 12/31. She is now noted with rectal bleeding with passing clots and
asked to evaluate.
01/05 abd film-Right double-J stent. Stable.No evidence of intestinal obstruction. air in colon
-rectal bleeding
-anemia
-ureteral stones with stent/hydro/heamaturia
-b/l PE on Eliquis
-MARJORIE
-recent foot fx
-TME
-recent fall
other medical problems:
-hx sigmoid resection with temp ostomy then reversal
-hepatic steatosis
-dementia
-GERD
-mood disorder
-neuropathy
PLAN:
etiology of rectal bleeding related to local source such as hemorrhoids though not noted on exam 01/05 , diverticular bleed, polyp, anastomotic ulcer with hx resection/stricture, mass, AVM vs other
mild anemia multifactorial with hematuria and GI bleeding with Eliquis use
minimal drop in hbg 13-14 range to 11 and still 11.4 today
no signs of aggressive GI bleed
abd film without obstructive process
cont diet as tolerated
discussed at length with daughter yesterday
reviewed with Dr. Johnson family has now opted for conservative measures
agree with plan with multiple medical issues with underlying dementia
will sign off call if we can be of any further assistance
Subjective
Subjective
Date of Service: January 07, 2024
brown heme + large stool overnight, on regular diet still with hematuria
Objective
Data Reviewed
Laboratory Data:
Laboratory Results
01/07/24 07:34
01/07/24 07:34
Laboratory Results
APTT 76.5 Sec (23.4-35.0) H 12/22/23 07:11
Magnesium 2.7 mg/dl (1.6-2.3) H 01/01/24 06:22
Total Bilirubin 0.6 mg/dl (0.2-1.3) 12/18/23 20:01
AST 38 U/L (14-36) H 12/18/23 20:01
ALT 22 U/L (0-35) 12/18/23 20:01
Alkaline Phosphatase 89 U/L (38-126) 12/18/23 20:01
Lipase 39 U/L (23-300) 12/18/23 20:01
Vital Signs and I&O:
Vital Signs
Temp Pulse Resp BP Pulse Ox
97.8 F 68 14 122/78 94
01/07/24 07:00 01/07/24 07:00 01/07/24 07:00 01/07/24 07:00 01/07/24 07:00
I&O
01/06/24 01/07/24 01/08/24
06:59 06:59 06:59
Intake Total 600 / 600 480 / 480
Output Total 200 / 200 600 / 600
Balance 400 / 400 -120 / -120
Physical Exam
Physical Exam
HEENT: Anicteric and Moist mucous membranes
Cardiology: Normal Sinus Rhythm
Pulmonary: Clear
GI: Soft, Non Distended, Non Tender and Other (remains with blood tinged urine)
Extremities: No Edema
Neuro: Other (confused )
--- NOTE | 2024-01-07 09:57 | PTCARENOTE ---
Notified provider in person during rounds that the patient refused some of her morning medications. No additional bloody stool overnight as well.
--- NOTE | 2024-01-07 10:05 | W.PN.UPDATE ---
Update Note
Progress Note Update
Deric is rather drowsy but doies not report significant dysphoria or anhedonia, denies hopelessness or suicidal thoughts. Difficult to test cognitively as she keeps falling asleep.
Would continue current dose of 75 mg of Zoloft.
--- NOTE | 2024-01-07 12:50 | HOSPNOTE ---
Spoke with both daughters right now they both feel rehab would be appropriate so they can make some decisions. They know hospice will be needed but they need to make some decisions about where to do hospice services. Case management updated.
[2024-01-07 16:00] VITALS: BP 124/68
--- NOTE | 2024-01-07 17:11 | PTCARENOTE ---
Remote video monitoring removed at 1700
[2024-01-07] MEDS: OSCAL 500 + D 500 MG PO (17:23)
[2024-01-07] MEDS: MAGNESIUM OXIDE 500 MG PO (17:23)
[2024-01-07] MEDS: ARICEPT 10 MG PO (20:06)
[2024-01-07 22:50] VITALS: BP 137/84
[2024-01-07] MEDS: MELATONIN PO (23:26)
[2024-01-08 06:00] VITALS: BMI 37.9
[2024-01-08 07:00] VITALS: BP 141/76
[2024-01-08] MEDS: ZINC OXIDE OINTMENT 1 APPLIC TOPICAL (08:15)
[2024-01-08] MEDS: HYDROPHOR 1 APPLIC TOPICAL (08:15)
[2024-01-08] MEDS: DESENEX/MITRAZOL/ZEASORB 1 APPLIC TOPICAL (08:15)
[2024-01-08] MEDS: FIBERCON 625 MG PO (08:18)
[2024-01-08] MEDS: OSCAL 500 + D 500 MG PO (08:18)
[2024-01-08] MEDS: VISBIOME 1 CAP PO (08:18)
[2024-01-08] MEDS: ZOLOFT 75 MG PO (08:18)
[2024-01-08] MEDS: ELIQUIS 5 MG PO (08:18)
[2024-01-08] MEDS: THERAGRAN 1 TABLET PO (08:18)
[2024-01-08] MEDS: FLOMAX 0.400000000000000022 MG PO (08:19)
[2024-01-08] MEDS: CLARITIN 10 MG PO (08:19)
[2024-01-08] MEDS: NAMENDA 10 MG PO (08:19)
[2024-01-08] MEDS: ASPIR LOW (ENTERIC COATED) 81 MG PO (08:19)
[2024-01-08] MEDS: KCL 20 MEQ PO (08:19)
[2024-01-08] MEDS: MAGNESIUM OXIDE 500 MG PO (08:19)
[2024-01-08] MEDS: VITAMIN B-12 100 MCG PO (08:19)
--- NOTE | 2024-01-08 09:52 | CM ---
TC to daughter Holley.
Holley spoke with Hospice yesterday and with sister.
Per Holley they would like skilled rehab at the [facility].
IMM reviewed and explained to daughter Holley via phone, copy to be sent with patients belongings.
Dolly Ji from [facility] received insurance authorization:
Auth# [id number] approved 01/07/24-01/09/24, fax updates to [phone].
Ambulance transport forms completed.
[facility]
Report# [phone]
--- NOTE | 2024-01-08 10:04 | W.PN.HOSP.TC ---
Today's Communication/Plan
-
Discharge
Assessment / Plan
Assessment / Plan
Gen-awake, alert, NAD, obese
HEENT-NC, AT, anicteric, clear oral mm
Neck-supple
CV-reg, no M, +S1/S2
Lungs-clear B/L
Abd-soft, NT, ND
Ext-no edema
Musculoskeletal-no cyanosis, clubbing, bruising on both knees, left knee warm but range of motion normal.
Skin-warm and dry
Acute GI bleed -hemodynamically stable. Hemoglobin relatively stable. I had a long discussion with patient's daughter Holley, she wants to treat her mother conservatively. Does not want GI bleed workup. Holley is actually contemplating hospice.
I placed a order for hospice to discuss goals of care with family. Holley believes that her mother wants conservative management and comfort measures at this point in time. She will discuss further with her family after meeting with hospice. I
offered to start tapering back her mother's medications but she wants to speak with hospice first.
Today nursing reports stool has turned brown. No further bleeding.
MARJORIE - likely multifactorial in the setting of renal stone status post stent placement, prerenal versus antibiotics vs. AIN vs. ARVIND. Renal function improving.
FENA indeterminant. 3% eosinophils noted
Did receive gentamicin earlier in hospitalization
s/p NS without much improvement
Bladder scan ordered and require prasad catheter placement due to severe retention/critical I&O
Renal bladder US without hydro.
Hold PPI too.
Repeat FENA on 12/31 with intrinsic renal pattern
Mild hematuria noted.
Status post IV fluid bolus on 01/01 and creatinine elevated but now worsening at 3.6 today
Patient requires assistance with feeding and oral hydration. Trial off normal saline 1 L.
appreciate nephro recs
Acute bilateral pulmonary embolism with mild right heart strain
With recent hospitalization ? Provoked due to decreased mobility
Continue Eliquis, likely for at least 3 months.
Right lower extremity Doppler No sonographic evidence for right lower extremity deep venous thrombosis.
Left LE: No sonographic evidence for left lower extremity deep venous thrombosis.
ECHO limited study as patient was argumentative. EF 55 to 60%. Diastolic function indeterminate. Right heart pressures could not be determined. Normal right ventricular size. Normal right ventricular systolic function.
appreciate input from pulmonary
Left foot fracture with Ortho boot
Venous Doppler negative for DVT
Per daughter patient is able to ambulate with a walker and improved
Recent obstructive renal stone status post ureteral stent placement at [place] by Dr. Gill
Polymicrobial urinary tract infection with VRE Enterococcus and Pseudomonas
Completed course of antibiotics.
Outpatient follow-up with urology for definitive stone management.
Per Dr. Sy, feels very strongly that pt should follow up with usual Urologist ([facility]) post dc for stent and stone removal. Timing will be complicated, as should be treated for PE prior to stopping OAC in order to remove stent/stone.
As per dgCarolina rudolph, this will be done at [facility]
Dementia
Toxic metabolic encephalopathy likely secondary to delirium
Continue with memantine and donepezil
Unclear if with behavioral disturbances
Remeron was discontinued. Sertraline dose increased to 75 mg daily.
Melatonin for insomnia at night
Please assist with feeding at all times. Please wake her up past 8 am for breakfast. Encourage oral intake/hydration.
Psych following
Overnight fall on 12/31
-CT head initial negative and 6 hours later negative for acute pathology
-CT facial negative
-Telemetry sitter ordered
-Fall precaution ongoing-sensor position changed to pt back
Mood disorder
Continue with sertraline and dose adjusted per psych
Lethargy
-Improved with holding gabapentin
GERD
Hold PPI as concern for AIN.
Neuropathy
History of sciatica
PT/OT/Tylenol
Hypokalemia
replete/monitor
Ambulatory dysfunction -multifactorial etiology including obesity, deconditioning, dementia, etc.
Suspect osteoarthritis of knees contributing. Left knee warmth palpated but range of motion normal. Will treat conservatively in light of her comorbidities. Avoid NSAIDs due to renal failure.
Dispo -discussed with case management. Family has decided to go for [facility] facility placement with subsequent transition to hospice. Stable for discharge.
32 minutes spent in discharge process.
Anticipated Discharge: Today
Subjective/Interval History
-
Date of Service: January 08, 2024
Patient seen and examined. Complaining of left knee pain.
Objective Data
-
Vital Signs:
Vital Signs
Temp Pulse Resp BP Pulse Ox
97.7 F 69 16 141/76 93
01/08/24 07:00 01/08/24 07:00 01/08/24 07:00 01/08/24 07:00 01/08/24 07:00
I&O
01/07/24 01/08/24 01/09/24
06:59 06:59 06:59
Intake Total 480 / 480 360 / 360
Output Total 600 / 600 700 / 700
Balance -120 / -120 -340 / -340
Review of Systems
-
History Source: Patient
All other systems: Reviewed and negative
--- NOTE | 2024-01-08 10:10 | W.DS.TRANS ---
DC Summary - [employer] Inspector
-
Discharge Instructions:
Discharge Diagnosis/Procedures Acute kidney injury, bilateral pulmonary emboli,
ambulatory dysfunction, left foot fracture
Diet Regular
Activity With assistance,As tolerated
Driving Restrictions No driving
Bathing Restrictions None
Instructions:
Stand-Alone Forms:
Changes to Home Medications: No
Discharge Medications:
DC Medications w/original date entered in [facility]
Lactobacillus rhamnosus GG 10 billion cell capsule (Culturelle) 1 cap PO DAILY probiotic 12/18/23
albuterol sulfate 90 mcg/actuation aerosol inhaler 2 puff inhalation R Q4HPRN PRN wheezing 12/18/23
aspirin 81 mg tablet,delayed release 81 mg PO DAILY Blood Clot Prevention/Tx 12/18/23
calcium carbonate 600 mg-vitamin D3 20 mcg (800 unit) chewable tablet (Caltrate 600 plus D) 1 tab PO BID@0800,1700 Supplement 12/18/23
cyanocobalamin (vitamin B-12) 100 mcg tablet 100 mcg PO DAILY Supplement 12/18/23
donepezil 10 mg tablet 10 mg PO DAILY@1999 cognitive impairment 12/18/23
fexofenadine 180 mg tablet 180 mg PO DAILY Allergies 12/18/23
fiber 2 cap PO BID@0800,1999 Constipation 12/18/23
guaifenesin 100 mg/5 mL oral liquid 200 mg PO Q6HPRN PRN cough 12/18/23
magnesium oxide 400 mg PO BID@0800,1700 Supplement 12/18/23
miconazole nitrate 2 % topical cream 1 applic topical BID@00,1999 [place]/labia 12/18/23
mineral oil-hydrophil petrolat topical ointment 1 applic topical DAILY B/L arms and legs 12/18/23
omega 2-gyi-vmh-fish oil 1,000 mg (120 mg-180 mg) capsule (Fish Oil) 1 cap PO DAILY Supplement 12/18/23
tamsulosin 0.4 mg capsule 0.4 mg PO DAILY Urinary Issue 12/18/23
therapeutic multivitamin 1 tab PO DAILY Supplement 12/18/23
zinc oxide 20 % topical ointment 1 applic topical BID@0800,2000 sacrum 12/18/23
apixaban 5 mg tablet (Eliquis) 5 mg PO BID #0 tabs 01/06/24
bisacodyl 10 mg rectal suppository 10 mg OR [id number] PRN constipation #0 ea 01/06/24
melatonin 3 mg tablet 3 mg PO HS #0 tabs 01/06/24
memantine 10 mg tablet 10 mg PO BID #0 tabs 01/06/24
potassium chloride 20 mEq tablet,extended release(part/cryst) 20 meq PO DAILY #0 tabs 01/06/24
sertraline 50 mg tablet 75 mg (1.5 x 50 mg) PO DAILY #0 tabs 01/06/24
Home Medication Changes
Pending Results: No
[2024-01-08 13:00] VITALS: BP 140/66
== END 2024-01-08 13:29 | DRG 175 ==
LOC: 4 WEST ACU 08:12
PROVIDERS: Emergency Medicine; Hospitalist; Internal Medicine; Nurse Practitioner Family; Nurse Practitioner Gerontology; Registered Nurse; Student in an Organized Health Care Education/Training Program; ADMITTING PHYSICIAN Internal Medicine; ATTENDING PHYSICIAN Hospitalist; CONSULT PHYSICIAN Internal Medicine Critical Care Medicine; CONSULT PHYSICIAN Internal Medicine Infectious Disease; CONSULT PHYSICIAN Specialist; EMERGENCY PHYSICIAN Emergency Medicine; FAMILY PHYSICIAN Hospitalist; OTHER PHYSICIAN Internal Medicine; OTHER PHYSICIAN Psychiatry & Neurology Psychiatry
DX: I26.99 Other pulmonary embolism without acute cor pulmonale (principal); G92.8 Other toxic encephalopathy; K57.31 Diverticulosis of large intestine without perforation or abscess with bleeding; N20.2 Calculus of kidney with calculus of ureter; N13.6 Pyonephrosis; J98.11 Atelectasis; Z68.42 Body mass index [BMI] 45.0-49.9, adult; Z16.11 Resistance to penicillins; N17.9 Acute kidney failure, unspecified; Z16.21 Resistance to vancomycin; F02.818 Dementia in other diseases classified elsewhere, unspecified severity, with other behavioral disturbance; Z51.5 Encounter for palliative care; R09.02 Hypoxemia; K21.9 Gastro-esophageal reflux disease without esophagitis; B96.5 Pseudomonas (aeruginosa) (mallei) (pseudomallei) as the cause of diseases classified elsewhere; I51.9 Heart disease, unspecified; J45.909 Unspecified asthma, uncomplicated; E66.01 Morbid (severe) obesity due to excess calories; G30.9 Alzheimer's disease, unspecified; F32.A Depression, unspecified; K76.0 Fatty (change of) liver, not elsewhere classified; B95.2 Enterococcus as the cause of diseases classified elsewhere; E87.6 Hypokalemia; D64.9 Anemia, unspecified; G47.00 Insomnia, unspecified; D72.10 Eosinophilia, unspecified; R06.89 Other abnormalities of breathing; G62.9 Polyneuropathy, unspecified; S92.902D Unspecified fracture of left foot, subsequent encounter for fracture with routine healing; X58.XXXD Exposure to other specified factors, subsequent encounter; Z74.09 Other reduced mobility; Z66 Do not resuscitate; Z91.041 Radiographic dye allergy status; Z91.040 Latex allergy status; Z79.82 Long term (current) use of aspirin; Z87.442 Personal history of urinary calculi; Z87.440 Personal history of urinary (tract) infections; Z86.711 Personal history of pulmonary embolism
CPT/HCPCS: 70450; 70486; 71275; 74018; 74177; 76770; 80048; 80053; 80170; 81003; 81015; 81099; 82565; 82570; 82962; 83690; 83735; 84300; 84520; 85014; 85018; 85025; 85027; 85730; 86063; 87070; 87077; 87086; 87088; 87186; 93005; 93306; 93971; 96360; 97163; 97167; 97530; 97535; 99285; J0878; J2407; Q9967